=== PATIENT | female | born 1960 | race Caucasian/White ===

== ENCOUNTER 2017-04-03 17:33 | Inpatient (IN) | payer OTHER ==
[~2017-04-03] VITALS: Ht 162.6 cm; Wt 89.6 kg
[~2017-04-03 17:33] MED LIST: ALBU90OI INH; ATOR80 PO; Aspirin EC81 MG PO; CLOP75 PO; LISI5 PO; LORA10 PO; METO50 PO; NITR.4SL SL
[2017-04-03 19:05] LABS: Influenza A Positive (NEGATIVE); Influenza B Negative (NEGATIVE)
[2017-04-03] MEDS ORDERED: Atrovent Inha12.9 GM INH (19:16)
[2017-04-03] MEDS ORDERED: ALBU90OI INH (19:16)
[2017-04-03] MEDS ORDERED: LEVO750 PO (19:16)
[2017-04-03] MEDS ORDERED: Prednisone50 MG PO (19:16)
[2017-04-03 19:50] LABS: BASOPHILS ABSOLUTE AUTO 0.03 K/mm3 (0.00-0.23); BASOPHILS PERCENT AUTO 1 % (0-2); EOSINOPHILS ABSOLUTE AUTO 0.01 K/mm3 (0.00-0.68); EOSINOPHILS PERCENT AUTO 0 % (0-6); Hemoglobin 14.4 g/dL (11.5-16.0); IMMATURE GRAN ABSOLUTE AUTO 0.02 K/mm3 (0.00-0.10); IMMATURE GRAN PERCENT AUTO 0 % (0-1); LYMPHOCYTES ABSOLUTE AUTO 1.31 K/mm3 (0.84-5.20); LYMPHOCYTES PERCENT AUTO 22 % (21-46); MONOCYTES ABSOLUTE AUTO 0.73 K/mm3 (0.16-1.47); MONOCYTES PERCENT AUTO 12 % (4-13); Mean Corpuscular HGB 32.1 pg (26.0-34.0); Mean Corpuscular HGB Conc 32.7 g/dL (31.5-36.5); Mean Corpuscular Volume 98 fL (80-100); Mean Platelet Volume 12.4 fL (9.1-12.4); NEUTROPHILS ABSOLUTE AUTO 3.84 K/mm3 (1.96-9.15); NEUTROPHILS PERCENT AUTO 65 % (41-73); Platelet Count 123 K/mm3 (150-400); RDW Coefficient Variation 13.1 % (11.7-14.2); RDW Standard Deviation 46.7 fL (35.1-46.3); Red Blood Cell Count 4.49 M/mm3 (3.80-5.20); White Blood Cell Count 5.94 K/mm3 (4.00-11.30)
[2017-04-03 20:00] LABS: Alanine Aminotransfer (ALT/SGP 19 U/L (12-78); Albumin, Blood 3.1 g/dL (3.4-5.0); Albumin/Globulin Ratio 0.9 (0.8-1.8); Alk Phos 73 U/L (50-136); Anion Gap 9 mmol/L (6-16); Aspartate Aminotrans (AST/SGOT 20 U/L (12-37); Bilirubin, Total 0.9 mg/dL (0.1-1.0); Blood Urea Nitrogen 11 mg/dL (8-24); Bun/Creatinine Ratio 21.8 (12.0-20.0); CO2, Blood 32 mmol/L (21-32); Calcium, Blood 8.6 mg/dL (8.5-10.1); Chloride, Blood 101 mmol/L (98-108); Creatinine, Blood 0.51 mg/dL (0.40-1.00); Globulin, Blood 3.6 g/dL (2.2-4.0); Glomerular Filtration Rate >60 (60-); Glucose, Blood 120 mg/dL (70-99); Potassium, Blood 2.5 mmol/L (3.5-5.5); Sodium, Blood 142 mmol/L (136-145); Total Protein, Blood 6.7 g/dL (6.4-8.2)
[2017-04-03 21:32] LABS: Troponin I 0.016 ng/mL (0.000-0.040)
[2017-04-04 04:24] LABS: BASOPHILS ABSOLUTE AUTO 0.01 K/mm3 (0.00-0.23); BASOPHILS PERCENT AUTO 0 % (0-2); EOSINOPHILS PERCENT AUTO 0 % (0-6); Hematocrit 42.6 % (33.0-51.0); Hemoglobin 13.6 g/dL (11.5-16.0); IMMATURE GRAN ABSOLUTE AUTO 0.04 K/mm3 (0.00-0.10); IMMATURE GRAN PERCENT AUTO 1 % (0-1); LYMPHOCYTES ABSOLUTE AUTO 0.77 K/mm3 (0.84-5.20); LYMPHOCYTES PERCENT AUTO 9 % (21-46); MONOCYTES ABSOLUTE AUTO 0.38 K/mm3 (0.16-1.47); MONOCYTES PERCENT AUTO 5 % (4-13); Mean Corpuscular HGB 32.1 pg (26.0-34.0); Mean Corpuscular HGB Conc 31.9 g/dL (31.5-36.5); Mean Platelet Volume 12.5 fL (9.1-12.4); NEUTROPHILS PERCENT AUTO 85 % (41-73); Platelet Count 130 K/mm3 (150-400); RDW Coefficient Variation 13.1 % (11.7-14.2); RDW Standard Deviation 48.7 fL (35.1-46.3); Red Blood Cell Count 4.24 M/mm3 (3.80-5.20)
[2017-04-04 04:25] LABS: Mean Corpuscular Volume 101 fL (80-100)
[2017-04-04 04:53] LABS: Alanine Aminotransfer (ALT/SGP 18 U/L (12-78); Albumin, Blood 2.7 g/dL (3.4-5.0); Albumin/Globulin Ratio 0.7 (0.8-1.8); Alk Phos 66 U/L (50-136); Anion Gap 5 mmol/L (6-16); Aspartate Aminotrans (AST/SGOT 13 U/L (12-37); Bilirubin, Total 0.8 mg/dL (0.1-1.0); Blood Urea Nitrogen 11 mg/dL (8-24); Bun/Creatinine Ratio 25.1 (12.0-20.0); CO2, Blood 31 mmol/L (21-32); Calcium, Blood 7.6 mg/dL (8.5-10.1); Chloride, Blood 108 mmol/L (98-108); Creatinine, Blood 0.44 mg/dL (0.40-1.00); Globulin, Blood 3.7 g/dL (2.2-4.0); Glomerular Filtration Rate >60 (60-); Glucose, Blood 131 mg/dL (70-99); Potassium, Blood 3.4 mmol/L (3.5-5.5); Sodium, Blood 144 mmol/L (136-145); Total Protein, Blood 6.4 g/dL (6.4-8.2)
[2017-04-05 06:07] LABS: BASOPHILS ABSOLUTE AUTO 0.01 K/mm3 (0.00-0.23); BASOPHILS PERCENT AUTO 0 % (0-2); EOSINOPHILS PERCENT AUTO 0 % (0-6); Hematocrit 38.7 % (33.0-51.0); Hemoglobin 12.4 g/dL (11.5-16.0); Mean Corpuscular Volume 100 fL (80-100); Mean Platelet Volume 12.3 fL (9.1-12.4); Platelet Count 122 K/mm3 (150-400); RDW Coefficient Variation 13.2 % (11.7-14.2); RDW Standard Deviation 48.4 fL (35.1-46.3); Red Blood Cell Count 3.87 M/mm3 (3.80-5.20); White Blood Cell Count 7.31 K/mm3 (4.00-11.30)
[2017-04-05 06:09] LABS: IMMATURE GRAN ABSOLUTE AUTO 0.07 K/mm3 (0.00-0.10); IMMATURE GRAN PERCENT AUTO 1 % (0-1); LYMPHOCYTES PERCENT AUTO 19 % (21-46); MONOCYTES ABSOLUTE AUTO 0.25 K/mm3 (0.16-1.47); MONOCYTES PERCENT AUTO 3 % (4-13); NEUTROPHILS ABSOLUTE AUTO 5.58 K/mm3 (1.96-9.15); NEUTROPHILS PERCENT AUTO 76 % (41-73)
[2017-04-05 06:35] LABS: Anion Gap 7 mmol/L (6-16); Blood Urea Nitrogen 11 mg/dL (8-24); Bun/Creatinine Ratio 24.6 (12.0-20.0); CO2, Blood 27 mmol/L (21-32); Calcium, Blood 8.3 mg/dL (8.5-10.1); Chloride, Blood 109 mmol/L (98-108); Creatinine, Blood 0.45 mg/dL (0.40-1.00); Glomerular Filtration Rate >60 (60-); Glucose, Blood 156 mg/dL (70-99); Magnesium, Blood 1.9 mg/dL (1.6-2.4); Potassium, Blood 3.4 mmol/L (3.5-5.5); Sodium, Blood 143 mmol/L (136-145)
[2017-04-06 06:10] LABS: Anion Gap 7 mmol/L (6-16); Blood Urea Nitrogen 12 mg/dL (8-24); Bun/Creatinine Ratio 25.4 (12.0-20.0); CO2, Blood 28 mmol/L (21-32); Calcium, Blood 8.3 mg/dL (8.5-10.1); Chloride, Blood 107 mmol/L (98-108); Creatinine, Blood 0.47 mg/dL (0.40-1.00); Glomerular Filtration Rate >60 (60-); Glucose, Blood 149 mg/dL (70-99); Potassium, Blood 3.5 mmol/L (3.5-5.5); Sodium, Blood 142 mmol/L (136-145)
[2017-04-06] MEDS ORDERED: AZIT250 PO (14:17)
[2017-04-06] MEDS ORDERED: OSEL75CA PO (14:17)
[2017-04-06] MEDS ORDERED: PRED10 PO (14:20)
== END 2017-04-06 14:38 | disposition home or self-care (01) | DRG 871 ==
LOC: ER 17:33 → PCU 21:03 → MEDS 04-04 10:59 → ENPENDDIS 04-06 11:00 → MEDS 04-06 14:38
PROVIDERS: Emergency Medicine; Family Medicine; Internal Medicine
DX: A41.9 Sepsis, unspecified organism (principal); J09.X1 Influenza due to identified novel influenza A virus with pneumonia; J96.21 Acute and chronic respiratory failure with hypoxia; J44.0 Chronic obstructive pulmonary disease with (acute) lower respiratory infection; J44.1 Chronic obstructive pulmonary disease with (acute) exacerbation; F17.210 Nicotine dependence, cigarettes, uncomplicated; I25.2 Old myocardial infarction; I10 Essential (primary) hypertension; E87.6 Hypokalemia; E78.5 Hyperlipidemia, unspecified
CPT/HCPCS: 36415; 71046; 80048; 80053; 83735; 84484; 85025; 87070; 87205; 87804; 93005; 93010; 94640; 94760; 94762; 96365; 96366; 96367; 96368; 96372; 96375; 99285; J0456; J0696; J1100; J1650; J2920; J3480; J7030; J7040; J7050

== ENCOUNTER → 2018-10-30 | Outpatient (CLI) | payer OTHER ==
[~2018-10-30] MED LIST changes: +AZIT250 PO; +Atrovent Inha12.9 GM INH; +LEVO750 PO; +OSEL75CA PO; +PRED10 PO; +Prednisone50 MG PO
[2018-10-30 18:23] LABS: CHOL/HDL RATIO 5.1; Cholesterol 249 mg/dL (50-200); HDL Cholesterol 49 mg/dL (>39); LDL/HDL RATIO Unable to Calculate; Low Density Lipoprotein Chol Unable to Calculate mg/dL (0-110); Triglycerides 444 mg/dL (30-160); Very Low Density Lipoprot Chol Unable to Calculate mg/dL (6-32)
== END | disposition home or self-care (01) ==
LOC: LAB 17:22 → LAB SHORT 17:22
PROVIDERS: Nurse Practitioner Family
DX: E78.00 Pure hypercholesterolemia, unspecified (principal)
CPT/HCPCS: 80061

== ENCOUNTER 2021-12-07 09:25 | Inpatient (IN) | payer OTHER ==
[~2021-12-07] VITALS: Ht 162.6 cm; Wt 107.2 kg
[2021-12-07 10:41] LABS: BASOPHILS ABSOLUTE AUTO 0.07 K/mm3 (0.00-0.23); BASOPHILS PERCENT AUTO 1 % (0-2); EOSINOPHILS ABSOLUTE AUTO 0.04 K/mm3 (0.00-0.68); EOSINOPHILS PERCENT AUTO 0 % (0-6); Hematocrit 44.2 % (33.0-51.0); Hemoglobin 14.1 g/dL (11.5-16.0); IMMATURE GRAN ABSOLUTE AUTO 0.05 K/mm3 (0.00-0.10); IMMATURE GRAN PERCENT AUTO 1 % (0-1); LYMPHOCYTES ABSOLUTE AUTO 1.52 K/mm3 (0.84-5.20); LYMPHOCYTES PERCENT AUTO 15 % (21-46); MONOCYTES ABSOLUTE AUTO 0.53 K/mm3 (0.16-1.47); MONOCYTES PERCENT AUTO 5 % (4-13); Mean Corpuscular HGB Conc 31.9 g/dL (31.5-36.5); Mean Corpuscular Volume 101 fL (80-100); Mean Platelet Volume 11.7 fL (9.1-12.4); NEUTROPHILS ABSOLUTE AUTO 8.17 K/mm3 (1.96-9.15); NEUTROPHILS PERCENT AUTO 79 % (41-73); Platelet Count 193 K/mm3 (150-400); RDW Coefficient Variation 14.1 % (11.7-14.2); RDW Standard Deviation 51.5 fL (35.1-46.3); White Blood Cell Count 10.38 K/mm3 (4.00-11.30)
[2021-12-07 10:57] LABS: Albumin, Blood 3.4 g/dL (3.4-5.0); Albumin/Globulin Ratio 0.9 (0.8-1.8); Bilirubin, Total 2.1 mg/dL (0.1-1.0); Bun/Creatinine Ratio 26.3 (12.0-20.0); Calcium, Blood 9.4 mg/dL (8.5-10.1); Creatinine, Blood 0.49 mg/dL (0.40-1.00); Globulin, Blood 3.6 g/dL (2.2-4.0); Potassium, Blood 3.5 mmol/L (3.5-5.5)
[2021-12-07 12:15] LABS: Influenza A, PCR NEGATIVE (NEGATIVE); Influenza B, PCR NEGATIVE (NEGATIVE); Resp Syncytial Virus, PCR NEGATIVE (NEGATIVE); SARS-Cov-2 (COVID-19) PCR, MMC NEGATIVE (NEGATIVE)
--- NOTE | 2021-12-07 18:31 | NUR ---
SHIFT SUMMARY ASSUMED CARE OF PT AT 1520. PT ARRIVED FROM ER VIA HOSPITAL BED. PT ON 2 L O2 VIA NC, O2 SATS 93%. PT REPORTS SOB AND APPEARS TO BE ANXIOUS. PT UP ON SIDE OF BED AND STATES " I CANNOT LAY DOWN". VS;HR 115, SBP 130 - 140'S, RR 22. PT SETTLED AND ORIENTED TO ROOM. PT CALMED SHE GOT SETTLED AND STARTED "FEELING BETTER". POWERGLIDE PLACED IN R UA. PT ATE DINNER, CARDIZIEM GTT RUNNING AT 15MLS/HR. PT CURRENTLY SITTING UP IN BED W/HOB ELEVATED. PT USING BSC INDEPENDENTLY. PT USING FREQUENTLY AND EXPERIENCING URGENCY DUE TO LASIX. PT CURRENTLT WATCHING TV AND APPEARS RELAXED AND STATES SOB IS BETTER. CALL LIGHT IN REACH
--- NOTE | 2021-12-07 23:10 | NUR ---
PT HAS BEEN A&OX4. O2 SATS > 92% ON 2LPM. STATES HAS IMPROVED BUT IS STILL PRESENT. INCREASES WHEN UP TO BSC. PT UP TO BSC WITH INDEPENDENTLY TO VOID CLEAR, YELLOW URINE, HAD SMALL, BROWN, FORMED BM. PT COMPLAINING OF INTERMITTENT MIDSTERNAL CHEST PAIN 5/10 THAT "FEELS LIKE INDIGESTION". PT REPORTS PAIN IS IN FRONT AND BACK BUT DOES NOT RADIATE ANYWHERE ELSE. NO CHANGES TO VITAL SIGNS OF TELEMETRY WITH PAIN. REPORTS PT HAVING THIS SENSATION AT HOME REQUENTLY AND TREATS IT WITH TUMS. DR. CASTELLON INFORMED. RECEIVED ORDER FOR TUMS. CHEST PAIN SUBSIDES BEFORE TUMS GIVEN. WILL MONITOR.
--- NOTE | 2021-12-07 23:43 | NUR ---
MARVIN CANTOR STOPPED AT 1930 WITH HR IN 70'S. PT NOW IN 90'S TO LOW 100'S. WILL CONTINUES TO MONITOR.
[2021-12-08 03:49] LABS: Hematocrit 41.1 % (33.0-51.0); Hemoglobin 12.9 g/dL (11.5-16.0); Mean Corpuscular HGB Conc 31.4 g/dL (31.5-36.5); Mean Corpuscular Volume 102 fL (80-100); Mean Platelet Volume 11.9 fL (9.1-12.4); Platelet Count 158 K/mm3 (150-400); RDW Standard Deviation 52.3 fL (35.1-46.3); Red Blood Cell Count 4.03 M/mm3 (3.80-5.20); White Blood Cell Count 9.08 K/mm3 (4.00-11.30)
[2021-12-08 04:04] LABS: Bun/Creatinine Ratio 21.9 (12.0-20.0); Calcium, Blood 8.7 mg/dL (8.5-10.1); Creatinine, Blood 0.55 mg/dL (0.40-1.00); Magnesium, Blood 2.1 mg/dL (1.6-2.4); Potassium, Blood 3.2 mmol/L (3.5-5.5)
--- NOTE | 2021-12-08 05:51 | NUR ---
PT HAS HAD NO ACUTE CHANGES DURING THIS SHIFT. HR HAS REMAINED IN 90-LOW 100'S. OCCASIONAL SPIKES INTO 130'S BUT QUICKLY RETURNS TO 90'S AGAIN. NO FURTHER COMPLAINTS OF CHEST PAIN. O2 SATS REMAINED <90% ON 2LPM.
--- NOTE | 2021-12-08 16:49 | NUR ---
SHIFT SUMMARY: NEW ATRIAL FIB WITH RVR WELL CHF PATIENT IS A&OX4. PATIENTS HR AT REST STAYS BETWEEN 90-LOW 100'S BPM. HER HR WILL AT TIMES INCREASE TO 130 BPM WHEN BEARING DOWN/MOVEMENT BUT WILL QUICKLY COME DOWN TO HER RESTING HR RANGE. SHE IS ON 2L NC WITH >90% OXYGEN SATS. SHE DENIES SOB OR CHEST PAIN. SHE IS VOIDING AND IS TOLERATING PO INTAKE. SHE IS INDEP. TO THE BSC AND BED. PATIENT REPORTED HAVING A HEADACHE EARLIER IN THE SHIFT BUT WAS MANAGED WITH PO TYLENOL. CALLS APPROPRIATELY. CALL LIGHT WITHIN REACH. THE PLAN IS TO SWITCH HER IV LASIX TO PO TOMORROW. SHE WILL POSSIBLY DISCHARGE HOME TOMORROW OR FRIDAY IF APPROPRIATE.
--- NOTE | 2021-12-08 19:31 | NUR ---
PT IS A&OX4. COMPLAINTING OF MIDSTERNAL CHEST PAIN THAT PENITRATES TO HER BACK. INCREASES WITH EXPIRATION. DOES NOT TRAVEL TO HER SHOULDERS OR ARMS. FEELS LIKE INDIGESTION. PT MEDICATED FOR INDIGESTION JUST PREVIOUS TO SHIFT CHANGE WITHOUT ANY RESULTS. PT REPORTS THAT SHE TAKE PO NITRO AT HOME FOR CHEST PAIN. DR. CASTELLON CALLED, STAT SHE WILL PLACE ORDERS FOR HOME DOES OF NITRO. VITAL SIGNS RECOREDED IN ELECTRONIC CHARTE. PT REPORTS FEELING ANXIOUS DUE TO CONCERN CHEST PAIN BEING CAUSED BY HER HEART NOT INDIGESTION. PT CONSOLED. PT SATS > 90% ON 2 LPM.
--- NOTE | 2021-12-08 20:18 | NUR ---
TWO DOSES OF NITRO GIVEN. PT REPORTS CHEST PAIN HAS SUBSIDED. VSS. WILL MONITOR.
--- NOTE | 2021-12-09 04:26 | NUR ---
PT HAS HAD NO FURTHER EPISODES OF CHEST PAIN. HR HAS REMAINED A-FIB 90-110'S WITH OCCASIONAL INCREASES INTO THE 120'S THAT QUICKLY SUBSIDE. NO PRN METOPROLOL GIVEN. O2 SATS HAVE REMAINED > 90% ON 2 LPM. PT CONTINUES TO VOID CLEAR, TEA COLORED URINE IN BSC. INDEPENDENT WHEN UP. BLE EDEMA DECREASTED PER PT REPORT, NOW 1-2+. ATTEMPTING TO ELEVATE ON PILLOWS.
[2021-12-09 04:30] LABS: Albumin/Globulin Ratio 0.9 (0.8-1.8); Bilirubin, Total 2.1 mg/dL (0.1-1.0); Bun/Creatinine Ratio 26.1 (12.0-20.0); Calcium, Blood 9.1 mg/dL (8.5-10.1); Creatinine, Blood 0.54 mg/dL (0.40-1.00); Globulin, Blood 3.3 g/dL (2.2-4.0); Potassium, Blood 3.8 mmol/L (3.5-5.5); Thyroid Stimulating Hormone 2.72 uIU/mL (0.360-4.800); Total Protein, Blood 6.3 g/dL (6.4-8.2)
--- NOTE | 2021-12-09 07:18 | NUR ---
ASSUMED CARE: PT SITTING UPRIGHT IN BED, 2L NC IN PLACE. HR AFIB AT 114. RT AT BEDSIDE GIVING BREATHING TX AT THIS TIME. NO FURTHER NEEDS OR CONCERNS AT PRESENT.
--- NOTE | 2021-12-09 07:27 | NUR ---
ASSUMED CARE: PT SITTING IN CHAIR AT THIS TIME. WAS ON 3L SATTING 98%. TITRATED DOWN TO 2L. AFIB IN THE 60S ON TELE. DENIES NEEDS OR CONCERNS AT THIS TIME.
--- NOTE | 2021-12-09 11:28 | NUR ---
DR LOMBARDO REQUESTED THAT NURSING AMBULATE PT TO SEE IF OXYGEN IS REQUIRED. PT AMBULATED 30 FEET WITHOUT OXYGEN AND BEGAN TO DESATURATE TO 87%. HR WAS IN 120S WITH THIS. PLACED 2L O2 ON AND PT CONTINUED WALKING BETWEEN ICU AND PCU UNITS. NO FURTHER DESATURATIONS BUT HR OCCASIONALLY ELEVATED INTO 120S. CALL TO DR LOMBARDO TO RELAY THIS. STATED SHE WILL ORDER HOME O2 EVAL WITH RT.
[2021-12-09] MEDS ORDERED: IPRAT-ALBUT 0.5-3 ML INH (14:26)
[2021-12-09] MEDS ORDERED: METO50ER PO (14:28)
[2021-12-09] MEDS ORDERED: POTCHL20ER PO (15:41)
[2021-12-09] MEDS ORDERED: TORSE20 PO (15:41)
[2021-12-09] MEDS ORDERED: ELIQUIS5 M2 PO (15:41)
--- NOTE | 2021-12-09 17:00 | NUR ---
INSTRUCTIONS GIVEN TO PT REGARDING NEW MEDS AND FOLLOW UP APPOINTMENTS. DISCUSSED WITH PT OXYGEN USE AND THE IMPORTANCE OF KEEPING PRESCRIPTION UPDATED AND USING OXYGEN 24/ UNTIL DR TELLS HER OTHER [place]. HALEY ASHLEY'Maren WNL. PT ESCORTED OUT VIA WHEEL CHAIR BY HOSPITAL STAFF.
== END 2021-12-09 16:29 | disposition home or self-care (01) | DRG 291 ==
LOC: ER 09:25 → PCU 14:02
PROVIDERS: Emergency Medicine; Family Medicine Adult Medicine; Nurse Practitioner Acute Care; ADMIT Internal Medicine
DX: I11.0 Hypertensive heart disease with heart failure (principal); I50.31 Acute diastolic (congestive) heart failure; J96.01 Acute respiratory failure with hypoxia; Z20.822 Contact with and (suspected) exposure to COVID-19; I48.91 Unspecified atrial fibrillation; I25.10 Atherosclerotic heart disease of native coronary artery without angina pectoris; E78.5 Hyperlipidemia, unspecified; J44.9 Chronic obstructive pulmonary disease, unspecified; E87.6 Hypokalemia; Z87.891 Personal history of nicotine dependence
CPT/HCPCS: 0241U; 36415; 71045; 80048; 80053; 83735; 83880; 84443; 84484; 85025; 85027; 93005; 93010; 93306; 94640; 94664; 94760; 94761; 94762; 96365; 96366; 96375; 96376; 99285-25; A9270; C1751; J1650; J1940

== ENCOUNTER → 2021-12-14 | Outpatient (CLI) | payer OTHER ==
[~2021-12-14] MED LIST changes: +ELIQUIS5 M2 PO; +IPRAT-ALBUT 0.5-3 ML INH; +METO50ER PO; +POTCHL20ER PO; +TORSE20 PO
[2021-12-14 17:36] LABS: Bun/Creatinine Ratio 31.8 (12.0-20.0); Creatinine, Blood 0.5 mg/dL (0.40-1.00); Magnesium, Blood 2.3 mg/dL (1.6-2.4); Potassium, Blood 4.1 mmol/L (3.5-5.5)
== END | disposition home or self-care (01) ==
LOC: LAB 16:09 → LAB SHORT 16:09
PROVIDERS: Family Medicine
DX: I50.33 Acute on chronic diastolic (congestive) heart failure (principal)
CPT/HCPCS: 80048; 83735; 83880

== ENCOUNTER → 2023-08-26 | Outpatient (CLI) | payer OTHER ==
[2023-08-26 14:59] LABS: CHOL/HDL RATIO 1.9; Cholesterol 140 mg/dL (50-200); HDL Cholesterol 75 mg/dL (>39); LDL/HDL RATIO 0.5; Low Density Lipoprotein Chol 38 mg/dL (0-110); Triglycerides 133 mg/dL (30-160); Very Low Density Lipoprot Chol 26 mg/dL (6-32)
== END ==
LOC: LAB 12:24 → LAB SHORT 12:24
PROVIDERS: Family Medicine
DX: E78.2 Mixed hyperlipidemia (principal); I48.91 Unspecified atrial fibrillation
CPT/HCPCS: 80061; 83036; 84443

== ENCOUNTER → 2023-09-23 | Outpatient (CLI) | payer OTHER ==
[2023-09-26 20:25] LABS: HPV HIGH RISK BY TMA Not Detected; HPV SOURCE Cervical
== END ==
LOC: LAB SHORT 11:36 → LAB 11:36
PROVIDERS: Family Medicine
DX: Z12.4 Encounter for screening for malignant neoplasm of cervix (principal); Z01.419 Encounter for gynecological examination (general) (routine) without abnormal findings
CPT/HCPCS: 87624; G0123

== ENCOUNTER → 2023-12-31 | Outpatient (CLI) | payer OTHER | LOC: LAB SHORT 08:49 → LAB 08:49 | DX: R93.89 Abnormal findings on diagnostic imaging of other specified body structures (principal) | CPT/HCPCS: 88305 ==

== ENCOUNTER → 2024-05-12 | Outpatient (CLI) | payer OTHER ==
[~2024-05-12] MED LIST changes: +COMBIVENT RESPIM4 G1 INH; +Crestor40 MG PO; +DHA FROM ALGAE200 MG PO; +GARLIC200 MG; +LORA10ER PO
[2024-05-12 12:35] LABS: Appearance, Urine Clear (Clear); Bilirubin, Urine Neg (Neg); Blood, Urine Neg (Neg); Color, Urine Yellow (P-Yellow); Glucose Qualitative, Urine Neg (Neg); Ketones, Urine 1+ (Neg); Leukocyte Esterase, Urine 2+ (Neg); Nitrite, Urine Neg (Neg); Protein, Urine Neg (Neg); Specific Gravity, Urine 1.015 (1.003-1.022); Urobilinogen, Urine NORM (Normal)
[2024-05-12 13:04] LABS: Bacteria Mod /hpf; Red Blood Cells, Urine 0-2 /hpf (0-2); Squamous Epithelial Cells Many /hpf (Few)
== END ==
LOC: LAB 11:28 → LAB SHORT 11:28
PROVIDERS: Nurse Practitioner
DX: E80.6 Other disorders of bilirubin metabolism (principal); D64.9 Anemia, unspecified
CPT/HCPCS: 81001

== ENCOUNTER 2024-06-09 06:06 | Day surgery (SDC) | payer OTHER ==
[2024-06-09] VITALS (7 sets, daily range): BP systolic 106–140; BP diastolic 73–99
[~2024-06-09] VITALS: Ht 157.5 cm; Wt 84.0 kg
[~2024-06-09 06:06] MED LIST changes: +GARLIC PO; -GARLIC200 MG; +[UNRECOGNIZED DRUG - OTHER] PO
[2024-06-09] MEDS ORDERED: Lactated Ringer's 1,000 ML IV SCH ×2 (06:40→07:35)
[2024-06-09] MEDS ORDERED: propofoL 20 ML IV ONE (07:03)
[2024-06-09] MEDS ORDERED: FentaNYL Citrate 50 MCG/ML 2 ML Injection ONE (07:03)
--- NOTE | 2024-06-09 07:06 | NUR ---
History, Chart, Medications and Allergies reviewed before start of procedure. Pre-Op teaching done. Pt verbalizes understanding. Patient confirms NPO status and agrees with scheduled surgery. Patient States Post-Procedure ride home has been arranged.
[2024-06-09] MEDS ORDERED: Lidocaine HCl 1% 5 ML SYR INJ ONE (07:35)
[2024-06-09] MEDS ORDERED: Ondansetron HCl 2 MG / ML 2ML Vial ONE (07:38)
[2024-06-09] MEDS ORDERED: Dexamethasone Sod Phos 10 MG/ML 1ML VIAL ONE (07:38)
[2024-06-09] MEDS ORDERED: Albuterol 2.5 MG/3 ML VIAL INH PRN (07:55)
[2024-06-09] MEDS ORDERED: FentaNYL Citrate 50 MCG/ML 2 ML Injection IV PRN ×2 (07:55→08:00)
[2024-06-09] MEDS ORDERED: Ondansetron HCl 2 MG / ML 2ML Vial IV PRN (07:55)
[2024-06-09] MEDS ORDERED: Prochlorperazine Edisylate 10 mg Vial IV PRN (07:55)
[2024-06-09] MEDS ORDERED: HYDROmorphone HCl/Pf 1MG SYR IV PRN (07:55)
--- NOTE | 2024-06-09 08:30 | NUR ---
PT AUDIBLY WZ ON ADMIT TO PACU. DUO NEB GIVEN. RESP 22-28. SATS 88-91% ON 4 LITERS NASAL CANNULA. STEFANIE PAD IN PLACE C/D/I-PT DENIES PAIN OR NAUSEA.
[2024-06-09] MEDS ORDERED: Ipratropium/Albuterol SulF 2.5-0.5MG/3 ML Amp ONE (08:33)
--- NOTE | 2024-06-09 08:33 | NUR ---
06/09/24 0833 Idalia uAstin FLUID DEFICT 50ML
[2024-06-09] MEDS ORDERED: OxyCODONE 5 mg/Acetamin 325 mg TABLET PO PRN (08:40)
[2024-06-09] MEDS ORDERED: Ipratropium/Albuterol SulF 2.5-0.5MG/3 ML Amp INH ONE (09:00)
--- NOTE | 2024-06-09 09:17 | NUR ---
PT WIDE AWAKE ON ARRIVAL TO DAY SURGERY, PT REPORTS NEEDING TO GO TO THE BATHROOM. PT ABLE TO QUICKLY GET OUT OF BED AFTER PORTABLE O2 OBTAINED AND QUICKLY WALKS TO THE BATHROOM WITH STEADY GAIT. PT NOTED TO HAVE SCANT VAGINAL DRAINAGE. PT REPORTS MILD CRAMPING BUT NOT PAINFUL. PT IN NO ACUTE DISTRESS. REVIEWED DISCHARGE INSTRUCTIONS WITH PATIENT AND PT DISHCARGED ON 4L O2 WITH BIOX AT 94%, PT REPORTS BREATHING WELL FOR HER. HOME WITH .
== END 2024-06-09 09:10 | disposition home or self-care (01) ==
LOC: ORSCMMR 06:06 → ORD 07:30 → ORSCMMR 09:10 → ORD 09:30
PROVIDERS: Obstetrics & Gynecology
PROC: 0UDB8ZX Extraction of Endometrium, Via Natural or Artificial Opening Endoscopic, Diagnostic (ICD-10-PCS; principal; 2024-06-09 07:30)
DX: N95.0 Postmenopausal bleeding (principal); I10 Essential (primary) hypertension; C34.90 Malignant neoplasm of unspecified part of unspecified bronchus or lung; I48.91 Unspecified atrial fibrillation; E66.9 Obesity, unspecified; Z68.34 Body mass index [BMI] 34.0-34.9, adult; F17.210 Nicotine dependence, cigarettes, uncomplicated; I25.2 Old myocardial infarction; Z79.82 Long term (current) use of aspirin; Z79.899 Other long term (current) drug therapy; Z79.01 Long term (current) use of anticoagulants
CPT/HCPCS: 88305; J1100; J1171; J2405; J2704; J3010; J7120

== ENCOUNTER 2024-06-30 13:32 | Emergency (ER) | payer OTHER ==
[~2024-06-30] VITALS: Ht 157.5 cm; Wt 88.5 kg
[2024-06-30] MEDS ORDERED: Ipratropium/Albuterol SulF 2.5-0.5MG/3 ML Amp INH ONE (14:05)
[2024-06-30] MEDS ORDERED: MethylPREDNISolone Sod Succ 125 MG Vial IV ONE (14:15)
[2024-06-30 14:19] LABS: BASOPHILS ABSOLUTE AUTO 0.08 K/mm3 (0.00-0.23); BASOPHILS PERCENT AUTO 1 % (0-2); EOSINOPHILS ABSOLUTE AUTO 0.16 K/mm3 (0.00-0.68); EOSINOPHILS PERCENT AUTO 2 % (0-6); Hematocrit 30.1 % (33.0-51.0); Hemoglobin 9.2 g/dL (11.5-16.0); IMMATURE GRAN ABSOLUTE AUTO 0.04 K/mm3 (0.00-0.10); IMMATURE GRAN PERCENT AUTO 1 % (0-1); LYMPHOCYTES PERCENT AUTO 9 % (21-46); MONOCYTES ABSOLUTE AUTO 0.72 K/mm3 (0.16-1.47); MONOCYTES PERCENT AUTO 9 % (4-13); Mean Corpuscular HGB 32.5 pg (26.0-34.0); Mean Corpuscular HGB Conc 30.6 g/dL (31.5-36.5); Mean Corpuscular Volume 106 fL (80-100); Mean Platelet Volume 11.1 fL (9.1-12.4); NEUTROPHILS ABSOLUTE AUTO 6.13 K/mm3 (1.96-9.15); NEUTROPHILS PERCENT AUTO 78 % (41-73); Platelet Count 197 K/mm3 (150-400); RDW Coefficient Variation 14.4 % (11.7-14.2); Red Blood Cell Count 2.83 M/mm3 (3.80-5.20); White Blood Cell Count 7.83 K/mm3 (4.00-11.30)
[2024-06-30 14:42] LABS: Albumin, Blood 3.4 g/dL (3.4-5.0); Bilirubin, Total 0.9 mg/dL (0.1-1.0); Bun/Creatinine Ratio 23.3 (12.0-20.0); Calcium, Blood 9.2 mg/dL (8.5-10.1); Creatinine, Blood 0.95 mg/dL (0.40-1.00); Globulin, Blood 3.5 g/dL (2.2-4.0); Potassium, Blood 4.5 mmol/L (3.5-5.5); Total Protein, Blood 6.9 g/dL (6.4-8.2)
[2024-06-30 16:23] LABS: Source, Urine Clean Catch
[2024-06-30] MEDS ORDERED: Doxycycline Hyclate 100 MG TAB PO ONE (16:25)
[2024-06-30 16:34] LABS: Influenza A, PCR NEGATIVE (NEGATIVE); Influenza B, PCR NEGATIVE (NEGATIVE); Resp Syncytial Virus, PCR NEGATIVE (NEGATIVE); SARS-Cov-2 (COVID-19) PCR, MMC NEGATIVE (NEGATIVE)
[2024-06-30] MEDS ORDERED: DOXY100 PO (17:12)
[2024-06-30] MEDS ORDERED: PRED20 PO (17:12)
[2024-06-30 17:13] VITALS: BP 116/88
[2024-06-30 18:33] LABS: Appearance, Urine Hazy (Clear); Bilirubin, Urine Neg (Neg); Blood, Urine 2+ (Neg); Color, Urine Yellow (P-Yellow); Glucose Qualitative, Urine Neg (Neg); Ketones, Urine Neg (Neg); Leukocyte Esterase, Urine 2+ (Neg); Nitrite, Urine Neg (Neg); Protein, Urine 2+ (Neg); Urobilinogen, Urine NORM (Normal)
[2024-06-30 19:19] LABS: Amorphous Light (0-Heavy); Bacteria Mod /hpf; Red Blood Cells, Urine 0-2 /hpf (0-2); Squamous Epithelial Cells Few /hpf (Few); Transitional Epithelial Cells Rare /hpf (0-Rare)
[2024-06-30 19:20] LABS: Mucus Mod (0-Heavy)
== END 2024-06-30 17:29 | disposition home or self-care (01) ==
LOC: ER 13:32
PROVIDERS: Student in an Organized Health Care Education/Training Program
DX: J43.9 Emphysema, unspecified (principal); J90 Pleural effusion, not elsewhere classified; I25.2 Old myocardial infarction; E78.5 Hyperlipidemia, unspecified; I11.9 Hypertensive heart disease without heart failure; I25.10 Atherosclerotic heart disease of native coronary artery without angina pectoris; Z88.0 Allergy status to penicillin; Z79.899 Other long term (current) drug therapy; Z99.81 Dependence on supplemental oxygen; Z79.01 Long term (current) use of anticoagulants
CPT/HCPCS: 0241U; 71045; 71260; 80053; 81001; 83880; 84484; 85025; 87086; 93005; 93010; 94640; 94664; 96374-59; 99285-25; A9270; J2919; Q9967

== ENCOUNTER 2024-10-08 10:50 | Day surgery (SDC) | payer OTHER ==
[~2024-10-08] VITALS: Ht 157.5 cm; Wt 90.9 kg
[~2024-10-08 10:50] MED LIST changes: +DOXY100 PO; +IPRAT-ALBUT 0.5-3 ML NEB; +PRED20 PO
[2024-10-08 11:40] VITALS: BP 120/94
--- NOTE | 2024-10-08 11:52 | NUR ---
PT AMBULATORY INTO SDS. INCREASED WOB/SOB NOTED. PT ON 6 LITERS NASAL CANULA. LUNGS TIGHT AND DIMINISHED R>L-SATS >90% PT REPORTS OCCASIONAL LOOSE COUGH PRODUCTIVE OF SMALL AMOUNT OF BLOOD-TINGED SPUTUM.PT UNALBE TO STAND ON SCALE FOR WEIGHT AT THIS TIME. PT TAKEN TO SPOT 1 VIA WHEELCHAIR. NPO STATUS CONFIRMED. PT SPOUSE IS RIDE HOME TODAY.
--- NOTE | 2024-10-08 12:13 | NUR ---
10/08/24 1213 Radha Isbell History, Chart, Medications and Allergies reviewed before start of procedure. MONITOR INTACT WITH CONTINUOUS PULSE OXIMETRY, INTERMITTENT BLOOD PRESSURE. SEE MD NOTES.
--- NOTE | 2024-10-08 12:15 | NUR ---
AT BEDSIDE. INFORMED CONSENT FOR THORACENTESIS COMPLETE-NO IV NEEDED PROCEDURE DONE UNDER LOCAL ANESTHESIA-SEE INFORMED CONSENT.
[2024-10-08 13:16] VITALS: BP 122/108
[2024-10-08 13:24] LABS: Automated BF RBC Count 0.002 M/mm3 (0-0); Automated BF WBC Count 0.975 K/mm3 (0-999)
--- NOTE | 2024-10-08 13:26 | NUR ---
TO STEP POST THORACENTESIS. SHANITA PROCEDURE WELL. DRESSING TO RIGHT/FLANK CDI. VERBALIZED UNDERSTANDING OF DC INSTRUCTIONS, WOUND CARE, FOLLOW UP. DC'D VIA WC TO PRIVATE CAR WITH STAGE BUILDER.
[2024-10-08 13:27] VITALS: BP 122/82
[2024-10-08 13:31] LABS: RBC Count, Body Fluid 2000 /mm3 (0-0)
[2024-10-08 13:32] LABS: Color, Body Fluid Yellow (None-Yellow)
[2024-10-08 13:41] LABS: Albumin, Body Fluid 1.7 g/dL; Glucose, Body Fluid 116 mg/dL; Lactate Dehydrogenase, Body Fl 93 U/L
[2024-10-08 14:13] LABS: Lymphocytes, Fluid 69.0 % (0.0-18.0); Monocytes/Mononuclear, Fluid 26.0 % (0.0-50.0); Neutrophils, Fluid 5.0 % (0.0-25.0); Total Cell Count, Body Fluid 100
== END 2024-10-08 13:30 | disposition home or self-care (01) ==
LOC: ORSCMMR 10:50 → ORD 12:00 → ORSCMMR 13:30
PROVIDERS: Student in an Organized Health Care Education/Training Program
PROC: 0W993ZX Drainage of Right Pleural Cavity, Percutaneous Approach, Diagnostic (ICD-10-PCS; principal; 2024-10-08 12:00)
DX: C34.31 Malignant neoplasm of lower lobe, right bronchus or lung (principal); J90 Pleural effusion, not elsewhere classified; Z87.891 Personal history of nicotine dependence; J44.9 Chronic obstructive pulmonary disease, unspecified; Z79.899 Other long term (current) drug therapy; Z99.81 Dependence on supplemental oxygen; I48.91 Unspecified atrial fibrillation; Z79.01 Long term (current) use of anticoagulants; I25.10 Atherosclerotic heart disease of native coronary artery without angina pectoris; I10 Essential (primary) hypertension; E78.5 Hyperlipidemia, unspecified; I25.2 Old myocardial infarction
CPT/HCPCS: 71045; 82042; 82945; 83615; 84157; 87070; 87075; 87205; 88108; 88305; 88341; 88342; 89051; C1751

== ENCOUNTER 2024-11-05 18:17 | Inpatient (IN) | payer OTHER ==
[~2024-11-05] VITALS: Ht 157.5 cm; Wt 91.2 kg
[~2024-11-05 18:17] MED LIST changes: +Etomidate 2MG / ML 10ML Vial XX ONE; +Midazolam HCl 1MG / ML 2ML Vial IV ONE; +Rocuronium Bromide 10 MG/ML 5ML Injection IV ONE
[2024-11-05 19:00] LABS: BASOPHILS ABSOLUTE AUTO 0.06 K/mm3 (0.00-0.23); BASOPHILS PERCENT AUTO 1 % (0-2); EOSINOPHILS ABSOLUTE AUTO 0.13 K/mm3 (0.00-0.68); EOSINOPHILS PERCENT AUTO 2 % (0-6); Hematocrit 30.0 % (33.0-51.0); Hemoglobin 9.2 g/dL (11.5-16.0); IMMATURE GRAN ABSOLUTE AUTO 0.09 K/mm3 (0.00-0.10); IMMATURE GRAN PERCENT AUTO 1 % (0-1); LYMPHOCYTES ABSOLUTE AUTO 0.42 K/mm3 (0.84-5.20); LYMPHOCYTES PERCENT AUTO 5 % (21-46); MONOCYTES ABSOLUTE AUTO 0.70 K/mm3 (0.16-1.47); MONOCYTES PERCENT AUTO 9 % (4-13); Mean Corpuscular HGB Conc 30.7 g/dL (31.5-36.5); Mean Corpuscular Volume 104 fL (80-100); NEUTROPHILS ABSOLUTE AUTO 6.72 K/mm3 (1.96-9.15); NEUTROPHILS PERCENT AUTO 83 % (41-73); NRBC ABSOLUTE 0.00 K/mm3 (0.00-0.02); NRBC Auto 0.0 /100 WBC (0.0-0.2); Platelet Count 185 K/mm3 (150-400); RDW Coefficient Variation 13.8 % (11.7-14.2); RDW Standard Deviation 52.9 fL (35.1-46.3)
[2024-11-05 19:26] LABS: Alanine Aminotransfer (ALT/SGP 13.0 U/L (12-78); Albumin, Blood 3.5 g/dL (3.4-5.0); Albumin/Globulin Ratio 0.9 (0.8-1.8); Anion Gap 5.0 mmol/L (3-11); Aspartate Aminotrans (AST/SGOT 19.0 U/L (12-37); Bilirubin, Total 1.3 mg/dL (0.1-1.0); Blood Urea Nitrogen 26.0 mg/dL (8-24); CO2, Blood 40.0 mmol/L (21-32); Calcium, Blood 9.8 mg/dL (8.5-10.1); Chloride, Blood 98.0 mmol/L (98-108); Creatinine, Blood 0.95 mg/dL (0.40-1.00); Globulin, Blood 3.7 g/dL (2.2-4.0); Glucose, Blood 117.0 mg/dL (70-99); Potassium, Blood 4.6 mmol/L (3.5-5.5); Sodium, Blood 138.0 mmol/L (136-145); Total Protein, Blood 7.2 g/dL (6.4-8.2)
[2024-11-05] MEDS ORDERED: Ipratropium/Albuterol SulF 2.5-0.5MG/3 ML Amp INH ONE (20:30)
[2024-11-05] MEDS ORDERED: Albuterol 2.5 MG/3 ML VIAL INH PRN (20:45)
[2024-11-05] MEDS ORDERED: Ipratropium/Albuterol SulF 2.5-0.5MG/3 ML Amp INH SCH (20:50)
[2024-11-05] MEDS ORDERED: Ondansetron HCl 2 MG / ML 2ML Vial IV PRN (21:00)
[2024-11-05 22:01] LABS: pH Blood Venous 7.28 (7.34-7.37)
[2024-11-05 23:59] VITALS: BP 118/87
[2024-11-06] VITALS (8 sets, daily range): BP systolic 111–145; BP diastolic 66–127
[2024-11-06] MEDS ORDERED: FISH OIL 1,0001 EA10 PO (00:12)
[2024-11-06] MEDS ORDERED: Ginseng100 MG PO (00:13)
--- NOTE | 2024-11-06 06:35 | NUR ---
SHIFT SUMMARY PATIENT ARRIVED TO PCU 19 VIA STRETCHER. SLIDE TRANSFER COMPLETED FOR WORK OF BREATHING. PATIENT IS ALERT AND ORIENTED X4, UNSTEADY ON HER FEET WITH JERKY SPASTIC MOVEMENTS OF HER EXTREMITES, PATIENT REPORTS THIS HAS BEEN GOING ON FOR A COUPLE WEEKS NOW. PATIENT IS CURRENTLY ON THE AIRVO SETTINGS 50L AT 58% FIO2. BLOOD PRESSURE STABLE, WAS WEANED OFF THE CARDIZEM DRIP. WILL CONTINUE TO MONITOR. CALL LIGHT WITHIN REACH.
--- NOTE | 2024-11-06 13:52 | NUR ---
MD TO BEDSIDE AFTER PT SPOUSE ARRIVED. THIS RN AND MD TO ROOM TO ANSWER QUESTIONS AND DISCUSS CODE STATUS PER PT REQUEST. PT AND SPUSE UPDATED ON PT STAUS AND PLAN OF CARE. PT AND SPOUSE ASKED WUESTIONS RELATED TO CODE STATUS, QUESTIONS ANSWERED BY MD. PT DECIDED TO REMAIN DNR.
--- NOTE | 2024-11-06 18:32 | NUR ---
SHIFT SUMMARY PT A/OX4 AND COOPERATIVE OF CARE. PT ABLE TO EXPRESS NEEDS AND CALLED APPROPIATE. PT INDEPENDENT IN BED AND 1 PER ASSIST WHEN UP IN ROOM, TOLERATED WELL. PT WAS ON AIRVO 50L 60% THIS MORNING, TITRATED TO BASELINE 3L NC. OTHER VSS THROUGHOUT SHIFT. PT ANXIOUS AT TIMES, EXPRESSED FRUSTRATION OF AIRVO SYSTEM. PT AND PT UPDATED BY THIS RN AND MD ON PT STATUS AND PLAN OF CARE. PULM CONSULT IN PLACE, AWAITING MANAGER FAST FOOD AFTER CHEST CT. DISCUSSION WITH PT AND ABOUT CODE STATUS DONE WITH MD, PT TO EMAIN DNR.
[2024-11-07 00:22] VITALS: BP 147/96
[2024-11-07 01:03] LABS: pH Blood Venous 7.36 (7.34-7.37)
--- NOTE | 2024-11-07 01:03 | NUR ---
PT HAD DECREASE IN MENTATION - MORE SOMNOLENT AND CONFUSED. PT WAS ON 3L O2, RT PLACED PT BACK ON AIRVO. CALL PLACED TO DR. WYMAN AND ORDERS OBTAINED FOR VBG.
[2024-11-07 01:17] LABS: BASOPHILS ABSOLUTE AUTO 0.01 K/mm3 (0.00-0.23); BASOPHILS PERCENT AUTO 0 % (0-2); EOSINOPHILS ABSOLUTE AUTO 0.00 K/mm3 (0.00-0.68); EOSINOPHILS PERCENT AUTO 0 % (0-6); Hematocrit 26.5 % (33.0-51.0); Hemoglobin 8.0 g/dL (11.5-16.0); IMMATURE GRAN ABSOLUTE AUTO 0.06 K/mm3 (0.00-0.10); IMMATURE GRAN PERCENT AUTO 1 % (0-1); LYMPHOCYTES ABSOLUTE AUTO 0.38 K/mm3 (0.84-5.20); LYMPHOCYTES PERCENT AUTO 5 % (21-46); MONOCYTES ABSOLUTE AUTO 0.23 K/mm3 (0.16-1.47); MONOCYTES PERCENT AUTO 3 % (4-13); Mean Corpuscular HGB Conc 30.2 g/dL (31.5-36.5); Mean Corpuscular Volume 105 fL (80-100); NEUTROPHILS ABSOLUTE AUTO 7.15 K/mm3 (1.96-9.15); NEUTROPHILS PERCENT AUTO 91 % (41-73); NRBC ABSOLUTE 0.00 K/mm3 (0.00-0.02); NRBC Auto 0.0 /100 WBC (0.0-0.2); Platelet Count 157 K/mm3 (150-400); RDW Coefficient Variation 13.8 % (11.7-14.2); RDW Standard Deviation 52.5 fL (35.1-46.3)
[2024-11-07 01:32] LABS: Anion Gap 5.0 mmol/L (3-11); Blood Urea Nitrogen 48.0 mg/dL (8-24); CO2, Blood 40.0 mmol/L (21-32); Calcium, Blood 9.0 mg/dL (8.5-10.1); Chloride, Blood 97.0 mmol/L (98-108); Creatinine, Blood 1.37 mg/dL (0.40-1.00); Glucose, Blood 183.0 mg/dL (70-99); Potassium, Blood 5.0 mmol/L (3.5-5.5); Sodium, Blood 137.0 mmol/L (136-145)
--- NOTE | 2024-11-07 01:42 | NUR ---
PT REMOVED AIRVO AND IS CURRENTLY REFUSING TO WEAR IT. OXIMASK PLACED AND PT IS TOLERATING AT THIS TIME, 13L FOR 97%. WILL CONTINUE TO TITRATE. PT WAS 76% ON ROOM AIR.
[2024-11-07 06:03] VITALS: BP 127/102
[2024-11-07 07:59] VITALS: BP 111/74
[2024-11-07] MEDS ORDERED: Torsemide 20 MG TAB PO SCH (09:00)
[2024-11-07 11:50] VITALS: BP 120/78
[2024-11-07 16:23] VITALS: BP 115/83
--- NOTE | 2024-11-07 18:00 | NUR ---
SHIFT SUMMARY; ASSUMED CARE AT 0700. A/A/OX4, SLEEPY IN AM BUT WAKES AND ALERT BY MID MORNING. AMBULATES TO BATHROOM WITH SBA. 3L 02 VIA NC, REPOSITIONS SELF IN BED, USES CALL LIGHT. AFIB 120-140'S MEDICATED PER EMAR WITH ADDITIONAL DOSE OF METOPROLOL IN EVENING. WILL CONTINUE TO MONITOR RATE. DENIES SO OR CP. VSS. [facility].
[2024-11-07 20:49] VITALS: BP 124/97
[2024-11-07] MEDS ORDERED: NS 250 ML IV PRN (21:05)
[2024-11-07] MEDS ORDERED: Polyethylene Glycol 3350 17 gm PO PRN (23:25)
[2024-11-08] VITALS (8 sets, daily range): BP systolic 99–135; BP diastolic 74–98
[2024-11-08 04:32] LABS: BASOPHILS ABSOLUTE AUTO 0.01 K/mm3 (0.00-0.23); BASOPHILS PERCENT AUTO 0 % (0-2); EOSINOPHILS ABSOLUTE AUTO 0.00 K/mm3 (0.00-0.68); EOSINOPHILS PERCENT AUTO 0 % (0-6); Hematocrit 27.3 % (33.0-51.0); Hemoglobin 8.1 g/dL (11.5-16.0); IMMATURE GRAN ABSOLUTE AUTO 0.09 K/mm3 (0.00-0.10); IMMATURE GRAN PERCENT AUTO 1 % (0-1); LYMPHOCYTES ABSOLUTE AUTO 0.58 K/mm3 (0.84-5.20); LYMPHOCYTES PERCENT AUTO 4 % (21-46); MONOCYTES ABSOLUTE AUTO 1.12 K/mm3 (0.16-1.47); MONOCYTES PERCENT AUTO 8 % (4-13); Mean Corpuscular HGB Conc 29.7 g/dL (31.5-36.5); Mean Corpuscular Volume 107 fL (80-100); NEUTROPHILS ABSOLUTE AUTO 12.32 K/mm3 (1.96-9.15); NEUTROPHILS PERCENT AUTO 87 % (41-73); NRBC ABSOLUTE 0.00 K/mm3 (0.00-0.02); NRBC Auto 0.0 /100 WBC (0.0-0.2); Platelet Count 165 K/mm3 (150-400); RDW Coefficient Variation 14.1 % (11.7-14.2); RDW Standard Deviation 54.7 fL (35.1-46.3)
[2024-11-08 04:57] LABS: Anion Gap 4.0 mmol/L (3-11); Blood Urea Nitrogen 54.0 mg/dL (8-24); CO2, Blood 39.0 mmol/L (21-32); Calcium, Blood 9.1 mg/dL (8.5-10.1); Chloride, Blood 98.0 mmol/L (98-108); Creatinine, Blood 1.1 mg/dL (0.40-1.00); Glucose, Blood 130.0 mg/dL (70-99); Potassium, Blood 4.6 mmol/L (3.5-5.5); Sodium, Blood 136.0 mmol/L (136-145)
--- NOTE | 2024-11-08 06:45 | NUR ---
SHIFT SUMMARY: PT IS A&OX4, ANXIOUS AND COOPERATIVE WITH CARE. VSS ON 3L HFNC. AFIB 115-140'S. DILTIAZEM GTT TITRATED PER ORDER. THIS RN CHANGED CODE STATUS TO FULL CODE PER PT'S REQUEST. RESIDENT ZAMZAM MADE AWARE. DENIES PAIN. ON A REGULAR DIET. SBA TO BSC. VOIDING SMALL AMOUNTS OF CLEAR YELLOW, MALODOROUS URINE. PT DOES HAVE SOME STRESS INCONTINENCE WITH COUGHING, PAD IN PLACE. NO BM THIS SHIFT. LAST BM, TOUCH UP PAINTER HAND, CALLED RESIDENT TO GET BOWEL CARE ORDERED. BED IN LOWEST POSITION, CALL LIGHT WITHIN REACH.
[2024-11-08] MEDS ORDERED: Magnesium Hydroxide Conc 10 ML UDC PO PRN (11:15)
[2024-11-08] MEDS ORDERED: Docusate Sodium/Senna 1 Tab PO SCH (11:20)
--- NOTE | 2024-11-08 18:07 | NUR ---
SHIFT SUMMARY; ASSUMED CARE AT 0700. A/A/OX4 DURING SHIFT. SBA TO RESTROOM AND BEDSIDE COMMODE. 3L 02 VIA NC. SOB AFTER AMBULATION BUT RETURNS TO BASELINE AFTER A FEW MINUTES. CARDIZEM DC'D AT 1500. AFIB 100-115 UNTIL 1800, HR INCREASED TO 140-150'S. TELEPHONE CALL TO DR. ABRAHAM, RESTARTED CARDIZEM GTT AT 5MG/HR PER VERBAL ORDER FROM DR. ABRAHAM. BLOOD PRESSURE STABLE, SATS 92-96%. ASKS FOR O2 TO BE INCREASED TO 5L WHEN AMBULATING. WILL CONTINUE TO MONITOR AND TREAT UNTIL CHANGE OF SHIFT AND REPORT TO NOC SHIFT RN.
[2024-11-08] MEDS ORDERED: LORazepam 2 MG/ML 1ML Injection IV ONE (19:40)
[2024-11-08] MEDS ORDERED: IPRATROPIUM INH SCH (21:25)
[2024-11-08] MEDS ORDERED: ALBUTEROL INH SCH (21:25)
[2024-11-09] VITALS (65 sets, daily range): BP systolic 82–179; BP diastolic 56–163
[2024-11-09 02:52] LABS: pH Blood Venous 7.22 (7.34-7.37)
[2024-11-09 02:55] LABS: BASOPHILS ABSOLUTE AUTO 0.03 K/mm3 (0.00-0.23); BASOPHILS PERCENT AUTO 0 % (0-2); EOSINOPHILS ABSOLUTE AUTO 0.07 K/mm3 (0.00-0.68); EOSINOPHILS PERCENT AUTO 0 % (0-6); Hematocrit 30.9 % (33.0-51.0); Hemoglobin 9.1 g/dL (11.5-16.0); IMMATURE GRAN ABSOLUTE AUTO 0.33 K/mm3 (0.00-0.10); IMMATURE GRAN PERCENT AUTO 2 % (0-1); LYMPHOCYTES ABSOLUTE AUTO 0.65 K/mm3 (0.84-5.20); LYMPHOCYTES PERCENT AUTO 4 % (21-46); MONOCYTES ABSOLUTE AUTO 1.96 K/mm3 (0.16-1.47); MONOCYTES PERCENT AUTO 11 % (4-13); Mean Corpuscular HGB Conc 29.4 g/dL (31.5-36.5); Mean Corpuscular Volume 108 fL (80-100); NEUTROPHILS ABSOLUTE AUTO 15.05 K/mm3 (1.96-9.15); NEUTROPHILS PERCENT AUTO 83 % (41-73); NRBC ABSOLUTE 0.04 K/mm3 (0.00-0.02); NRBC Auto 0.2 /100 WBC (0.0-0.2); Platelet Count 201 K/mm3 (150-400); RDW Coefficient Variation 14.5 % (11.7-14.2); RDW Standard Deviation 57.5 fL (35.1-46.3)
[2024-11-09] MEDS ORDERED: Midazolam HCl 1MG / ML 2ML Vial ONE (03:04)
[2024-11-09] MEDS ORDERED: Midazolam HCl 1MG / ML 2ML Vial IV ONE (03:05)
[2024-11-09] MEDS ORDERED: FentaNYL Citrate 50 MCG/ML 2 ML Injection IV ONE (03:05)
[2024-11-09] MEDS ORDERED: FentaNYL Citrate 50 MCG/ML 2 ML Injection ONE ×2 (03:06→04:02)
[2024-11-09 03:13] LABS: Anion Gap 6.0 mmol/L (3-11); Blood Urea Nitrogen 50.0 mg/dL (8-24); CO2, Blood 39.0 mmol/L (21-32); Calcium, Blood 9.1 mg/dL (8.5-10.1); Chloride, Blood 97.0 mmol/L (98-108); Creatinine, Blood 1.14 mg/dL (0.40-1.00); Glucose, Blood 147.0 mg/dL (70-99); Potassium, Blood 5.2 mmol/L (3.5-5.5); Sodium, Blood 137.0 mmol/L (136-145)
[2024-11-09] MEDS ORDERED: NS 1,000 ML IV SCH (03:15)
[2024-11-09] MEDS ORDERED: NS 1,000 ML IV ONE (03:18)
[2024-11-09] MEDS ORDERED: Flumazenil 0.1 MG / ML 5ML Vial ONE (03:50)
[2024-11-09] MEDS ORDERED: Flumazenil 0.1 MG / ML 5ML Vial IV ONE (03:50)
[2024-11-09] MEDS ORDERED: FentaNYL Citrate 50 MCG/ML 2 ML Injection IV PRN ×3 (04:05→11:45)
[2024-11-09 04:08] LABS: Automated BF RBC Count 0.004 M/mm3 (0-0); Automated BF WBC Count 0.792 K/mm3 (0-999)
[2024-11-09 04:09] LABS: RBC Count, Body Fluid 4000 /mm3 (0-0)
[2024-11-09 04:39] LABS: Color, Body Fluid Yellow (None-Yellow); Eosinophils, Fluid 6.0 % (0.0-10.0); Lymphocytes, Fluid 59.0 % (0.0-18.0); Monocytes/Mononuclear, Fluid 24.0 % (0.0-50.0); Neutrophils, Fluid 6.0 % (0.0-25.0); Total Cell Count, Body Fluid 100
[2024-11-09 05:39] LABS: pH Blood Venous 7.17 (7.34-7.37)
[2024-11-09 05:41] LABS: Lactate Dehydrogenase, Body Fl 88 U/L
[2024-11-09 07:22] LABS: pH Blood Venous 7.27 (7.34-7.37)
--- NOTE | 2024-11-09 07:33 | NUR ---
SHIFT SUMMARY: PT IS A&OX2, ANXIOUS AND NOT COOPERATIVE WITH CARE. VSS ON 7L HFNC. AFIB 115-140'S. DILTIAZEM GTT TITRATED PER ORDER. ATTEMPTED TO PLACE PT ON AIRVO FOR INCREASED OXYGEN NEEDS, PT REMOVED IT AND REFUSED TO WEAR IT. DENIES PAIN. ON A REGULAR DIET. SBA TO BSC. VOIDING SMALL AMOUNTS OF CLEAR YELLOW, MALODOROUS URINE. PT DOES HAVE SOME STRESS INCONTINENCE WITH COUGHING, PAD IN PLACE. NO BM THIS SHIFT, BOWEL CARE ADMINISTERED. PT PLACED ON BIPAP. D/T PT'S INCREASED OXYGEN NEEDS, DR DUMONT INSERTED A RIGHT SIDE CHEST TUBE AT BEDSIDE. PT'S VBG CONTINUES TO WORSEN WITH CRITICAL VALUES, ICU TRANSFER NOW IN PROGRESS. BED IN LOWEST POSITION, CALL LIGHT WITHIN REACH. BED ALARM SET FOR PT'S SAFETY. BEDSIDE REPORT GIVEN TO ISAEL CLAUDIO AT 0650. PT TRANSFERRED TO ICU AT 0705. TRANSFERRED PT TO ICU WITH ALL BELONGINGS. CALL PLACED AND LEFT MESSAGE TO TO INFORM HIM OF THE TRANSFER.
[2024-11-09] MEDS ORDERED: Naloxone HCl 0.4MG / ML 1ML Vial ONE (08:00)
[2024-11-09] MEDS ORDERED: Naloxone HCl 0.4MG / ML 1ML Vial IV ONE (08:05)
[2024-11-09] MEDS ORDERED: Ondansetron HCl 2 MG / ML 2ML Vial IV ONE (08:10)
[2024-11-09] MEDS ORDERED: Metoclopramide HCl 5MG / ML 2ML Vial ONE (08:20)
[2024-11-09] MEDS ORDERED: Metoclopramide HCl 5MG / ML 2ML Vial IV ONE (08:25)
--- NOTE | 2024-11-09 09:00 | NUR ---
INTUBATION PERFORMED BY FERMIN FISHER AND CLEOPATRA. 0851 20MG ETOMIDATE IVP 0852 INTUBATION WITH7.5 ETT, 25 AT THE TEETH. SPO2 >96% THROUGHOUT. 0854 PT BUCKING VENT, 80MG REYNOLD ADMINISTERED IVP 0855 BP 89/51(61) 500ML LR BOLUS INITIATED 0857 VENT SETTINGS CURRENTLY AC 20/360/5/65% CXR PENDING
[2024-11-09] MEDS ORDERED: Cetylpyridinium Chloride 1 EA MISC MT SCH (09:10)
[2024-11-09] MEDS ORDERED: Albuterol 2.5 MG/3 ML VIAL INH PRN (09:35)
[2024-11-09] MEDS ORDERED: Ipratropium/Albuterol SulF 2.5-0.5MG/3 ML Amp INH SCH (09:40)
[2024-11-09] MEDS ORDERED: Albuterol 2.5 MG/3 ML VIAL INH ONE (10:00)
[2024-11-09 10:49] LABS: BASOPHILS ABSOLUTE AUTO 0.01 K/mm3 (0.00-0.23); BASOPHILS PERCENT AUTO 0 % (0-2); EOSINOPHILS ABSOLUTE AUTO 0.01 K/mm3 (0.00-0.68); EOSINOPHILS PERCENT AUTO 0 % (0-6); Hematocrit 29.7 % (33.0-51.0); Hemoglobin 8.7 g/dL (11.5-16.0); IMMATURE GRAN ABSOLUTE AUTO 0.11 K/mm3 (0.00-0.10); IMMATURE GRAN PERCENT AUTO 1 % (0-1); LYMPHOCYTES ABSOLUTE AUTO 0.34 K/mm3 (0.84-5.20); LYMPHOCYTES PERCENT AUTO 3 % (21-46); MONOCYTES ABSOLUTE AUTO 0.59 K/mm3 (0.16-1.47); MONOCYTES PERCENT AUTO 5 % (4-13); Mean Corpuscular HGB Conc 29.3 g/dL (31.5-36.5); Mean Corpuscular Volume 108 fL (80-100); NEUTROPHILS ABSOLUTE AUTO 11.58 K/mm3 (1.96-9.15); NEUTROPHILS PERCENT AUTO 92 % (41-73); NRBC ABSOLUTE 0.05 K/mm3 (0.00-0.02); NRBC Auto 0.4 /100 WBC (0.0-0.2); Platelet Count 156 K/mm3 (150-400); RDW Coefficient Variation 14.5 % (11.7-14.2); RDW Standard Deviation 57.3 fL (35.1-46.3)
[2024-11-09 11:14] LABS: Alanine Aminotransfer (ALT/SGP 16.0 U/L (12-78); Albumin, Blood 3.3 g/dL (3.4-5.0); Albumin/Globulin Ratio 1.1 (0.8-1.8); Anion Gap 5.0 mmol/L (3-11); Aspartate Aminotrans (AST/SGOT 16.0 U/L (12-37); Bilirubin, Total 1.6 mg/dL (0.1-1.0); Blood Urea Nitrogen 50.0 mg/dL (8-24); CO2, Blood 39.0 mmol/L (21-32); Calcium, Blood 9.2 mg/dL (8.5-10.1); Chloride, Blood 99.0 mmol/L (98-108); Creatinine, Blood 1.05 mg/dL (0.40-1.00); Globulin, Blood 3.0 g/dL (2.2-4.0); Glucose, Blood 115.0 mg/dL (70-99); Magnesium, Blood 2.3 mg/dL (1.6-2.4); Phosphorus, Blood 2.8 mg/dL (2.5-4.9); Potassium, Blood 5.1 mmol/L (3.5-5.5); Sodium, Blood 138.0 mmol/L (136-145); Total Protein, Blood 6.3 g/dL (6.4-8.2)
[2024-11-09 11:15] LABS: pH Blood Venous 7.40 (7.34-7.37)
[2024-11-09] MEDS ORDERED: Midazolam HCl 1MG / ML 2ML Vial IV PRN (11:50)
[2024-11-09] MEDS ORDERED: Acetaminophen 160MG / 5ML 10.15 UDC PT PRN (11:55)
[2024-11-09] MEDS ORDERED: Hydrogen Peroxide 1.5 % Solution MT SCH (12:00)
--- NOTE | 2024-11-09 12:56 | NUR ---
ASSUMPTION OF CARE PATIENT ARRIVED FROM PCU AT 0700 WITH BIPAP ON. PT WAS IN BUE SOFT RESTRAINTS D/T AGITATION AND ATTEMPTING TO PULL LINES/CHEST TUBE OUT. PT COMPLAINED OF IRRITATION WITH BIPAP, TRANSITIONED TO NC TO DETERMINE TOLERANCE PER PROVIDER. PT WENT FROM AGITATED AND REACHING FOR LINES TO SOMNOLENT AND DIFFICULT TO AROUSE. DILLON CATH WAS PLACED. IN THE SPAN OF AN HOUR, THE PT WAS INCREASINGLY MORE CONFUSED, SOMNOLENT, AND MORE DIFFICULT TO AROUSE. PT COULD NOT WAKE ENOUGH TO ANSWER QUESTIONS. DECIDED TO INTUBATE. PT WAS INTUBATED AT 0853, ETT TUBE WAS 25 AT TEETH, LATER REPOSITIONED TO 23 AT TEETH. OG TUBE AND ETT TUBE WERE CONFIRMED BY XRAY. PT RASS +2 WITH JUST PROPOFOL FOR SEDATION AND MAP <65, DR ADDED FENTANYL AND VERSED PRNS. PROPOFOL WAS TITRATED DOWN WHILE MAINTAINING A RASS OF -1 AND MAP >65.
[2024-11-09] MEDS ORDERED: CefTRIAXone Sodium 1,000 MG in NS 100 ML IV SCH (17:12)
--- NOTE | 2024-11-09 18:21 | NUR ---
END OF SHIFT SUMMARY: PT WAS TRANSFERRED FROM PCU AT 0700 D/T INCREASED SOB. PT WAS ON BIPAP, AGITATED, AND TRYING TO PULL AT LINES. PT TRANSITIONED TO NC PER DR'S ORDERS. PT QUICKLY WENT FROM AGITATAED TO SOMNOLENT, INCREASINGLY CONFUSED, AND DIFFICULT TO AROUSE. PT WAS INTUBATED AT 0853. DILLON CATH DRAINING TO GRAVITY AND OG TUBE PLACED. PT ARRIVED WITH LWR PIV AND RFA PIV WAS PLACED. RIGHT CHEST TUBE IN PLACE AND FLOWING WITH SUCTION TO GRAVITY. AUSCULATED A RUB, WHEEZING, AND TIGHTNESS THROUGHOUT ALL LOBES, IMPROVED AFTER INTUBATION. PT DIFFICULT TO MAINTAIN SEDATION. PROP RUNNING AT 40-55MCG/KG/HR WITH VERSED AND FENTANYL PUSHES Q1 PRN. HR 100-140S T/O THE SHIFT. MAP WAS <65 WHEN PROP WAS AT 60, TITRATED DOWN AND DID FENT AND VERSED IN ADJ. LAST HR OF SHIFT PT BEGAN TO EXPERIENCE HYPERTENSION.
[2024-11-10] VITALS (98 sets, daily range): BP systolic 72–136; BP diastolic 40–119
[2024-11-10 03:34] LABS: BASOPHILS ABSOLUTE AUTO 0.01 K/mm3 (0.00-0.23); BASOPHILS PERCENT AUTO 0 % (0-2); EOSINOPHILS ABSOLUTE AUTO 0.00 K/mm3 (0.00-0.68); EOSINOPHILS PERCENT AUTO 0 % (0-6); Hematocrit 24.0 % (33.0-51.0); Hemoglobin 7.6 g/dL (11.5-16.0); IMMATURE GRAN ABSOLUTE AUTO 0.09 K/mm3 (0.00-0.10); IMMATURE GRAN PERCENT AUTO 1 % (0-1); LYMPHOCYTES ABSOLUTE AUTO 0.36 K/mm3 (0.84-5.20); LYMPHOCYTES PERCENT AUTO 4 % (21-46); MONOCYTES ABSOLUTE AUTO 0.69 K/mm3 (0.16-1.47); MONOCYTES PERCENT AUTO 8 % (4-13); Mean Corpuscular HGB Conc 31.7 g/dL (31.5-36.5); NEUTROPHILS ABSOLUTE AUTO 7.85 K/mm3 (1.96-9.15); NEUTROPHILS PERCENT AUTO 87 % (41-73); NRBC ABSOLUTE 0.04 K/mm3 (0.00-0.02); NRBC Auto 0.4 /100 WBC (0.0-0.2); Platelet Count 130 K/mm3 (150-400); RDW Coefficient Variation 13.8 % (11.7-14.2); RDW Standard Deviation 51.1 fL (35.1-46.3)
[2024-11-10 03:37] LABS: Mean Corpuscular Volume 102 fL (80-100)
[2024-11-10 03:58] LABS: Alanine Aminotransfer (ALT/SGP 13.0 U/L (12-78); Albumin, Blood 2.9 g/dL (3.4-5.0); Albumin/Globulin Ratio 1.1 (0.8-1.8); Anion Gap 8.0 mmol/L (3-11); Aspartate Aminotrans (AST/SGOT 15.0 U/L (12-37); Bilirubin, Total 1.4 mg/dL (0.1-1.0); Blood Urea Nitrogen 49.0 mg/dL (8-24); CO2, Blood 36.0 mmol/L (21-32); Calcium, Blood 8.8 mg/dL (8.5-10.1); Chloride, Blood 97.0 mmol/L (98-108); Creatinine, Blood 1.14 mg/dL (0.40-1.00); Globulin, Blood 2.6 g/dL (2.2-4.0); Glucose, Blood 142.0 mg/dL (70-99); Potassium, Blood 4.2 mmol/L (3.5-5.5); Sodium, Blood 137.0 mmol/L (136-145); Total Protein, Blood 5.5 g/dL (6.4-8.2)
--- NOTE | 2024-11-10 06:23 | NUR ---
SHIFT SUMMARY: PT REMAINS SEDATED/INTUBATED. PROPOFOL GTT TITRATED FOR VENT COMPLIANCE-SEE FLOWSHEET FOR TITRATIONS.FENTANYL PRN ADMINISTERED. PT RASS BETWEEN +1 TO -3. PT WILL AT TIMES PULL ON RESTRAINTS, MOVING TOWARDS ETT TUBE. LUNGS DIMINISHED T/O. VENT SETTINGS AC/VC +18/360/7/40%. R CHEST TUBE REMAINS IN PLACE, PATENT, DRAINING TO GRAVITY. SBP STABLE. MAP>65. HR 110-140 T/O THE NIGHT, AFIB. OG TUBE IN PLACE, CLAMPED. BT HYPOACTIVE X4. DILLON CATH REMAINS PATENT, DRAINING TO GRAVITY. PIV TO RWRIST AND LWRIST.
[2024-11-10] MEDS ORDERED: Pantoprazole Sodium 40 MG Injection IV SCH (16:30)
--- NOTE | 2024-11-10 20:14 | NUR ---
SHIFT SUMMARY: PT CONTINUES TO BE INTUBATED AND SEDATED WITH PROPOFOL AT 30MCG/KG/MIN, PT ABLE TO OPEN EYES SPONTANEOUSLY, ABLE TO FOLLOW COMMANDS, ANSWERING YES/NO QUESTIONS USING HEAD GESTURES, CURRENT RASS -1. PT HAD A VENT WEANING TRIAL AND SEDATION VACATION , PT FAILED SPONTANOUS VENT MODE AFTER APPROX. 1 HOUR, PT PLACED BACK ON ACVC MODE 14/400/5/30% SEDATION RESTARTED AT THIS TIME. R CHEST TUBE TO SUCTION, NO CREPITUS, AIR LEAK NOTED, 200ML SEROSANGUANIOUS FLUID OBTAINED. R ANTERIOR THOR-QUINN TO SUCTION, 13ML OF SEROUS FLUID NOTED, NO AIR LEAK/CREPITUS NOTED. PT IN AFIB WITH HR 120-140'S, CARDZIEM DRIP RESTARTED, SEE CRITICAL CARE FLOWSHEET. PT HYPOTENSIVE EARLIER IN THE SHIFT, 500ML LR BOLUS GIVEN, SEDATION DECRESED, SEE CRITICAL CARE FLOW SHEET. BP STABLE NOW, MAP'S ABOVE 65. OGT CLAMPED, ACTIVE BT IN ALL QUADRANTS, NO BM THIS SHIFT. DILLON PATENT, DRAINING TO GRAVITY. BILATERAL SOFT WRIST RESTRAINTS IN PLACE PT PREVENT SELF-EXTUBATION. PT REPOSITIONED Q2HRS. PLAN OF CARE ONGOING.
[2024-11-11] VITALS (87 sets, daily range): BP systolic 77–155; BP diastolic 46–132
[2024-11-11 06:27] LABS: BASOPHILS ABSOLUTE AUTO 0.00 K/mm3 (0.00-0.23); BASOPHILS PERCENT AUTO 0 % (0-2); EOSINOPHILS ABSOLUTE AUTO 0.01 K/mm3 (0.00-0.68); EOSINOPHILS PERCENT AUTO 0 % (0-6); Hematocrit 23.2 % (33.0-51.0); Hemoglobin 7.5 g/dL (11.5-16.0); IMMATURE GRAN ABSOLUTE AUTO 0.10 K/mm3 (0.00-0.10); IMMATURE GRAN PERCENT AUTO 1 % (0-1); LYMPHOCYTES ABSOLUTE AUTO 0.59 K/mm3 (0.84-5.20); LYMPHOCYTES PERCENT AUTO 7 % (21-46); MONOCYTES ABSOLUTE AUTO 0.85 K/mm3 (0.16-1.47); MONOCYTES PERCENT AUTO 10 % (4-13); Mean Corpuscular HGB Conc 32.3 g/dL (31.5-36.5); Mean Corpuscular Volume 100 fL (80-100); NEUTROPHILS ABSOLUTE AUTO 6.84 K/mm3 (1.96-9.15); NEUTROPHILS PERCENT AUTO 82 % (41-73); NRBC ABSOLUTE 0.04 K/mm3 (0.00-0.02); NRBC Auto 0.5 /100 WBC (0.0-0.2); Platelet Count 138 K/mm3 (150-400); RDW Coefficient Variation 14.4 % (11.7-14.2); RDW Standard Deviation 52.0 fL (35.1-46.3)
--- NOTE | 2024-11-11 06:36 | NUR ---
EXTRUDER OPERATOR HORIZONTAL SUMMARY: PATIENT ALERT AND FOLLOWING VERBAL COMMANDS TO X4 EXTREM. NODS APPROPRIATELY TO NURSE VERBAL CUES. REPORTING NO PAIN AT THIS TIME. CONTINUES TURN Q2 SCHEDULE. CONTINUES ON BILATERAL SOFT WRIST RESTRAINTS. AFIBB TO MONITOR. CURRENTLY ON PRECIDEX 0.6 MCG/KG/HR, PROPOFOL 15 MCG/KG/MIN, DILTIAZEM 10 MG/HR, AND LEVO AT 1 MCG/MIN TO RIGHT IJ QUAD LUMEN. CURRENT HR GOAL <110. INTUBATED 23 @ BOTTOM TEETH: AC/VC 16/400/30%/5. CHEST TUBES WITH TOTAL 566 OUTPUT THIS SHIFT. CENTRAL LINE DRESSING CHANGED THIS SHIFT AND BATH PROVIDED. OGT REMAINS CLAMPED. DILLON TO GRAVITY WITH CLEAR URINE OUTPUT. NO BM THIS SHIFT. SAFETY MAINTAINED THROUGHOUT SHIFT.
[2024-11-11 07:02] LABS: Anion Gap 7.0 mmol/L (3-11); Blood Urea Nitrogen 38.0 mg/dL (8-24); CO2, Blood 36.0 mmol/L (21-32); Calcium, Blood 8.9 mg/dL (8.5-10.1); Chloride, Blood 99.0 mmol/L (98-108); Creatinine, Blood 1.05 mg/dL (0.40-1.00); Glucose, Blood 134.0 mg/dL (70-99); Magnesium, Blood 2.2 mg/dL (1.6-2.4); Phosphorus, Blood 4.0 mg/dL (2.5-4.9); Potassium, Blood 3.6 mmol/L (3.5-5.5); Sodium, Blood 138.0 mmol/L (136-145)
--- NOTE | 2024-11-11 08:31 | NUR ---
ASSUMED CARE NOTE: ASSUMED CARE OF PT AT 0700. PT IS ALERT AND ORIENTED TO SELF/PLACE. PT ABLE TO WRITE AND USE COMMUNICATION BOARD TO MAKE NEEDS KNOWN. PROPOFOL PAUSED AT 0757, PRECEDEX AT 0.4MCG/KH/HR. PT SWITCHED TO SPONTANEOUS MODE, PRESSURE SUPPORT OF 8, PEEP 5, 35% FIO2. ETT 7.5, 23 AT TEETH. PT IN AFIB WITH HR 80-90'S, CARDIZEM TITRATED DOWN TO 5MG/HR, BP STABLE, LEVOPHED PAUSED. R ANTERIOR THORA-VENT TO SUCTION, NO AIR LEAK/CREPITUS. R LATERAL CHEST TUBE TO SUCTION, NO AIR/LEAK/CREPITUS NOTED. OGT CLAMPED, DILLON PATENT, DRAINING TO GRAVITY. BILATERAL WRIST RESTRAINTS IN PLACE. CENTRAL LINE DRESSING OOZING, CHANGED.
--- NOTE | 2024-11-11 19:49 | NUR ---
SHIFT SUMMARY: PT ALERT AND ORIENTED X 4 ABLE TO FOLLOW COMMANDS AND COMMUNICATE NEEDS. PT EXTUBATED AT 0925, CURRENTLY AT 3L OF OXYGEN VIA NC (BASELINE) RIGHT LATERAL CHEST TUBE IN PLACE, NO AIR/LEAK OR CREPITUS NOTED, R ANTERIOR CHEST TUBE IN PLACE, NO AIRLEAK/CREPITUS NOTED. PT IN AFIB, HR CLIMBING, CURRENTLY 120'S. CALLED, ORDERS FOR LANOXIN GIVEN FOR RATE CONTROL. PT PASSED BEDSIDE SWALLOW EVAL, TOLERATING CLEAR LIQUID W/O COMPLICATIONS. PT C/O CONSTIPATION. DILLON PATENT, DRAINING TO GRAVITY. PT WORKED WITH OT TODAY, ABLE TO SIT IN THE CHAIR FOR 1HR, TOLERATED WELL. BEDSIDE REPORT GIVEN TO EMMANUEL CLAUDIO. BED AT LOWEST LEVEL CALL LIGHT WITHIN REACH.
[2024-11-12] VITALS (20 sets, daily range): BP systolic 95–137; BP diastolic 51–103
[2024-11-12 03:58] LABS: BASOPHILS ABSOLUTE AUTO 0.01 K/mm3 (0.00-0.23); BASOPHILS PERCENT AUTO 0 % (0-2); EOSINOPHILS ABSOLUTE AUTO 0.03 K/mm3 (0.00-0.68); EOSINOPHILS PERCENT AUTO 0 % (0-6); Hematocrit 25.0 % (33.0-51.0); Hemoglobin 7.8 g/dL (11.5-16.0); IMMATURE GRAN ABSOLUTE AUTO 0.11 K/mm3 (0.00-0.10); IMMATURE GRAN PERCENT AUTO 1 % (0-1); LYMPHOCYTES ABSOLUTE AUTO 0.45 K/mm3 (0.84-5.20); LYMPHOCYTES PERCENT AUTO 5 % (21-46); MONOCYTES ABSOLUTE AUTO 0.96 K/mm3 (0.16-1.47); MONOCYTES PERCENT AUTO 10 % (4-13); Mean Corpuscular HGB Conc 31.2 g/dL (31.5-36.5); Mean Corpuscular Volume 101 fL (80-100); NEUTROPHILS ABSOLUTE AUTO 7.90 K/mm3 (1.96-9.15); NEUTROPHILS PERCENT AUTO 84 % (41-73); NRBC ABSOLUTE 0.03 K/mm3 (0.00-0.02); NRBC Auto 0.3 /100 WBC (0.0-0.2); Platelet Count 148 K/mm3 (150-400); RDW Coefficient Variation 14.6 % (11.7-14.2); RDW Standard Deviation 54.9 fL (35.1-46.3)
[2024-11-12 04:14] LABS: Anion Gap 5.0 mmol/L (3-11); Blood Urea Nitrogen 28.0 mg/dL (8-24); CO2, Blood 37.0 mmol/L (21-32); Calcium, Blood 8.5 mg/dL (8.5-10.1); Chloride, Blood 101.0 mmol/L (98-108); Creatinine, Blood 0.92 mg/dL (0.40-1.00); Glucose, Blood 97.0 mg/dL (70-99); Magnesium, Blood 2.1 mg/dL (1.6-2.4); Phosphorus, Blood 4.2 mg/dL (2.5-4.9); Potassium, Blood 3.8 mmol/L (3.5-5.5); Sodium, Blood 139.0 mmol/L (136-145)
--- NOTE | 2024-11-12 08:27 | NUR ---
[place] of Care: Care assumed at 0700hr. Patient alert and oriented x4. VSS, spO2- 98-100% on 3L/NC (baseline). Denies dyspnea/SOB. Chest tube to rt lateral chest wall, site secure, no crepitus noted. Chest tube also to rt anterior chest wall, site secure, no crepitus noted. Both chest tubes to wall suction, no fluctuation or air leak/bubbling noted. Serosanguineous drainage noted to both collection chambers. Will discuss placing both chest tubes to water-seal with Dr. Ferreira. Rt IJ central line in place, patent and intact. Plan to remove IJ after placing power-glide IV. Shafer cath patent and intact, draining clear yellow urine. Plan to remove Shafer cath after consultation with Dr. Ferreira. Call light in reach, makes needs known.
--- NOTE | 2024-11-12 18:08 | NUR ---
Shift Summary: No significant changes throughout shift. Patient remains alert and oriented x4. C/o pain to rt lateral chest tube site, effectively managed with x1 prn tylenol. Tolerated several transfers with FFW and [id number] to recliner and BSC throughout shift. VS remains stable, continues on baseline 3L/NC, denies dyspnea/SOB. X-ray obtained this morning at approx 1000hr. X-ray showed some return of rt sided pneumothorax, therefore both chest tubes remained to suction throughout shift. Both chest tube sites remain secure/intact. Shafer cath removed this shift, x2 voids in BSC after removal. Power-glide placed to JUAN CARLOS, patent and intact. Rt IJ central line removed without difficulty or complication. Call light in reach, makes needs known. Will continue to monitor until report to NOC shift RN.
[2024-11-13] VITALS (14 sets, daily range): BP systolic 100–120; BP diastolic 56–90
[2024-11-13 03:59] LABS: BASOPHILS ABSOLUTE AUTO 0.01 K/mm3 (0.00-0.23); BASOPHILS PERCENT AUTO 0 % (0-2); EOSINOPHILS ABSOLUTE AUTO 0.09 K/mm3 (0.00-0.68); EOSINOPHILS PERCENT AUTO 1 % (0-6); Hematocrit 26.7 % (33.0-51.0); Hemoglobin 8.3 g/dL (11.5-16.0); IMMATURE GRAN ABSOLUTE AUTO 0.16 K/mm3 (0.00-0.10); IMMATURE GRAN PERCENT AUTO 2 % (0-1); LYMPHOCYTES ABSOLUTE AUTO 0.58 K/mm3 (0.84-5.20); LYMPHOCYTES PERCENT AUTO 8 % (21-46); MONOCYTES ABSOLUTE AUTO 0.93 K/mm3 (0.16-1.47); MONOCYTES PERCENT AUTO 12 % (4-13); Mean Corpuscular HGB Conc 31.1 g/dL (31.5-36.5); Mean Corpuscular Volume 102 fL (80-100); NEUTROPHILS ABSOLUTE AUTO 5.95 K/mm3 (1.96-9.15); NEUTROPHILS PERCENT AUTO 77 % (41-73); NRBC ABSOLUTE 0.00 K/mm3 (0.00-0.02); NRBC Auto 0.0 /100 WBC (0.0-0.2); Platelet Count 147 K/mm3 (150-400); RDW Coefficient Variation 14.6 % (11.7-14.2); RDW Standard Deviation 54.9 fL (35.1-46.3)
[2024-11-13 04:29] LABS: Albumin, Blood 2.7 g/dL (3.4-5.0); Anion Gap 5 mmol/L (3-11); Blood Urea Nitrogen 28 mg/dL (8-24); CO2, Blood 35 mmol/L (21-32); Calcium, Blood 9.1 mg/dL (8.5-10.1); Chloride, Blood 102 mmol/L (98-108); Creatinine, Blood 1.04 mg/dL (0.40-1.00); Glucose, Blood 99 mg/dL (70-99); Phosphorus, Blood 3.7 mg/dL (2.5-4.9); Potassium, Blood 3.8 mmol/L (3.5-5.5); Sodium, Blood 138 mmol/L (136-145)
--- NOTE | 2024-11-13 06:30 | NUR ---
SHIFT SUMMARY PT HAS TOLERATED NIGHT WELL WITH NO SIGNIFICANT EVENTS OR CHANGES IN STATUS. PT CHEST TUBES DRAINING SMALL AMOUNTS AT THIS TIME. PT HAS COMPLAINED OF PAIN AT SITE OF CHEST TUBES THAT WAS ABLE TO BE CONTROLLED WITH TYLENOL. PT HAD EVENT OVERNIGHT OF APPARENT SLEEP APNEA AND MAY REQUIRE CPAP. PT OTHERWISE RESTING COMFORTABLY IN ROOM, CALL LIGHT WITHIN REACH. WILL CONTINUE TO MONITOR UNTIL REPORT PASSED TO DAY SHIFT TEAM.
--- NOTE | 2024-11-13 09:32 | NUR ---
ASSUMPTION OF CARE: PATIENT IS ALERT AND ORIENTED X 4 ABLE TO MAKE NEEDS KNOWN, STILL HAS ANTERIOR THORAVENT AND LATERAL CHEST TUBE BOTH TO SUCTION CONTINIOUS -20'. DENIES CARDIAC CHEST PAIN, DOES HAVE PAIN ASOCIATED WITH THORAVENT, DENIES SOB. HR WAS TRENDING INTO THE LOW 100'S AFIB, NO ACUTE CONCERNS NOTED FROM PATIENT, USING THE CALL LIGHT APPROPRIATELY, UP 1P ASSIST FOR SBA, CXR THIS AM RESULTS PENDING, PLAN OF CARE CONTINUES
[2024-11-13] MEDS ORDERED: Torsemide 20 MG TAB PO SCH (10:00)
[2024-11-13] MEDS ORDERED: HYDROcodone 5-APAP 325 TAB PO PRN (13:35)
--- NOTE | 2024-11-13 16:40 | NUR ---
EOS: PATIENT CHANGES FROM ASSUMPTION. ~260 OF DRAINAGE FROM LATERAL RIGHT CHEST TUBE, NONE FROM THORAVENT, CXR RESULTED. PATIENT REMAINS ON 3L NO SIGNIFICANT CHANGES, VSS, AFEBRILE. RR <20. STARTED HER HOME DIURETIC TODAY, AND INCREASED ORAL PAIN MEDICATION, NO ACUTE CONCERN FROM THIS RN. PLAN OF CARE CONTNIUES.
[2024-11-14] VITALS (7 sets, daily range): BP systolic 97–118; BP diastolic 57–77
[2024-11-14 03:36] LABS: BASOPHILS ABSOLUTE AUTO 0.02 K/mm3 (0.00-0.23); BASOPHILS PERCENT AUTO 0 % (0-2); EOSINOPHILS ABSOLUTE AUTO 0.15 K/mm3 (0.00-0.68); EOSINOPHILS PERCENT AUTO 2 % (0-6); Hematocrit 26.4 % (33.0-51.0); Hemoglobin 8.3 g/dL (11.5-16.0); IMMATURE GRAN ABSOLUTE AUTO 0.22 K/mm3 (0.00-0.10); IMMATURE GRAN PERCENT AUTO 3 % (0-1); LYMPHOCYTES ABSOLUTE AUTO 0.60 K/mm3 (0.84-5.20); LYMPHOCYTES PERCENT AUTO 7 % (21-46); MONOCYTES ABSOLUTE AUTO 0.97 K/mm3 (0.16-1.47); MONOCYTES PERCENT AUTO 12 % (4-13); Mean Corpuscular HGB Conc 31.4 g/dL (31.5-36.5); Mean Corpuscular Volume 102 fL (80-100); NEUTROPHILS ABSOLUTE AUTO 6.51 K/mm3 (1.96-9.15); NEUTROPHILS PERCENT AUTO 77 % (41-73); NRBC ABSOLUTE 0.00 K/mm3 (0.00-0.02); NRBC Auto 0.0 /100 WBC (0.0-0.2); Platelet Count 141 K/mm3 (150-400); RDW Coefficient Variation 14.6 % (11.7-14.2); RDW Standard Deviation 53.2 fL (35.1-46.3)
[2024-11-14 04:01] LABS: Albumin, Blood 2.7 g/dL (3.4-5.0); Anion Gap 7 mmol/L (3-11); Blood Urea Nitrogen 35 mg/dL (8-24); CO2, Blood 35 mmol/L (21-32); Calcium, Blood 8.4 mg/dL (8.5-10.1); Chloride, Blood 100 mmol/L (98-108); Creatinine, Blood 1.20 mg/dL (0.40-1.00); Glucose, Blood 96 mg/dL (70-99); Phosphorus, Blood 4.7 mg/dL (2.5-4.9); Potassium, Blood 3.6 mmol/L (3.5-5.5); Sodium, Blood 138 mmol/L (136-145)
--- NOTE | 2024-11-14 06:44 | NUR ---
SHIFT SUMMARY PT HAS TOLERATED SHIFT WITH NO SIGNIFICANT EVENTS OR CHANGES IN STATUS OVERNIGHT. PT REMAINS ON 3L NC IS BASELINE AT HOME. PT HAS TWO CHEST TUBES CONNECTED TO SUCTION THAT HAVE HAD LITTLE OUTPUT OVERNIGHT. PT HAS BEEN ABLE TO GET UP WITH ONE PERSON STANDBY ASSIST TO BEDSIDE COMMODE AND HAS BEEN CALL LIGHT APPROPRIATE TO ALERT THIS NURSE WHEN SHE IS IN NEED OF USING BATHROOM. PT HAS NOT HAD BOWEL MOVEMENT OVERNIGHT. PT HAS BEEN ABLE TO REST COMFORTABLY IN ROOM FOR MOST OF NIGHT. CALL LIGHT WITHIN REACH. WILL CONTINUE TO MONITOR UNTIL REPORT PASSED TO DAY SHIFT TEAM.
--- NOTE | 2024-11-14 11:47 | NUR ---
REASSESSMENT PT REMAINS ALERT AND ORIENTED. SHE IS ON 3L/NC. DR. ALVES REMOVED THE THORAVENT AT 0930 AND PT'S BREATHING HAS REMAINED UNCHANGED. SHE DENIES ANY SHORTNESS OF BREATH. LUNGS ARE STILL CLEAR, BUT DIM ON THE R SIDE. LOWER R LATERAL CHEST TUBE REMAINS IN PPLACE WITH SS DRAINAGE. REMAINS IN AFIB, RATE IN THE 90S, MAP ABOVE 65. GETTING UP TO THE COMMODE AND SITTING IN THE CHAIR NOW FOR LUNCH. SPOKE WITH PT'S VIA PHONE AND PROVIDED UPDATED.
--- NOTE | 2024-11-14 17:10 | NUR ---
SHIFT SUMMARY PT HAS CONTINUED TO MAINTAIN SPO2 ABOVE 90% ON HER HOME 3L/NC. R LATERAL CHEST TUBE CONTINUES TO HAVE SS DRAINAGE. SOME TENDERNESS AROUND THE SITE THAT WAS CONTROLLED WITH PO PAIN MEDICATION. NO CREPITUS OR AIR LEAK. LUNGS ARE CLEAR, BUT DIM. REMAINS IN AFIB, RATE IN THE 90S, MAP ABOVE 65. EATING MORE THAN 50% OF MEALS. SPENT THE AFTERNOON UP IN THE CHAIR. SPOKE WITH PT'S BROTHER IN [place] AND PROVIDED UPDATE. ALSO UPDATED PT'S WHEN HE VISITED THIS AFTERNOON.
[2024-11-15 03:26] VITALS: BP 111/65
[2024-11-15 03:37] LABS: BASOPHILS ABSOLUTE AUTO 0.01 K/mm3 (0.00-0.23); BASOPHILS PERCENT AUTO 0 % (0-2); EOSINOPHILS ABSOLUTE AUTO 0.11 K/mm3 (0.00-0.68); EOSINOPHILS PERCENT AUTO 1 % (0-6); Hematocrit 27.4 % (33.0-51.0); Hemoglobin 8.5 g/dL (11.5-16.0); IMMATURE GRAN ABSOLUTE AUTO 0.39 K/mm3 (0.00-0.10); IMMATURE GRAN PERCENT AUTO 4 % (0-1); LYMPHOCYTES ABSOLUTE AUTO 0.66 K/mm3 (0.84-5.20); LYMPHOCYTES PERCENT AUTO 7 % (21-46); MONOCYTES ABSOLUTE AUTO 1.11 K/mm3 (0.16-1.47); MONOCYTES PERCENT AUTO 11 % (4-13); Mean Corpuscular HGB Conc 31.0 g/dL (31.5-36.5); Mean Corpuscular Volume 103 fL (80-100); NEUTROPHILS ABSOLUTE AUTO 7.72 K/mm3 (1.96-9.15); NEUTROPHILS PERCENT AUTO 77 % (41-73); NRBC ABSOLUTE 0.00 K/mm3 (0.00-0.02); NRBC Auto 0.0 /100 WBC (0.0-0.2); Platelet Count 160 K/mm3 (150-400); RDW Coefficient Variation 14.0 % (11.7-14.2); RDW Standard Deviation 52.7 fL (35.1-46.3)
[2024-11-15 04:01] LABS: Albumin, Blood 2.9 g/dL (3.4-5.0); Anion Gap 7 mmol/L (3-11); Blood Urea Nitrogen 32 mg/dL (8-24); CO2, Blood 35 mmol/L (21-32); Calcium, Blood 8.5 mg/dL (8.5-10.1); Chloride, Blood 101 mmol/L (98-108); Creatinine, Blood 0.95 mg/dL (0.40-1.00); Glucose, Blood 104 mg/dL (70-99); Phosphorus, Blood 3.9 mg/dL (2.5-4.9); Potassium, Blood 3.6 mmol/L (3.5-5.5); Sodium, Blood 139 mmol/L (136-145)
--- NOTE | 2024-11-15 05:21 | NUR ---
SHIFT SUMMARY: PT A/OX4 AND PLEASANT W/CARE. VSS, SPO2>95% ON 3L NC. MONITOR SHOWS AFIB RATE 80-90s W/REST, 120-130s W/EXERTION. PRIOR THORAVENT CT SITE DRESSING C/D/I. LATERAL CT IN PLACE DRAINING SEROSANGENOUS FLUID, 110 ML OUT THIS SHIFT, DRESSING C/D/I, NO SIGNS OF CREPITUS. PT DOES COMPLAIN OF PAIN AROUND CT SITE, MEDICATED PER EMAR . PT ABLE TO USE BS SBA. WILL REPORT TO ONCOMING RN.
[2024-11-15 08:13] VITALS: BP 127/64
[2024-11-15] MEDS ORDERED: Torsemide 20 MG TAB PO SCH (09:00)
[2024-11-15 11:44] VITALS: BP 111/87
--- NOTE | 2024-11-15 11:45 | NUR ---
REASSESSMENT PT HAS BEEN SITTING UP IN THE CHAIR THIS MORNING. DR. RUSHING CLAMPED HER CHEST TUBE WHEN HE ROUNDED ON HER THIS MORNING. PT DENIES ANY INCREASE IN SHORTNESS OF BREATH, CONTINUES WITH SPO2 IN THE HIGH 90S ON 3L/NC. LUNGS CLEAR, BUT DIM. REMAINS IN AFIV WITH RATE IN THE 80-90S, MAP ABOVE 65. VOIDING USING THE COMMODE. DR. RUSHING CALLED GAVE UPDATE TO PT'S BROTHER IN LAW, POP, PER HER REQUEST.
[2024-11-15 16:09] VITALS: BP 106/74
--- NOTE | 2024-11-15 17:18 | NUR ---
SHIFT SUMMARY PT HAS BEEN AMBULATING INDEPENDENTLY IN THE ROOM SINCE HER CHEST TUBE WAS CLAMPED THIS MORNING. SHE DENIES ANY SHORTNESS OF BREATH. SPO2 REMAINS ABOVE 90 ON HER HOME O2 OF 3L/NC. LUNGS ARE CLEAR, BUT DIM ON THE R SIDE. DR. RUSHING CALLED AND ORDERED A CHEST CT THIS EVENING, WHICH WAS JUST COMPLETED. REMAINS IN AFIB, RATE IN THE 80S AND 90S AT REST, UP TO 120S WITH ACTIVITY, MAP ABOVE 65. EATING MORE THAN 50% OF MEALS, VOIDING IN THE BSC INDEPENDENTLY.
[2024-11-15 20:12] VITALS: BP 111/71
[2024-11-16 04:10] VITALS: BP 111/69
--- NOTE | 2024-11-16 05:01 | NUR ---
SHIFT SUMMARY: NO ACUTE CHANGES T/O THE NIGHT. PT REMAINS A&O X4, ABLE TO MAKE NEEDS KNOWN, AND ABLE TO AMBULATE INDEPENDENTLY AROUND THE ROOM W/SBA FOR CORD MANAGEMENT. PT HAS R CHEST TUBE THAT REMAINS CLAMPED. PT CONTINUES TO REPORT TENDERNESS/PAIN AROUND AREA. REPORTS THAT PRN MEDS ARE EFFECTIVE IN MANAGING PAIN. PT REMAINS ON 3L O2 VIA NC. LUNGS CLEAR/DIM. SATS >95%. SBP STABLE. MAPS>65. HR 70-90S, AFIB. DENIES SOB/CHEST PAIN. ABD SOFT, BT ACTIVE X4. PT USING BEDSIDE COMMODE INDEPENDENTLY. POWERGLIDE REMAINS IN JUAN CARLOS, SALINE LOCKED.CARE CONTINUES. THIS RN TO REPORT TO ONCOMING RN.
[2024-11-16 07:49] VITALS: BP 95/70
[2024-11-16] MEDS ORDERED: METO50 PO (10:20)
[2024-11-16 11:05] VITALS: BP 100/68
--- NOTE | 2024-11-16 12:36 | NUR ---
DISCHARGE/SHIFT SUMMARY PATIENT ALERT AND ORIENTED, ABLE FOLLOW COMMANDS AND MAKE NEEDS KNOWN. VSS, AFIB IN 80'S, HR IN 140'S ON EXERTION, PATIENT ASYMPTOMATIC WITH HR, SPO2 >90% ON 3L VIA NC. CHEST TUBE REMOVED, SITE WITHIN NORMAL LIMITS. EDUCATION PROVIDED PATIENT DENIES N/V/D. PATIENT ABLE TO AMBULATE INDEPEDENTLY IN ROOM. PATIENT AND PROVIDED WITH DISCHARGE EDUCATION, ALL QUESTIONS ANSWERED. HEART MONITOR REMOVED, PATIENT PLACED ON HOME 02 EQUIPMENT. PATIENT EXHIBITING NO SIGNS OF DISTRESS, VSS. PATIENT DISCHARGED UNIT AT 1135 VIA WHEELCHAIR TO VEHICLE.
== END 2024-11-16 11:45 | disposition home or self-care (01) | DRG 208 ==
LOC: ER 18:17 → PCU 21:08 → ICUE 21:08 → PCU 23:40 → ICUE 11-09 06:31
PROVIDERS: Emergency Medicine; Internal Medicine Critical Care Medicine; Student in an Organized Health Care Education/Training Program; ADMIT Internal Medicine
PROC: 3E03329 Introduction of Other Anti-infective into Peripheral Vein, Percutaneous Approach (ICD-10-PCS; 2024-11-05)
PROC: 5A0935A Assistance with Respiratory Ventilation, Less than 24 Consecutive Hours, High Flow/Velocity Cannula (ICD-10-PCS; principal; 2024-11-06)
PROC: 5A09357 Assistance with Respiratory Ventilation, Less than 24 Consecutive Hours, Continuous Positive Airway Pressure (ICD-10-PCS; 2024-11-09)
PROC: 0W9930Z Drainage of Right Pleural Cavity with Drainage Device, Percutaneous Approach (ICD-10-PCS; 2024-11-09)
PROC: 0DH67UZ Insertion of Feeding Device into Stomach, Via Natural or Artificial Opening (ICD-10-PCS; 2024-11-09)
PROC: 0BH17EZ Insertion of Endotracheal Airway into Trachea, Via Natural or Artificial Opening (ICD-10-PCS; 2024-11-09)
PROC: 5A1935Z Respiratory Ventilation, Less than 24 Consecutive Hours (ICD-10-PCS; 2024-11-10)
PROC: 3E033XZ Introduction of Vasopressor into Peripheral Vein, Percutaneous Approach (ICD-10-PCS; 2024-11-10)
PROC: 02HV33Z Insertion of Infusion Device into Superior Vena Cava, Percutaneous Approach (ICD-10-PCS; 2024-11-10)
DX: J96.21 Acute and chronic respiratory failure with hypoxia (principal); G93.41 Metabolic encephalopathy; J93.9 Pneumothorax, unspecified; J44.1 Chronic obstructive pulmonary disease with (acute) exacerbation; I48.20 Chronic atrial fibrillation, unspecified; J90 Pleural effusion, not elsewhere classified; N17.9 Acute kidney failure, unspecified; C34.31 Malignant neoplasm of lower lobe, right bronchus or lung; I13.0 Hypertensive heart and chronic kidney disease with heart failure and stage 1 through stage 4 chronic kidney disease, or unspecified chronic kidney disease; Z66 Do not resuscitate; Z99.81 Dependence on supplemental oxygen; J96.22 Acute and chronic respiratory failure with hypercapnia; J43.9 Emphysema, unspecified; I25.2 Old myocardial infarction; I25.10 Atherosclerotic heart disease of native coronary artery without angina pectoris; E78.5 Hyperlipidemia, unspecified; F12.90 Cannabis use, unspecified, uncomplicated; D72.829 Elevated white blood cell count, unspecified; T38.0X5A Adverse effect of glucocorticoids and synthetic analogues, initial encounter; I95.9 Hypotension, unspecified; K21.9 Gastro-esophageal reflux disease without esophagitis; I50.9 Heart failure, unspecified; N18.31 Chronic kidney disease, stage 3a; Z85.118 Personal history of other malignant neoplasm of bronchus and lung; Z87.01 Personal history of pneumonia (recurrent); Z87.891 Personal history of nicotine dependence; Z88.1 Allergy status to other antibiotic agents; Z79.01 Long term (current) use of anticoagulants; Z79.899 Other long term (current) drug therapy
CPT/HCPCS: 31500; 31720; 32551; 36415; 36556; 51702; 71045; 71046; 71250; 80048; 80053; 80069; 82803; 83615; 83735; 83880; 84100; 84145; 84157; 84484; 85025; 87070; 87075; 87205; 88108; 88305; 89051; 93005; 93010; 94002; 94003; 94640; 94660; 94664; 94762; 96374; 97110; 97162; 97165; 97530; 97535; 99285-25; A9270; C1751; J0456; J0696; J1160; J2060; J2250; J2312; J2405; J2470; J2704; J2765; J2919; J3010; J7030; J7050; J7120

== ENCOUNTER 2025-01-08 11:08 | Inpatient (IN) | payer MEDICARE, OTHER ==
[2025-01-08] VITALS (23 sets, daily range): BP systolic 80–169; BP diastolic 59–118
[~2025-01-08] VITALS: Ht 165.1 cm; Wt 89.2 kg
[~2025-01-08 11:08] MED LIST changes: -Etomidate 2MG / ML 10ML Vial XX ONE; +FISH OIL 1,0001 EA10 PO; +Ginseng100 MG PO; -Midazolam HCl 1MG / ML 2ML Vial IV ONE; -Rocuronium Bromide 10 MG/ML 5ML Injection IV ONE
[2025-01-08 11:12] LABS: pH Blood Venous 7.30 (7.34-7.37)
[2025-01-08 11:23] LABS: BASOPHILS ABSOLUTE AUTO 0.07 K/mm3 (0.00-0.23); BASOPHILS PERCENT AUTO 1 % (0-2); EOSINOPHILS ABSOLUTE AUTO 0.01 K/mm3 (0.00-0.68); EOSINOPHILS PERCENT AUTO 0 % (0-6); Hematocrit 30.4 % (33.0-51.0); Hemoglobin 8.6 g/dL (11.5-16.0); IMMATURE GRAN ABSOLUTE AUTO 0.38 K/mm3 (0.00-0.10); IMMATURE GRAN PERCENT AUTO 4 % (0-1); LYMPHOCYTES ABSOLUTE AUTO 0.61 K/mm3 (0.84-5.20); LYMPHOCYTES PERCENT AUTO 6 % (21-46); MONOCYTES ABSOLUTE AUTO 0.76 K/mm3 (0.16-1.47); MONOCYTES PERCENT AUTO 8 % (4-13); Mean Corpuscular HGB Conc 28.3 g/dL (31.5-36.5); Mean Corpuscular Volume 109 fL (80-100); NEUTROPHILS ABSOLUTE AUTO 7.73 K/mm3 (1.96-9.15); NEUTROPHILS PERCENT AUTO 81 % (41-73); NRBC ABSOLUTE 0.05 K/mm3 (0.00-0.02); NRBC Auto 0.5 /100 WBC (0.0-0.2); Platelet Count 154 K/mm3 (150-400); RDW Coefficient Variation 13.9 % (11.7-14.2); RDW Standard Deviation 55.4 fL (35.1-46.3)
--- NOTE | 2025-01-08 11:27 | NUR ---
REQUET TO LOOK FOR POLST, NONE ON FILE THAT THIS PCRN COULD LOCATE
[2025-01-08] MEDS ORDERED: Naloxone HCl 0.4MG / ML 1ML Vial IV ONE ×2 (11:40→13:20)
[2025-01-08 11:45] LABS: Alanine Aminotransfer (ALT/SGP 19.0 U/L (12-78); Albumin, Blood 3.9 g/dL (3.4-5.0); Albumin/Globulin Ratio 1.3 (0.8-1.8); Anion Gap 6.0 mmol/L (3-11); Aspartate Aminotrans (AST/SGOT 21.0 U/L (12-37); Bilirubin, Total 2.8 mg/dL (0.1-1.0); Blood Urea Nitrogen 40.0 mg/dL (8-24); CO2, Blood 42.0 mmol/L (21-32); Calcium, Blood 9.7 mg/dL (8.5-10.1); Chloride, Blood 96.0 mmol/L (98-108); Creatinine, Blood 1.17 mg/dL (0.40-1.00); Globulin, Blood 3.1 g/dL (2.2-4.0); Glucose, Blood 112.0 mg/dL (70-99); Potassium, Blood 5.2 mmol/L (3.5-5.5); Sodium, Blood 139.0 mmol/L (136-145); Total Protein, Blood 7.0 g/dL (6.4-8.2)
[2025-01-08 12:15] LABS: pH Blood Arterial 7.15 (7.35-7.45)
[2025-01-08 13:25] LABS: pH Blood Arterial 7.14 (7.35-7.45)
[2025-01-08] MEDS ORDERED: FLU VACC TS2025(65UP)/MF59C/PF 45 MCG/0.5 ML SYRINGE IM SCH (13:40)
[2025-01-08] MEDS ORDERED: Ondansetron HCl 2 MG / ML 2ML Vial IV PRN (13:40)
[2025-01-08] MEDS ORDERED: Vancomycin (Pharmacy Consult) IV SCH (13:50)
[2025-01-08] MEDS ORDERED: Vancomycin HCL 2,500 MG in NS 500 ML IV ONE (14:00)
[2025-01-08] MEDS ORDERED: Metoprolol Tartrate 1 MG/ML 5 ML VIAL IV ONE (14:00)
[2025-01-08 14:08] LABS: pH Blood Venous 7.37 (7.34-7.37)
[2025-01-08] MEDS ORDERED: CefTRIAXone Sodium 1,000 MG in NS 100 ML IV SCH (14:21)
[2025-01-08] MEDS ORDERED: Diltiazem HCl 5 MG / ML 5ML Vial IV ONE (14:30)
--- NOTE | 2025-01-08 14:47 | NUR ---
ROUNDED ON PT IN ED. SHE WAS HAVING DIFFICULTY REGULATING HER RESPIRATIONS. PATIENT HAS HER EYES OPEN BUT IN UNABLE TO ENGAGE IN MEANINGFUL CONVERSATION DUE TO HER RESP DISTRESS. DISCUSSION OF INTUBATION. PER PROVIDER GAVE VERBAL CONSENT OVER THE PHONE TO INTUBATE IF NECESSARY, PROVIDER IS CONCERNED THAT IS NOT FULLY GRASPING THE SEVARITY OF THE PATIENTS CONDITION. CALL PLACED TO PATRICIA AT [phone]. EXPRESSED MY CONCERN FOR THE PATIENTS CURRENT STATUS. EXPRESSED UNDERSTANDING OF HOW FRAGILE SHE CURRENTLY IS AND RELAYED THAT HE WOULD COME IN IF HE WERE ABLE TO. ROUNDED ON PATIENT ONCE SHE WAS IN THE ICU. SHE HAD SOMEWHAT STABALIZED AT THIS POINT AND IS NOT REQUIRING INTUBATION. DISCUSSED CASE WITH PULMONOLOGY AND PROVIDER
[2025-01-08 14:51] LABS: Source, Urine Clean Catch
[2025-01-08 15:05] LABS: Bilirubin, Urine Neg (Neg); Color, Urine Yellow (P-Yellow); Glucose Qualitative, Urine Neg (Neg); Ketones, Urine Neg (Neg); Leukocyte Esterase, Urine 1+ (Neg); Protein, Urine 3+ (Neg); Specific Gravity, Urine 1.025 (1.003-1.022); Urobilinogen, Urine NORM (Normal)
[2025-01-08 15:22] LABS: U Amphetamine Screen Not Detected; U Barbiturate Screen Not Detected; U Benzodiazapine Screen Not Detected; U Buprenorphine Screen Not Detected; U Cannabinoids Screen DETECTED; U Cocaine Screen Not Detected; U Methadone Screen Not Detected; U Methamphetamine Screen Not Detected; U Opiates Screen Not Detected; U Oxycodone Screen Not Detected; U Phencyclidine Screen Not Detected
[2025-01-08 15:41] LABS: Red Blood Cells, Urine 0-2 /hpf (0-2)
--- NOTE | 2025-01-08 18:11 | NUR ---
SHIFT SUMMARY PT TRANSFERRED FROM ED TO ICU 4 AT 1415. PT AWAKE, TRACKING, FOLLOWS SOME COMMANDS, BUT CONFUSED AND NOT ANSWERING QUESTIONS APPROPRIATELY. PT HAS FLIGHTS OF IDEAS AND PULLS AT LINES. PT IS ON BIPAP, 20/8/50% WITH SPO2 >88%. PT TACHYPNEIC WITH SHALLOW BREATHS. LUNG SOUNDS DIMINISHED T/O. PT IS IN AFIB, HR IN 120-150S, MAP >65. PT IS SHAKING SEVERELY AND DIFFICULT TO GET AN ACCURATE MEASUREMENT ON HR AND BP. PT HAS DILLON CATH IN PLACE, PATENT AND DRAINING TO GRAVITY WITH >700MLS IN OUTPUT SINCE 1415. PT HAS +1 EDEMA IN BLE. PT HAS SCATTERED BRUISING IN ALL EXTREMITIES AND LEFT HIP/THIGH. PT HAS PIV RHA AND LFA. LFA DRAWS BACK. PT HAS PRECEDEX RUNNING AT 0.6. CALL LIGHT WITHIN REACH WITH NO NEEDS EXPRESSED AT THIS TIME. .
[2025-01-08 20:15] LABS: pH Blood Venous 7.41 (7.34-7.37)
[2025-01-08 20:48] LABS: Magnesium, Blood 2.1 mg/dL (1.6-2.4); Phosphorus, Blood 5.0 mg/dL (2.5-4.9)
[2025-01-08 21:15] LABS: Influenza A/2009-H1 Not Detected (NOT DETECT); SARS-Cov-2 (COVID-19), BioFire Not Detected (NOT DETECT)
[2025-01-09] VITALS (56 sets, daily range): BP systolic 92–128; BP diastolic 50–110
[2025-01-09] MEDS ORDERED: LORazepam 2 MG/ML 1ML Injection IV ONE (01:10)
[2025-01-09 03:39] LABS: BASOPHILS ABSOLUTE AUTO 0.01 K/mm3 (0.00-0.23); BASOPHILS PERCENT AUTO 0 % (0-2); EOSINOPHILS ABSOLUTE AUTO 0.00 K/mm3 (0.00-0.68); EOSINOPHILS PERCENT AUTO 0 % (0-6); Hematocrit 26.0 % (33.0-51.0); Hemoglobin 7.8 g/dL (11.5-16.0); IMMATURE GRAN ABSOLUTE AUTO 0.03 K/mm3 (0.00-0.10); IMMATURE GRAN PERCENT AUTO 1 % (0-1); LYMPHOCYTES ABSOLUTE AUTO 0.17 K/mm3 (0.84-5.20); LYMPHOCYTES PERCENT AUTO 4 % (21-46); MONOCYTES ABSOLUTE AUTO 0.05 K/mm3 (0.16-1.47); MONOCYTES PERCENT AUTO 1 % (4-13); Mean Corpuscular HGB Conc 30.0 g/dL (31.5-36.5); Mean Corpuscular Volume 106 fL (80-100); NEUTROPHILS ABSOLUTE AUTO 3.94 K/mm3 (1.96-9.15); NEUTROPHILS PERCENT AUTO 94 % (41-73); NRBC ABSOLUTE 0.02 K/mm3 (0.00-0.02); NRBC Auto 0.5 /100 WBC (0.0-0.2); Platelet Count 103 K/mm3 (150-400); RDW Coefficient Variation 13.6 % (11.7-14.2); RDW Standard Deviation 51.8 fL (35.1-46.3)
[2025-01-09 03:48] LABS: Alanine Aminotransfer (ALT/SGP 16.0 U/L (12-78); Albumin, Blood 3.5 g/dL (3.4-5.0); Albumin/Globulin Ratio 1.3 (0.8-1.8); Anion Gap 7.0 mmol/L (3-11); Aspartate Aminotrans (AST/SGOT 11.0 U/L (12-37); Bilirubin, Total 2.0 mg/dL (0.1-1.0); Blood Urea Nitrogen 51.0 mg/dL (8-24); CO2, Blood 40.0 mmol/L (21-32); Calcium, Blood 9.5 mg/dL (8.5-10.1); Chloride, Blood 96.0 mmol/L (98-108); Creatinine, Blood 1.31 mg/dL (0.40-1.00); Globulin, Blood 2.6 g/dL (2.2-4.0); Glucose, Blood 141.0 mg/dL (70-99); Potassium, Blood 4.9 mmol/L (3.5-5.5); Sodium, Blood 138.0 mmol/L (136-145); Total Protein, Blood 6.1 g/dL (6.4-8.2)
[2025-01-09] MEDS ORDERED: Albuterol 2.5 MG/3 ML VIAL INH PRN (03:50)
--- NOTE | 2025-01-09 06:14 | NUR ---
SHIFT SUMMARY PT VERY RESTLESS/AGITATED EARLIER IN NIGHT ON BIPAP, TRYING TO TAKE MASK OFF, INTERMITT CONFUSED, NOT REDIRECTABLE, REQUIRING PRECEDEX TITRATION TO 1.4 MCG AND A 1 TIME DOSE OF ATIVAN. CALM AND COMPLIANT WITH BIPAP AFTER INTERVENTIONS, RESTING WITHOUT AGITATION AT THIS TIME. VS REMAINED STABLE, O2 SAT >92% ON 40% FIO2. AFEBRILE. WILL UPDATE DAY RN WITH ALL OUTSTANDING ISSUES AND PROBLEMS TO DATE.
--- NOTE | 2025-01-09 07:38 | NUR ---
ASSUMPTION OF CARE ASSUMED CARE OF PATIENT AT APPROX 0700. PATIENT ON BIPAP 20/8 40% FIO2 WITH SPO2 >95%. PATIENT ON PRECEDEX GTT PER EMAR. SEE FLOWSHEET FOR TITRATIONS. PATIENT RASS -2. HR AFIB IN THE 100S-110S. BP STABLE WITH MAPS >65. TEMP DILLON PATENT AND DRAINING YELLOW URINE TO GRAVITY. IV TO LEFT FA PATENT. IV TO RIGHT HAND PATENT AND SALINE LOCKED. BED IN LOWEST POSITION. CALL LIGHT IN REACH.
[2025-01-09] MEDS ORDERED: Enoxaparin 40 MG/0.4 ML SYR SC SCH (09:00)
[2025-01-09] MEDS ORDERED: Enoxaparin 60 MG/0.6 ML SYR SC ONE (09:45)
--- NOTE | 2025-01-09 10:30 | NUR ---
SPOKE WITH PATIENT ON THE PHONE THIS MORNING. ROUNDED ON PT SHE WAS ALERT AND CONFUSED SHE WANTED THE MASK OFF AND SHE WANTED TO TALK TO HER . CALL PLACED TO HER . SHE WAS UNCLEAR WHERE SHE WAS AT AND WANTED HIM TO COME.
[2025-01-09] MEDS ORDERED: Ipratropium/Albuterol SulF 2.5-0.5MG/3 ML Amp INH SCH (11:20)
--- NOTE | 2025-01-09 17:11 | NUR ---
SHIFT SUMMARY PATIENT ALERT AND ORIENTED TO SELF AND . ORIENTATION TO STAFF, TIME AND PLACE HAS VARRIED THROUGHOUT THE SHIFT. PATIENT IS MUCH MORE ORIENTED THIS EVENING, HAS BEEN COOPERATIVE WITH CARE, AND IS ABLE TO MAKE NEEDS KNOWN. PATIENT HAS BEEN ON AND OFF THE BIPAP THROUGHOUT THE DAY AND TOLERATES SHORT PERIODS ON 2-3L O2 VIA NC. BIPAP SETTINGS APAP WITH TARGET VOLUME OF 400MLS. PATIENT HAD ONE EPISODE OF UNRESPONSIVENESS AT APPROX 1200 AND WAS PUT BACK ONTO THE BIPAP AT THAT TIME. PATIENT IS CURRENTLY ON 2L02 VIA NC WITH SPO2 >92% WITH NO COMPLAINTS OF SOB. HR IS AFIB IN THE 100S-130S. BP STABLE WITH MAPS >65. IVS PATENT AND SALINE LOCKED. TEMP DILLON PATENT AND DRAINING YELLOW URINE TO GRAVITY. NO BM THIS SHIFT. PATIENT IS TOLERATING SOFT BITE DIET DURING BREAKS FROM THE BIPAP. PATIENT , PATRICIA, WAS AT BEDSIDE AND UPDATED ON PLAN OF CARE. BED IN LOWEST POSITION. CALL LIGHT IN REACH.
--- NOTE | 2025-01-09 17:43 | NUR ---
PROVIDER CONTACT DR DENIS CONTACTED ABOUT PATIENTS HR TRENDING BACK UP IN THE 120S-160S. PROVIDER ASKED THIS RN TO GIVE 2100 DOSE OF METOPROLOL NOW.
--- NOTE | 2025-01-09 19:45 | NUR ---
RN DISCUSSION W/PATIENT: WHILE ASSESSING PT, PT FOUND TO BE A&O X4 W/INTERMITTENT MOMENTS OF FORGETFULNESS. SEE ASSESSMENT.PT ANSWERING QUESTIONS APPROPRIATELY AND PARTICIPATING IN CARE. PT DENIES PAIN OR SOB. THIS RN DISCUSSED PLAN OF CARE W/PT TO WEAR BIPAP TONIGHT. PT ADAMANTLY REFUSING BIPAP, STATING "I DO NOT WANT THAT THING ON." THIS RN EDUCATED ON BIPAP USE, PROS OF WEARING BIPAP AND POTENTIAL ADVERSE EFFECTS OF NOT WEARING IT. PT STATED,"I UNDERSTAND ALL OF THAT BUT I DO NOT WANT TO WEAR IT." THIS RN DISCUSSED PT RIGHTS W/PT AND ASKED/DISCUSSED W/PT THAT IF SHE STARTED HAVING DIFFICULTY BREATHING/ OR HAD A CHANGE IN MENTATION, THAT BIPAP WOULD BE COURSE OF TX W/POSS INTUBATION IF THE SITUATION CALLED FOR IT. PT VERBALIZED THAT IF SHE STARTS TO HAVE DIFFICULTY BREATHING/EXPERIENCING ANY OF THOSE MENTIONED SXS, SHE WOULD WEAR BIPAP AT THAT TIME.
[2025-01-09] MEDS ORDERED: Enoxaparin 100 MG/ML 1ML SYR SC SCH (21:00)
[2025-01-10] VITALS (53 sets, daily range): BP systolic 88–150; BP diastolic 57–114
[2025-01-10 03:22] LABS: BASOPHILS ABSOLUTE AUTO 0.00 K/mm3 (0.00-0.23); BASOPHILS PERCENT AUTO 0 % (0-2); EOSINOPHILS ABSOLUTE AUTO 0.00 K/mm3 (0.00-0.68); EOSINOPHILS PERCENT AUTO 0 % (0-6); Hematocrit 24.6 % (33.0-51.0); Hemoglobin 7.3 g/dL (11.5-16.0); IMMATURE GRAN ABSOLUTE AUTO 0.02 K/mm3 (0.00-0.10); IMMATURE GRAN PERCENT AUTO 0 % (0-1); LYMPHOCYTES ABSOLUTE AUTO 0.17 K/mm3 (0.84-5.20); LYMPHOCYTES PERCENT AUTO 3 % (21-46); MONOCYTES ABSOLUTE AUTO 0.16 K/mm3 (0.16-1.47); MONOCYTES PERCENT AUTO 2 % (4-13); Mean Corpuscular HGB Conc 29.7 g/dL (31.5-36.5); Mean Corpuscular Volume 104 fL (80-100); NEUTROPHILS ABSOLUTE AUTO 6.31 K/mm3 (1.96-9.15); NEUTROPHILS PERCENT AUTO 95 % (41-73); NRBC ABSOLUTE 0.03 K/mm3 (0.00-0.02); NRBC Auto 0.5 /100 WBC (0.0-0.2); Platelet Count 121 K/mm3 (150-400); RDW Coefficient Variation 14.3 % (11.7-14.2); RDW Standard Deviation 54.0 fL (35.1-46.3)
[2025-01-10 03:37] LABS: Anion Gap 6.0 mmol/L (3-11); Blood Urea Nitrogen 66.0 mg/dL (8-24); CO2, Blood 42.0 mmol/L (21-32); Calcium, Blood 8.8 mg/dL (8.5-10.1); Chloride, Blood 95.0 mmol/L (98-108); Creatinine, Blood 1.33 mg/dL (0.40-1.00); Glucose, Blood 181.0 mg/dL (70-99); Potassium, Blood 4.0 mmol/L (3.5-5.5); Sodium, Blood 139.0 mmol/L (136-145)
[2025-01-10] MEDS ORDERED: Metoprolol Tartrate 1 MG/ML 5 ML VIAL IV ONE (04:30)
[2025-01-10 04:47] LABS: Magnesium, Blood 2.2 mg/dL (1.6-2.4)
[2025-01-10] MEDS ORDERED: Amiodarone HCl 150 MG in NS 100 ML IV ONE (05:40)
[2025-01-10] MEDS ORDERED: Amiodarone HCl 450 MG in NS 250 ML IV SCH (06:30)
--- NOTE | 2025-01-10 06:38 | NUR ---
SHIFT SUMMARY: PT IS A&O X4 W/INTERMITTENT FORGETFULNESS/CONFUSION. PT SLEPT ON AND OFF THROUGHOUT THE NIGHT, DID NOT HAVE ANY NIGHTMARES, PREVIOUS NIGHT. PT REFUSED TO WEAR BIPAP T/O THE NIGHT DESPITE ENCOURAGEMENT FROM THIS RN AND RT. PT REMAINS ON 2L O2 VIA NC. SATS >93%. PT DENIES PAIN OR SOB. SBP STABLE, MAP >65. HR AFIB 110S-140S. PT HAD INCREASE IN HR 120S-160S, THIS MORNING. HOSPITALIST CALLED. ORDER FOR METOPROLOL OBTAINED AND ADMINISTERED, SEE EMAR. PTS HR UNCHANGED DESPITE INTERVENTION. HOSPITALIST CALLED AND ORDERS FOR AMIODORONE AND EKG OBTAINED. INTERVENTIONS IMPLEMENTED. AMIODORONE GTT TO BE STARTED. PT HAD BM THIS SHIFT-USED BEDSIDE COMMODE W/ 2-RN ASSIST. TEMP DILLON REMAINS PATENT, DRAINING TO GRAVITY. PIV TO LFA. CARE CONTINUES. THIS RN TO REPORT TO ONCOMING RN.
--- NOTE | 2025-01-10 08:51 | NUR ---
ASSUMPTION OF CARE ASSUMED CARE OF PATIENT AT APPROX 0700. PATIENT A&OX4 AND ABLE TO MAKE NEEDS KNOWN. NO FOCAL DEFICITS. HR AFIB IN THE 130S-160S. NEW IV TO R WRIST PATENT WITH AMIO GTT RUNNING PER EMAR. BP STABLE WITH MAPS >65. PATIENT ON 3L O2 VIA NC WITH SPO2 >92%. TEMP DILLON PATENT AND DRAINING YELLOW URINE TO GRAVITY. PATIENT IS BEING COOPERATIVE WITH CARE AT THIS TIME. BED IN LOWEST POSITION. CALL LIGHT IN REACH.
[2025-01-10] MEDS ORDERED: Albuterol HFA200 ACT/6.7 GM INH INH PRN (10:05)
[2025-01-10 11:59] LABS: Hematocrit 25.8 % (33.0-51.0); Hemoglobin 7.7 g/dL (11.5-16.0); Mean Corpuscular HGB Conc 29.8 g/dL (31.5-36.5); Mean Corpuscular Volume 105 fL (80-100); NRBC ABSOLUTE 0.07 K/mm3 (0.00-0.02); NRBC Auto 0.6 /100 WBC (0.0-0.2); Platelet Count 142 K/mm3 (150-400); RDW Coefficient Variation 14.5 % (11.7-14.2); RDW Standard Deviation 55.7 fL (35.1-46.3)
[2025-01-10 16:01] LABS: pH Blood Venous 7.36 (7.34-7.37)
--- NOTE | 2025-01-10 16:35 | NUR ---
SHIFT SUMMARY PATIENT ALERT AND ORIENTED TO SELF, PLACE, AND DATE, BUT HAS SOME INTERMITTENT CONFUSION ABOUT WHAT IS GOING ON. PATIENT ON 3L O2 VIA NC WITH SPO2 >92%. PATIENT REFUSES TO WEAR THE BIPAP EVEN AFTER EDUCATION ABOUT HER CO2 LEVEL FROM THE PROVIDER AND THIS RN. HR AFIB IN THE 110S-120S. IV TO RIGHT WRIST PATENT AND INFUSING AMIODARONE GTT PER EMAR. SEE FLOWSHEET FOR TITRATIONS. IV TO LEFT AC PATENT AND SALINE LOCKED. BP STABLE WITH MAPS >65. PATIENT HAD BM X1 THIS SHIFT [place] [facility] [place] AND [place]WW. TEMP DILLON REMOVED AT 1000. PATIENT HAS NOT VOIDED. BLADDER SCAN OF 374, PATIENT DOES NOT FEEL LIKE SHE HAS TO VOID. , PATRICIA, CALLED AND UPDATED ON PLAN OF CARE. BED IN LOWEST POSITION, ALARM ON. CALL LIGHT IN REACH.
[2025-01-11] VITALS (60 sets, daily range): BP systolic 101–147; BP diastolic 58–116
--- NOTE | 2025-01-11 05:38 | NUR ---
SHIFT SUMMARY PT HAS TOLERATED NIGHT WELL WITH NO SIGNIFICANT EVENTS OR CHANGES IN STATUS. PT HAS BEEN ABLE TO REMAIN ON BIPAP FOR MOST OF SHIFT, PT ASKED TO TAKE BIPAP OFF AT 0530 AND REMAINS OFF AT THIS TIME. PT HAS BEEN CALL LIGHT APPROPRIATE AND STANDS AND PIVOTS TO BEDSIDE COMMODE WITHOUT ISSUE. PT STATES NO COMPLAINTS OF PAIN AT THIS TIME. CALL LIGHT WITHIN REACH. WILL CONTINUE TO MONITOR UNTIL REPORT PASSED TO DAY SHIFT TEAM.
[2025-01-11 06:27] LABS: BASOPHILS ABSOLUTE AUTO 0.00 K/mm3 (0.00-0.23); BASOPHILS PERCENT AUTO 0 % (0-2); EOSINOPHILS ABSOLUTE AUTO 0.00 K/mm3 (0.00-0.68); EOSINOPHILS PERCENT AUTO 0 % (0-6); Hematocrit 25.6 % (33.0-51.0); Hemoglobin 7.6 g/dL (11.5-16.0); IMMATURE GRAN ABSOLUTE AUTO 0.05 K/mm3 (0.00-0.10); IMMATURE GRAN PERCENT AUTO 1 % (0-1); LYMPHOCYTES ABSOLUTE AUTO 0.13 K/mm3 (0.84-5.20); LYMPHOCYTES PERCENT AUTO 2 % (21-46); MONOCYTES ABSOLUTE AUTO 0.17 K/mm3 (0.16-1.47); MONOCYTES PERCENT AUTO 3 % (4-13); Mean Corpuscular HGB Conc 29.7 g/dL (31.5-36.5); Mean Corpuscular Volume 106 fL (80-100); NEUTROPHILS ABSOLUTE AUTO 6.35 K/mm3 (1.96-9.15); NEUTROPHILS PERCENT AUTO 95 % (41-73); NRBC ABSOLUTE 0.02 K/mm3 (0.00-0.02); NRBC Auto 0.3 /100 WBC (0.0-0.2); Platelet Count 106 K/mm3 (150-400); RDW Coefficient Variation 14.3 % (11.7-14.2); RDW Standard Deviation 55.4 fL (35.1-46.3)
[2025-01-11 06:46] LABS: Anion Gap 6.0 mmol/L (3-11); Blood Urea Nitrogen 58.0 mg/dL (8-24); CO2, Blood 43.0 mmol/L (21-32); Calcium, Blood 8.9 mg/dL (8.5-10.1); Chloride, Blood 95.0 mmol/L (98-108); Creatinine, Blood 1.3 mg/dL (0.40-1.00); Glucose, Blood 152.0 mg/dL (70-99); Potassium, Blood 3.8 mmol/L (3.5-5.5); Sodium, Blood 140.0 mmol/L (136-145)
--- NOTE | 2025-01-11 08:00 | NUR ---
ASSUMPTION OF CARE RECEIVED REPORT FROM [facility] NURSE. PT A&0X4, FOLLOWS COMMANDS AND USES CALL LIGHT APPROPRIATELY. PT IS ON 3L NC, TOLERATING WELL DENIES SOB. PT WILL NOTIFY IF SOB AND REQUESTS BIPAP. DIMINISHED LUNG SOUNDS IN RLL AND RUL. CLEAR LUNG SOUNDS IN LLL AND JESSICA. PT DENIES ABD PAIN. PT AMBULATES TO BSC TO VOID, TOLERATES WELL. PT IN AFIB, HR IN 110-120S. MAP >65. SBP <140. PT DENIES CHEST PAIN. PT IS ANXIOUS AND VERBALIZES HER DESIRE TO LEAVE. CALL LIGHT WITHIN REACH AND NO FURTHER NEEDS EXPRESSED AT THIS TIME.
--- NOTE | 2025-01-11 16:30 | NUR ---
DR WADDELL NOTIFIED PT HR SUSTAINED 120-130S AND INCREASED TO 140-150S WITH ACTIIVTY. NO NEW ORDERS RECEIVED. PT REMAINS IN AFIB. SHE IS ASYMPTOMATIC
--- NOTE | 2025-01-11 17:57 | NUR ---
NOTIFIED DR ALBARRAN ACCOUNTING MACHINE OPERATOR FOR ORTHO THAT CT RESULTS AVAILABLE. DR BARNEY RETURNED CALL AND I RELAYED THE CURRENT READ. PER DR BARNEY PLAN FOR CONSERVATIVE MANAGEMENT IF NO DISPLACEMENT VISIBLE.
--- NOTE | 2025-01-11 18:50 | NUR ---
SHIFT SUMMARY PT A&OX4 CALL LIGHT WITHIN REACH. PT ON 2L NC, SPO2>92%. CONSULTED CARE COORDINATION FOR BIPAP AT HOME. HR 110-150S IN AFIB/SINUS ARRYTHMIA. MAP>65. PT AMBULATES TO BSC WITH STANDBY ASSIST. PT DENIES ABD PAIN. BIPAP FOR HOME SET UP FOR PM USE. CALLED FOR TACHYCARDIA, NO FURTHER ORDERS IN PLACE. CALL LIGHT WITHIN REACH WITH NO FURTHER NEEDS EXPRESSED AT THIS TIME.
[2025-01-12] VITALS (16 sets, daily range): BP systolic 113–163; BP diastolic 76–109
--- NOTE | 2025-01-12 06:46 | NUR ---
SHIFT SUMMARY: NO ACUTE CHANGES T/O THE NIGHT. PT REMAINS A&O X4, ABLE TO MAKE NEEDS KNOWN AND FOLLOW COMMANDS. VSS. PT USING HOME UNIT BIPAP SUCCESSFULLY, ABLE TO MANAGE IT INDEPENDENTLY AFTER RT TEACHING. PT DENIED PAIN AND SOB. INTERMITTENTLY TAKING BREAKS FROM BIPAP AND USING 3L 02 VIA NC. SATS>95%. SBP STABLE. MAPS>65. HR REMAINS AFIB, 110S-120S. ABD SOFT, BT ACTIVE X4. PT USING BEDSIDE COMMODE W/MIN SBA. PIV IN BILAT FA, SALINE LOCKED AT THIS TIME. THIS RN TO REPORT TO ONCOMING RN.
[2025-01-12 07:17] LABS: BASOPHILS ABSOLUTE AUTO 0.01 K/mm3 (0.00-0.23); BASOPHILS PERCENT AUTO 0 % (0-2); EOSINOPHILS ABSOLUTE AUTO 0.00 K/mm3 (0.00-0.68); EOSINOPHILS PERCENT AUTO 0 % (0-6); Hematocrit 25.7 % (33.0-51.0); Hemoglobin 7.5 g/dL (11.5-16.0); IMMATURE GRAN ABSOLUTE AUTO 0.08 K/mm3 (0.00-0.10); IMMATURE GRAN PERCENT AUTO 1 % (0-1); LYMPHOCYTES ABSOLUTE AUTO 0.16 K/mm3 (0.84-5.20); LYMPHOCYTES PERCENT AUTO 3 % (21-46); MONOCYTES ABSOLUTE AUTO 0.31 K/mm3 (0.16-1.47); MONOCYTES PERCENT AUTO 5 % (4-13); Mean Corpuscular HGB Conc 29.2 g/dL (31.5-36.5); Mean Corpuscular Volume 105 fL (80-100); NEUTROPHILS ABSOLUTE AUTO 5.62 K/mm3 (1.96-9.15); NEUTROPHILS PERCENT AUTO 91 % (41-73); NRBC ABSOLUTE 0.03 K/mm3 (0.00-0.02); NRBC Auto 0.5 /100 WBC (0.0-0.2); Platelet Count 99 K/mm3 (150-400); RDW Coefficient Variation 14.3 % (11.7-14.2); RDW Standard Deviation 54.4 fL (35.1-46.3)
[2025-01-12 07:31] LABS: Anion Gap 9.0 mmol/L (3-11); Blood Urea Nitrogen 54.0 mg/dL (8-24); CO2, Blood 41.0 mmol/L (21-32); Calcium, Blood 9.0 mg/dL (8.5-10.1); Chloride, Blood 95.0 mmol/L (98-108); Creatinine, Blood 1.23 mg/dL (0.40-1.00); Glucose, Blood 234.0 mg/dL (70-99); Potassium, Blood 3.7 mmol/L (3.5-5.5); Sodium, Blood 141.0 mmol/L (136-145)
[2025-01-12] MEDS ORDERED: CefTRIAXone 1000 MG Vial ONE ×2 (08:24→08:27)
--- NOTE | 2025-01-12 17:29 | NUR ---
SHIFT SUMMARY PT ALERT AND ORIENTED, ABLE TO USE CALL LIGHT APPROPRIATELY AND MAKE NEEDS KNOWN. INDEPENDENT IN ROOM TODAY, PT HAD BM TODAY AND GOOD PO INTAKE T/O SHIFT. PT REMAINS IN AFIB WITH RATES FROM LOW 90S-130S, SATS REMAIN >90% ON 3L NC WHICH IS HER BASELINE. PT EXPRESSES DESIRE TO D/C HOME. DENIES UNMET NEEDS AT THIS TIME, CALL LIGHT WITHIN REACH.
--- NOTE | 2025-01-12 20:31 | NUR ---
TRANSFER NOTE REPORT CALLED TO DEWATERING FILTERING SUPERVISOR FOR TRANSFER. REVIEWED ALL OUTSTANDING ISSUES AND PROBLEMS TO DATE. TRANSFERRED VIA W/C W/TELE AND ALL BELONGINGS TO ROOM U 16.
[2025-01-13] VITALS (7 sets, daily range): BP systolic 106–125; BP diastolic 67–91
--- NOTE | 2025-01-13 04:16 | NUR ---
SHIFT SUMMARY Mayte hammond from ICU. Arrived on 3L NC with sat's >93%. Placed on home CPAP and did have periods of apnea with desaturation to low 80s but recovered with elevated HOB. Afib, HRs labile 80-140s. Elevated with activity, slightly SOB. Able to walk to restroom independently. Good UOP overnight. +1-2 edema in BLE. Plan for home O2 study prior to discharge.
[2025-01-13 05:06] LABS: BASOPHILS ABSOLUTE AUTO 0.01 K/mm3 (0.00-0.23); BASOPHILS PERCENT AUTO 0 % (0-2); EOSINOPHILS ABSOLUTE AUTO 0.00 K/mm3 (0.00-0.68); EOSINOPHILS PERCENT AUTO 0 % (0-6); Hematocrit 25.8 % (33.0-51.0); Hemoglobin 7.6 g/dL (11.5-16.0); IMMATURE GRAN ABSOLUTE AUTO 0.07 K/mm3 (0.00-0.10); IMMATURE GRAN PERCENT AUTO 1 % (0-1); LYMPHOCYTES ABSOLUTE AUTO 0.20 K/mm3 (0.84-5.20); LYMPHOCYTES PERCENT AUTO 3 % (21-46); MONOCYTES ABSOLUTE AUTO 0.90 K/mm3 (0.16-1.47); MONOCYTES PERCENT AUTO 12 % (4-13); Mean Corpuscular HGB Conc 29.5 g/dL (31.5-36.5); Mean Corpuscular Volume 105 fL (80-100); NEUTROPHILS ABSOLUTE AUTO 6.20 K/mm3 (1.96-9.15); NEUTROPHILS PERCENT AUTO 84 % (41-73); NRBC ABSOLUTE 0.04 K/mm3 (0.00-0.02); NRBC Auto 0.5 /100 WBC (0.0-0.2); Platelet Count 97 K/mm3 (150-400); RDW Coefficient Variation 14.4 % (11.7-14.2); RDW Standard Deviation 54.4 fL (35.1-46.3)
[2025-01-13 06:30] LABS: Anion Gap Unable to Calculate mmol/L (3-11); Blood Urea Nitrogen 51 mg/dL (8-24); Calcium, Blood 8.6 mg/dL (8.5-10.1); Chloride, Blood 91 mmol/L (98-108); Creatinine, Blood 1.16 mg/dL (0.40-1.00); Glucose, Blood 125 mg/dL (70-99); Potassium, Blood 3.8 mmol/L (3.5-5.5); Sodium, Blood 139 mmol/L (136-145)
[2025-01-13 06:31] LABS: CO2, Blood >45 mmol/L (21-32)
--- NOTE | 2025-01-13 12:00 | NUR ---
update television installer helper notified this rn that pt darlene 6 beast run of v-tach at 1134. pt sitting on eob, asymptomatic.
[2025-01-13 13:09] LABS: pH Blood Venous 7.48 (7.34-7.37)
--- NOTE | 2025-01-13 15:59 | NUR ---
ASSISTED PT WITH POLST. SHE REQUESTS BEING A FULL CODE, AND SIGNED THE DOCUMENT. SHE IS ALERT AND ORIENTED, DOES VERBALIZE UNDERSTANDING OF WHAT SHE IS SIGNING. REQUIRES PHYSICIAN SIGNATURE, AWARE.
--- NOTE | 2025-01-13 18:40 | NUR ---
SHIFT SUMMARY PT A/OX4 AND COOPERATIVE OF CARE. PT ABLE TO EXPRESS NEEDS AND CALLS APPROPIATE. [PT INDEPENDENT IN ANA AND BED, TOLERATES WELL. PT HR REMAINED AFIB WITH HR 110-130'S THIS MORNING. HR IN THE 80-100'S THSI EVENING. OTHER VSS THROUGHOUT SHIFT WITH O2 SATS IN GANESH 90'SON 3L NC WHICH IS BASELINE. PT PLANS FOR HOME O2 EVAL IN THE AM AND DISCHARGE TOMORROW IF HR REMAINS CONTROLED.
[2025-01-14] VITALS (8 sets, daily range): BP systolic 99–119; BP diastolic 62–98
[2025-01-14 04:04] LABS: BASOPHILS ABSOLUTE AUTO 0.01 K/mm3 (0.00-0.23); BASOPHILS PERCENT AUTO 0 % (0-2); EOSINOPHILS ABSOLUTE AUTO 0.09 K/mm3 (0.00-0.68); EOSINOPHILS PERCENT AUTO 1 % (0-6); Hematocrit 27.0 % (33.0-51.0); Hemoglobin 8.0 g/dL (11.5-16.0); IMMATURE GRAN ABSOLUTE AUTO 0.04 K/mm3 (0.00-0.10); IMMATURE GRAN PERCENT AUTO 1 % (0-1); LYMPHOCYTES ABSOLUTE AUTO 0.39 K/mm3 (0.84-5.20); LYMPHOCYTES PERCENT AUTO 5 % (21-46); MONOCYTES ABSOLUTE AUTO 0.78 K/mm3 (0.16-1.47); MONOCYTES PERCENT AUTO 11 % (4-13); Mean Corpuscular HGB Conc 29.6 g/dL (31.5-36.5); Mean Corpuscular Volume 106 fL (80-100); NEUTROPHILS ABSOLUTE AUTO 6.12 K/mm3 (1.96-9.15); NEUTROPHILS PERCENT AUTO 83 % (41-73); NRBC ABSOLUTE 0.02 K/mm3 (0.00-0.02); NRBC Auto 0.3 /100 WBC (0.0-0.2); Platelet Count 100 K/mm3 (150-400); RDW Coefficient Variation 14.5 % (11.7-14.2); RDW Standard Deviation 55.8 fL (35.1-46.3)
[2025-01-14 04:44] LABS: Anion Gap Unable to Calculate mmol/L (3-11); Blood Urea Nitrogen 45 mg/dL (8-24); Calcium, Blood 8.8 mg/dL (8.5-10.1); Chloride, Blood 87 mmol/L (98-108); Creatinine, Blood 1.11 mg/dL (0.40-1.00); Glucose, Blood 98 mg/dL (70-99); Potassium, Blood 3.4 mmol/L (3.5-5.5); Sodium, Blood 139 mmol/L (136-145)
[2025-01-14 04:45] LABS: CO2, Blood >45 mmol/L (21-32)
--- NOTE | 2025-01-14 06:41 | NUR ---
SHIFT SUMMARY PATIENT ALERT AND ORIENTED X4. HAD NO COMPLAINTS OF PAIN OR SHORTNESS OF BREATH. ON HOME DOSE O2 WHILE AWAKE AND CPAP FOR SLEEP. VITAL SIGNS STABLE. NO ACUTE ISSUES NOTED OVERNIGHT. WILL CONTINUE TO MONITOR. CALL LIGHT WITHIN REACH.
--- NOTE | 2025-01-14 07:46 | NUR ---
PT UPDATE CALLED PMD ABOUT POTASSIUM BEING 3.4 AND ORDERS TO BE PLACED.
--- NOTE | 2025-01-14 12:55 | NUR ---
PT UPDATE CALLED TO NOTIFY MD ABOUT ELIQUIS TODAY AT 0928 AND CLARIFIED THAT IMAGING DOES NOT DO THORACENTESIS 24 HRS AFTER ELIQUIS WAS GIVEN. IMAGING CALLED NOTIFING THAT THORACENTESIS CAN NOT BE OCCUR UNTIL 48 HRS AFTER ELIQUIS WAS GIVEN.
--- NOTE | 2025-01-14 17:14 | NUR ---
END OF SHIFT SUMMARY PT IS A/0 X4, ABLE TO MAKE NEEDS KNOWN AND CAN MOVE EXTREMITIES EQUALLY AND BILATERALLY. CONTINUOUS CARDAIC MONITORING IS IN PLACE SHOWING AFIB WITH A HR IN THE 90'S-130'S. HEPRAIN IS TO BE STARTED AT 2100, 01/14. PT IS ON 4L NC WITH SP02 >92%, WORK OF BREATHING CAN INCREASE WITH MOVEMENT. PT HAS HAD A BM THIS SHIFT AND IS IND TO THE BATHROOM. R PIV TO THE WRIST AND LAC PIV IS IN PLACE. BED IN LOWEST POSITION, CALL LIGHT IN REACH, WILL REPORT TO ONCOMING SHIFT.
[2025-01-14] MEDS ORDERED: Heparin Sodium,Porcine/0.5 NS 500 ML IV SCH (21:00)
--- NOTE | 2025-01-14 21:10 | NUR ---
ASSUMPTION OF CARE ASSUMED CARE OF PT AT APPROXIMATELY 1900. PT RESTING COMFORTABLY IN BED. INITIATED HEPARIN GTT AT 15 UNITS/KG/HR. EDUCATED PT ON PURPOSE FOR HEPARIN GTT AND TO REPORT ANY NEW OR CHANGING SYMPTOMS. MEDICATION GIVEN PER EMAR. PT RESTING COMFORTABLY IN BED. CALL LIGHT WITHIN REACH. COMMODE AT BEDSIDE. NO C/O CHEST PAIN OR PRESSURE. NO C/O SOB. PT AOX4. ABLE TO MAKE ALL NEEDS KNOWN AND CALLS APPROPRIATELY FOR ASSISTANCE WHEN NEEDED.
[2025-01-15] VITALS (10 sets, daily range): BP systolic 90–116; BP diastolic 56–80
[2025-01-15 03:13] LABS: Hematocrit 27.1 % (33.0-51.0); Hemoglobin 8.1 g/dL (11.5-16.0); Platelet Count 101 K/mm3 (150-400)
[2025-01-15] MEDS ORDERED: Dose Adjust by Pharmacy XX STA ×5 (03:51→23:06)
--- NOTE | 2025-01-15 05:28 | NUR ---
SHIFT SUMMARY HEPARIN GTT RUNNING AT 16 UNITS/KG/HR. PT TOLERATING WELL. NO C/O SOB. NO C/O CHEST PAIN OR PRESSURE. PT AOX4, ABLE TO MAKE ALL NEEDS KNOWN. CONTINUE TO HOLD ELIQUIS FOR THORACENTESIS. LAST DOSE GIVEN 01/14. PT INDEPENDENT IN ROOM. COMMODE AT BEDSIDE FOR EASIER IV LINE MANAGEMENT. CALL LIGHT WITHIN REACH AND PT CALLS APPROPRIATELY FOR ASSISTANCE WHEN NEEDED.
[2025-01-15 06:36] LABS: Mean Corpuscular HGB Conc 29.7 g/dL (31.5-36.5); Mean Corpuscular Volume 103 fL (80-100); NRBC ABSOLUTE 0.00 K/mm3 (0.00-0.02); NRBC Auto 0.0 /100 WBC (0.0-0.2); RDW Coefficient Variation 14.5 % (11.7-14.2); RDW Standard Deviation 54.4 fL (35.1-46.3)
[2025-01-15 06:53] LABS: Alanine Aminotransfer (ALT/SGP 30 U/L (12-78); Albumin, Blood 3.4 g/dL (3.4-5.0); Albumin/Globulin Ratio 1.3 (0.8-1.8); Anion Gap Unable to Calculate mmol/L (3-11); Aspartate Aminotrans (AST/SGOT 20 U/L (12-37); Bilirubin, Total 2.4 mg/dL (0.1-1.0); Blood Urea Nitrogen 38 mg/dL (8-24); Calcium, Blood 9.0 mg/dL (8.5-10.1); Chloride, Blood 84 mmol/L (98-108); Creatinine, Blood 1.07 mg/dL (0.40-1.00); Globulin, Blood 2.6 g/dL (2.2-4.0); Glucose, Blood 110 mg/dL (70-99); Potassium, Blood 3.5 mmol/L (3.5-5.5); Sodium, Blood 137 mmol/L (136-145); Total Protein, Blood 6.0 g/dL (6.4-8.2)
[2025-01-15 06:54] LABS: CO2, Blood >45 mmol/L (21-32)
[2025-01-15] MEDS ORDERED: Polyethylene Glycol 3350 17 gm PO PRN (08:00)
[2025-01-15] MEDS ORDERED: Polyethylene Glycol 3350 17 gm PO ONE (08:00)
--- NOTE | 2025-01-15 17:02 | NUR ---
END OF SHIFT SUMMARY PT IS A/O X4, ABLE TO MAKE NEEDS KNOWN AND MOVE EXTREMITIES EQUALLY AND BIALTERALLY. CONTINUOUS CARDIAC MONITORING IN PLACE SHOWING AFIB, MAP >65, AND HR IN THE 80'S-90'S. PT IS ON 3L NC WITH SP02 >92%, 4L WITH MOVEMENT. PT TOLERATES PO INTAKE WELL. INDEPENDENT TO THE BSC. HEPRAIN IS INFUSING AT 21.8 U/KG/HR. BED IN LOWEST POSITION, CALL LIGHT IN REACH, WILL REPORT TO ONCOMING SHIFT.
--- NOTE | 2025-01-15 22:43 | NUR ---
ASSUMPTION OF CARE ASSUMED CARE OF PT AT APPROXIMATELY 1900. HEPARIN GTT RUNNING AT 21.8 UNITS/KG/HR. PT TOLERATING WELL. RIGHT WRIST IV LEAKING AND REMOVED. PT TOLERATED WELL. HEPARIN CONTINUED IN LEFT AC IV. PT INDEPENDENT TO COMMODE. AOX4. NO C/O CHEST PAIN OR PRESSURE AT THIS TIME. NO C/O SOB. CALL LIGHT WITHIN REACH AND PT ABLE TO CALL FOR ASSISTANCE WHEN NEEDED.
[2025-01-16 03:40] VITALS: BP 101/63
[2025-01-16 04:55] LABS: Hematocrit 28.5 % (33.0-51.0); Hemoglobin 8.7 g/dL (11.5-16.0); Mean Corpuscular HGB Conc 30.5 g/dL (31.5-36.5); Mean Corpuscular Volume 101 fL (80-100); NRBC ABSOLUTE 0.00 K/mm3 (0.00-0.02); NRBC Auto 0.0 /100 WBC (0.0-0.2); Platelet Count 107 K/mm3 (150-400); RDW Coefficient Variation 14.5 % (11.7-14.2); RDW Standard Deviation 54.2 fL (35.1-46.3)
--- NOTE | 2025-01-16 05:27 | NUR ---
SHIFT SUMMARY PT RESTING COMFORTABLY IN BED. INDEPENDENT TO BSC. HEPARIN GTT CONTINUES AT 21.8 UNITS/KG/HR. NO C/O SOB. NO C/O CHEST PAIN OR PRESSURE THIS SHIFT. PT EAGER TO DISCHARGE. AOX4. CALL LIGHT WITHIN REACH AND PT ABLE TO CALL FOR ASSISTANCE APPROPRIATELY WHEN NEEDED. BED IN LOWEST AND LOCKED POSITION
[2025-01-16] MEDS ORDERED: Dose Adjust by Pharmacy XX STA (06:18)
[2025-01-16 06:29] LABS: Alanine Aminotransfer (ALT/SGP 29 U/L (12-78); Albumin, Blood 3.4 g/dL (3.4-5.0); Albumin/Globulin Ratio 1.3 (0.8-1.8); Aspartate Aminotrans (AST/SGOT 16 U/L (12-37); Bilirubin, Total 3.0 mg/dL (0.1-1.0); Blood Urea Nitrogen 34 mg/dL (8-24); Calcium, Blood 9.2 mg/dL (8.5-10.1); Chloride, Blood 86 mmol/L (98-108); Creatinine, Blood 1.12 mg/dL (0.40-1.00); Globulin, Blood 2.7 g/dL (2.2-4.0); Glucose, Blood 120 mg/dL (70-99); Potassium, Blood 3.2 mmol/L (3.5-5.5); Sodium, Blood 135 mmol/L (136-145); Total Protein, Blood 6.1 g/dL (6.4-8.2)
[2025-01-16 06:30] LABS: Anion Gap Unable to Calculate mmol/L (3-11)
[2025-01-16 06:31] LABS: CO2, Blood >45 mmol/L (21-32)
[2025-01-16 07:48] VITALS: BP 118/92
[2025-01-16 08:25] LABS: Prothrombin Time Results 11.6 Sec (9.7-11.5)
[2025-01-16] MEDS ORDERED: Magnesium Sulf 2 GM/Water 50ML 50 ML IV ONE (11:35)
[2025-01-16 11:40] VITALS: BP 100/69
[2025-01-16] MEDS ORDERED: NS 250 ML IV PRN (12:25)
[2025-01-16 15:00] VITALS: BP 117/72
[2025-01-16 15:28] LABS: Automated BF WBC Count 0.221 K/mm3 (0-999)
[2025-01-16 16:40] LABS: RBC Count, Body Fluid 173 /mm3 (0-0)
[2025-01-16 17:39] LABS: Color, Body Fluid Yellow (None-Yellow); Lymphocytes, Fluid 20.0 % (0.0-18.0); Monocytes/Mononuclear, Fluid 62.0 % (0.0-50.0); Neutrophils, Fluid 18.0 % (0.0-25.0); Total Cell Count, Body Fluid 100
--- NOTE | 2025-01-16 17:49 | NUR ---
SHIFT SUMMARY; ASSUMED CARE AT 0700. A/A/OX4. 3L 02 VIA NH, WHICH IS BASELINE. L/S CLEAR T/O. THORACENTESIS TODAY WITH 950 OUT. HEPARIN DC'D AND ELIQUIS TO BE RESUMED STARTING TONIGHT. AMBLATES IN ROOM WITHOUT DIFFICULTY, REPOSITIONS SELF. VSS, NO ACUTE CHANGES, WILL CONTINUE TO MONITOR AND TREAT UNTIL REPORT GIVEN TO NOC SHIFT RN.
[2025-01-16 20:38] VITALS: BP 119/67
[2025-01-16 23:35] VITALS: BP 111/70
[2025-01-17 03:19] VITALS: BP 105/58
[2025-01-17 03:59] LABS: Hematocrit 29.4 % (33.0-51.0); Hemoglobin 9.3 g/dL (11.5-16.0); Mean Corpuscular HGB Conc 31.6 g/dL (31.5-36.5); Mean Corpuscular Volume 100 fL (80-100); NRBC ABSOLUTE 0.00 K/mm3 (0.00-0.02); NRBC Auto 0.0 /100 WBC (0.0-0.2); Platelet Count 137 K/mm3 (150-400); RDW Coefficient Variation 14.3 % (11.7-14.2); RDW Standard Deviation 51.0 fL (35.1-46.3)
[2025-01-17 04:26] LABS: Albumin, Blood 3.4 g/dL (3.4-5.0); Anion Gap 8 mmol/L (3-11); Blood Urea Nitrogen 35 mg/dL (8-24); CO2, Blood 42 mmol/L (21-32); Calcium, Blood 9.6 mg/dL (8.5-10.1); Chloride, Blood 87 mmol/L (98-108); Creatinine, Blood 1.16 mg/dL (0.40-1.00); Glucose, Blood 135 mg/dL (70-99); Phosphorus, Blood 4.4 mg/dL (2.5-4.9); Potassium, Blood 3.5 mmol/L (3.5-5.5); Sodium, Blood 133 mmol/L (136-145)
--- NOTE | 2025-01-17 06:17 | NUR ---
SHIFT SUMMARY ASSUMED CARE OF PT AT APPROXIMATELY 1900. PT RESTING COMFORTABLY IN BED. NO C/O CHEST PAIN OR PRESSURE. NO C/O SOB. SPO2 >92% ON 3L NC. PT INDEPENDENT IN ROOM. AOX4. PT ABLE TO MAKE ALL NEEDS KNOWN. CALL LIGHT WITHIN REACH AND PT CALLS APPROPRIATELY FOR ASSISTANCE WHEN NEEDED. PT EAGER TO GO HOME.
[2025-01-17 07:51] VITALS: BP 121/63
[2025-01-17] MEDS ORDERED: Torsemide 20 MG TAB PO SCH (09:00)
[2025-01-17 11:28] VITALS: BP 124/61
[2025-01-17] MEDS ORDERED: METO50ER PO (12:36)
[2025-01-17] MEDS ORDERED: DILTIAZEM 24HR240 M4 PO (12:38)
== END 2025-01-17 14:52 | disposition home or self-care (01) | DRG 291 ==
LOC: ER 11:08 → ICUE 11:09 → PCU 01-09 09:42 → ICUE 01-09 09:42 → PCU 01-12 20:12
PROVIDERS: Emergency Medicine; Hospitalist; Registered Nurse; Student in an Organized Health Care Education/Training Program; ADMIT Internal Medicine
PROC: 5A09357 Assistance with Respiratory Ventilation, Less than 24 Consecutive Hours, Continuous Positive Airway Pressure (ICD-10-PCS; principal; 2025-01-08)
PROC: 0T9B70Z Drainage of Bladder with Drainage Device, Via Natural or Artificial Opening (ICD-10-PCS; 2025-01-08)
PROC: 3E03329 Introduction of Other Anti-infective into Peripheral Vein, Percutaneous Approach (ICD-10-PCS; 2025-01-08)
PROC: 4A133R1 Monitoring of Arterial Saturation, Peripheral, Percutaneous Approach (ICD-10-PCS; 2025-01-08)
DX: I13.0 Hypertensive heart and chronic kidney disease with heart failure and stage 1 through stage 4 chronic kidney disease, or unspecified chronic kidney disease (principal); G93.41 Metabolic encephalopathy; I50.33 Acute on chronic diastolic (congestive) heart failure; J96.21 Acute and chronic respiratory failure with hypoxia; J96.22 Acute and chronic respiratory failure with hypercapnia; J18.9 Pneumonia, unspecified organism; J44.1 Chronic obstructive pulmonary disease with (acute) exacerbation; J91.8 Pleural effusion in other conditions classified elsewhere; J44.0 Chronic obstructive pulmonary disease with (acute) lower respiratory infection; E87.29 Other acidosis; N18.30 Chronic kidney disease, stage 3 unspecified; I48.0 Paroxysmal atrial fibrillation; D63.1 Anemia in chronic kidney disease; J43.9 Emphysema, unspecified; E78.5 Hyperlipidemia, unspecified; I25.10 Atherosclerotic heart disease of native coronary artery without angina pectoris; D53.9 Nutritional anemia, unspecified; I25.2 Old myocardial infarction; Z99.81 Dependence on supplemental oxygen; Z85.118 Personal history of other malignant neoplasm of bronchus and lung; Z92.21 Personal history of antineoplastic chemotherapy; Z92.3 Personal history of irradiation; Z88.0 Allergy status to penicillin; Z79.01 Long term (current) use of anticoagulants; Z87.891 Personal history of nicotine dependence
CPT/HCPCS: 0202U; 32555; 36415; 36600; 51702; 70450; 71045; 80048; 80053; 80069; 81001; 82803; 82947; 83735; 83880; 84100; 84132; 84145; 84484; 85014; 85018; 85025; 85027; 85049; 85610; 85730; 86850; 86900; 86901; 87040; 88108; 88305; 89051; 93005; 93010; 93306; 94640; 94660; 94664; 94760; 94761; 94762; 96365; 96366; 96367; 96372; 96374-59; 96375; 96376; 96376-59; 99285-25; A9270; G0378; J0282; J0456; J0696; J1644; J1650; J1938; J2060; J2312; J2405; J2919; J3373; J3475; J7040; J7050

== ENCOUNTER 2025-02-03 07:18 | Inpatient (IN) | payer MEDICARE, OTHER ==
[2025-02-03] VITALS (51 sets, daily range): BP systolic 82–146; BP diastolic 44–121
[~2025-02-03] VITALS: Ht 157.5 cm; Wt 93.0 kg
[~2025-02-03 07:18] MED LIST changes: +DILTIAZEM 24HR240 M4 PO
[2025-02-03] MEDS ORDERED: Albuterol 2.5 MG/3 ML VIAL INH SCH (07:25)
[2025-02-03 07:33] LABS: BASOPHILS ABSOLUTE AUTO 0.07 K/mm3 (0.00-0.23); BASOPHILS PERCENT AUTO 1 % (0-2); EOSINOPHILS ABSOLUTE AUTO 0.02 K/mm3 (0.00-0.68); EOSINOPHILS PERCENT AUTO 0 % (0-6); Hematocrit 29.2 % (33.0-51.0); Hemoglobin 8.5 g/dL (11.5-16.0); IMMATURE GRAN ABSOLUTE AUTO 0.14 K/mm3 (0.00-0.10); IMMATURE GRAN PERCENT AUTO 2 % (0-1); LYMPHOCYTES ABSOLUTE AUTO 0.61 K/mm3 (0.84-5.20); LYMPHOCYTES PERCENT AUTO 8 % (21-46); MONOCYTES ABSOLUTE AUTO 0.67 K/mm3 (0.16-1.47); MONOCYTES PERCENT AUTO 9 % (4-13); Mean Corpuscular HGB Conc 29.1 g/dL (31.5-36.5); Mean Corpuscular Volume 107 fL (80-100); NEUTROPHILS ABSOLUTE AUTO 5.86 K/mm3 (1.96-9.15); NEUTROPHILS PERCENT AUTO 80 % (41-73); NRBC ABSOLUTE 0.03 K/mm3 (0.00-0.02); NRBC Auto 0.4 /100 WBC (0.0-0.2); Platelet Count 223 K/mm3 (150-400); RDW Coefficient Variation 14.3 % (11.7-14.2); RDW Standard Deviation 55.4 fL (35.1-46.3)
[2025-02-03 07:42] LABS: pH Blood Venous 7.14 (7.34-7.37)
[2025-02-03] MEDS ORDERED: Ipratropium/Albuterol SulF 2.5-0.5MG/3 ML Amp INH ONE (07:45)
[2025-02-03] MEDS ORDERED: Mag Sulfate 1 GM/D5% 100ML 100 ML IV ONE (07:50)
[2025-02-03 07:53] LABS: Alanine Aminotransfer (ALT/SGP 30 U/L (12-78); Albumin, Blood 3.3 g/dL (3.4-5.0); Albumin/Globulin Ratio 0.9 (0.8-1.8); Aspartate Aminotrans (AST/SGOT 33 U/L (12-37); Bilirubin, Total 2.1 mg/dL (0.1-1.0); Blood Urea Nitrogen 35 mg/dL (8-24); Calcium, Blood 9.0 mg/dL (8.5-10.1); Chloride, Blood 95 mmol/L (98-108); Creatinine, Blood 1.61 mg/dL (0.40-1.00); Globulin, Blood 3.7 g/dL (2.2-4.0); Glucose, Blood 172 mg/dL (70-99); Potassium, Blood 4.6 mmol/L (3.5-5.5); Sodium, Blood 138 mmol/L (136-145); Total Protein, Blood 7.0 g/dL (6.4-8.2)
[2025-02-03 07:54] LABS: Anion Gap Unable to Calculate mmol/L (3-11); CO2, Blood >45 mmol/L (21-32)
[2025-02-03] MEDS ORDERED: CefTRIAXone Sodium 1,000 MG in NS 50 ML IV ONE (08:00)
[2025-02-03 08:34] LABS: Influenza A, PCR NEGATIVE (NEGATIVE); Influenza B, PCR NEGATIVE (NEGATIVE); Resp Syncytial Virus, PCR NEGATIVE (NEGATIVE); SARS-Cov-2 (COVID-19) PCR, MMC NEGATIVE (NEGATIVE)
[2025-02-03] MEDS ORDERED: Ondansetron HCl 2 MG / ML 2ML Vial IV PRN (08:35)
[2025-02-03] MEDS ORDERED: FLU VACC TS2025(65UP)/MF59C/PF 45 MCG/0.5 ML SYRINGE IM SCH (08:35)
[2025-02-03] MEDS ORDERED: Albuterol 2.5 MG/3 ML VIAL INH PRN (09:00)
[2025-02-03] MEDS ORDERED: Lactobacil 2-S.Thermo-Bifido 1 1 Cap PO SCH (09:00)
[2025-02-03] MEDS ORDERED: Ipratropium/Albuterol SulF 2.5-0.5MG/3 ML Amp INH SCH (09:00)
[2025-02-03] MEDS ORDERED: Furosemide 10 MG / ML 2ML Vial IV SCH (09:11)
[2025-02-03] MEDS ORDERED: Miconazole Nitrate 2% 85 GM PWD TOP PRN (10:05)
[2025-02-03] MEDS ORDERED: NS 250 ML IV PRN (10:10)
[2025-02-03] MEDS ORDERED: NS 1,000 ML IV SCH (10:50)
[2025-02-03 10:54] LABS: pH Blood Venous 7.39 (7.34-7.37)
[2025-02-03 11:14] LABS: Prothrombin Time Results 11.4 Sec (9.7-11.5)
[2025-02-03 11:17] LABS: Anti-Xa UFH, PHA Monitoring >1.50 IU/mL
[2025-02-03] MEDS ORDERED: Heparin Sodium,Porcine/0.5 NS 500 ML IV SCH (11:25)
--- NOTE | 2025-02-03 11:31 | NUR ---
PT ARRIVES TO ICU 13 FROM ER AT 0930. ON VENT, DR. RUSHING CONSULTED AND HAS SEEN PT. VENT SETTINGS ADJUSTED BY DR. RUSHING. PT HYPOTENSIVE, DR. RUSHING ORDERED BOLUS AND IVF. ON PROPOFOL FOR LIGHT SEDATION. PT WILL OPEN EYE'S TO NAME, LOCALIZES PAIN. NOT FOLLOWING COMMANDS. TEMP WAS LOW ON ARRIVAL, BRUCE HUGGER APPLIED AND IS NOW NORMOTHERMIC. BRUCE HUGGER ON STANDBY AND PT IS NOT SHIVERING NOW. OG TO LIS WITH LIGHT BROWN CLEAR FLUID DRAINING. NO FAMILY ACCOMPANIES PT.
[2025-02-03 12:15] LABS: Thyroid Stimulating Hormone 1.3 uIU/mL (0.360-4.800)
[2025-02-03] MEDS ORDERED: SuccINYLCHOLINE Chloride 100 MG/5 ML 5MLSYR IV ONE (13:05)
[2025-02-03] MEDS ORDERED: Etomidate 2MG / ML 10ML Vial IV ONE (13:05)
[2025-02-03] MEDS ORDERED: Propofol 10mg/ml 20 ml Vial (Procedural) IV ONE (13:05)
--- NOTE | 2025-02-03 13:36 | NUR ---
NOTED RED/BROWN DRAINAGE FROM OG TUBE. NOTIFIED DR. RUSHING, HEPARIN GTT STOPPED.
[2025-02-03] MEDS ORDERED: Hydrogen Peroxide 1.5 % Solution MT SCH (16:00)
[2025-02-03] MEDS ORDERED: Heparin Sodium,Porcine 5,000 UNIT/0.5 ML SDV SC SCH (16:00)
--- NOTE | 2025-02-03 17:59 | NUR ---
SUMMARY PT INTUBATED AND SEDATED WITH PROPOFOL. WILL OPEN EYE'S TO NAME, DOES NOT FOLLOW COMMANDS, WILL MOVE EXTREMITIES. HYPOTENSIVE ON ARRIVAL TO ICU. ONE LITER BOLUS OF LR GIVEN AND NS AT 100ML/HR STARTED. MAP HAS BEEN 65 OR GREATER SINCE. HEPARIN GTT WAS STARTED THIS AFTERNOON FOR AFIB, ABOUT AN HOUR AFTER START THIS RN NOTICED BROWN/RED DRAINAGE FROM OG TUBE. HEPARIN WAS STOPPED PER DR. RUSHING. THIS EVENING OUTPUT LOOKS MORE RED. SPOKE WITH DR. RUSHING WHO ORDERED PROTONIX AND FOLLOW UP H&H NOW.
[2025-02-03 18:16] LABS: Hematocrit 24.2 % (33.0-51.0); Hemoglobin 7.4 g/dL (11.5-16.0)
--- NOTE | 2025-02-03 18:37 | NUR ---
CALLED DR. RUSHING WITH H&H RESULT, NEW ORDERS FOR H&H AT [address] RUSHING WITH RESULTS.
[2025-02-03] MEDS ORDERED: Cetylpyridinium Chloride 1 EA MISC MT SCH (20:00)
[2025-02-03] MEDS ORDERED: Pantoprazole Sodium 40 MG Injection IV SCH (21:00)
[2025-02-03 21:56] LABS: Hematocrit 23.2 % (33.0-51.0); Hemoglobin 7.1 g/dL (11.5-16.0)
--- NOTE | 2025-02-03 22:49 | NUR ---
DR RUSHING NOTIFIED OF PT LAB RESULTS. ORDERS GIVEN AND MD UPDATED ON PT CONDITION
[2025-02-03] MEDS ORDERED: LORazepam 2 MG/ML 1ML Injection IV PRN (22:50)
[2025-02-03] MEDS ORDERED: FentaNYL Citrate 50 MCG/ML 2 ML Injection IV PRN (22:50)
--- NOTE | 2025-02-03 23:43 | NUR ---
SPOKE TO DR AGUILA RE PT AFIB W/RVR AND INCREASING RATE SINCE MY SHIFT BEGAN. UPDATED HIM ON OTHER PT CONDITIONS APPROPRIATE. ORDERS GIVEN.
[2025-02-04] VITALS (58 sets, daily range): BP systolic 70–150; BP diastolic 35–123
[2025-02-04] MEDS ORDERED: NS 500 ML IV ONE
[2025-02-04] MEDS ORDERED: Metoprolol Tartrate 1 MG/ML 5 ML VIAL IV ONE
[2025-02-04 03:36] LABS: BASOPHILS ABSOLUTE AUTO 0.00 K/mm3 (0.00-0.23); BASOPHILS PERCENT AUTO 0 % (0-2); EOSINOPHILS ABSOLUTE AUTO 0.00 K/mm3 (0.00-0.68); EOSINOPHILS PERCENT AUTO 0 % (0-6); Hematocrit 24.4 % (33.0-51.0); Hemoglobin 7.4 g/dL (11.5-16.0); IMMATURE GRAN ABSOLUTE AUTO 0.05 K/mm3 (0.00-0.10); IMMATURE GRAN PERCENT AUTO 1 % (0-1); LYMPHOCYTES ABSOLUTE AUTO 0.25 K/mm3 (0.84-5.20); LYMPHOCYTES PERCENT AUTO 5 % (21-46); MONOCYTES ABSOLUTE AUTO 0.11 K/mm3 (0.16-1.47); MONOCYTES PERCENT AUTO 2 % (4-13); Mean Corpuscular HGB Conc 30.3 g/dL (31.5-36.5); NEUTROPHILS ABSOLUTE AUTO 4.30 K/mm3 (1.96-9.15); NEUTROPHILS PERCENT AUTO 91 % (41-73); NRBC ABSOLUTE 0.00 K/mm3 (0.00-0.02); NRBC Auto 0.0 /100 WBC (0.0-0.2); Platelet Count 137 K/mm3 (150-400); RDW Coefficient Variation 14.4 % (11.7-14.2); RDW Standard Deviation 52.7 fL (35.1-46.3); pH Blood Venous 7.58 (7.34-7.37)
[2025-02-04 03:42] LABS: Mean Corpuscular Volume 101 fL (80-100)
[2025-02-04 03:57] LABS: Alanine Aminotransfer (ALT/SGP 18.0 U/L (12-78); Albumin, Blood 3.0 g/dL (3.4-5.0); Albumin/Globulin Ratio 1.0 (0.8-1.8); Anion Gap 7.0 mmol/L (3-11); Aspartate Aminotrans (AST/SGOT 12.0 U/L (12-37); Bilirubin, Total 1.6 mg/dL (0.1-1.0); Blood Urea Nitrogen 39.0 mg/dL (8-24); CO2, Blood 39.0 mmol/L (21-32); Calcium, Blood 9.3 mg/dL (8.5-10.1); Chloride, Blood 94.0 mmol/L (98-108); Creatinine, Blood 1.56 mg/dL (0.40-1.00); Globulin, Blood 3.1 g/dL (2.2-4.0); Glucose, Blood 185.0 mg/dL (70-99); Magnesium, Blood 2.1 mg/dL (1.6-2.4); Phosphorus, Blood 2.9 mg/dL (2.5-4.9); Potassium, Blood 3.1 mmol/L (3.5-5.5); Sodium, Blood 137.0 mmol/L (136-145); Total Protein, Blood 6.1 g/dL (6.4-8.2)
[2025-02-04] MEDS ORDERED: Metoprolol Tartrate 1 MG/ML 5 ML VIAL IV SCH (04:05)
--- NOTE | 2025-02-04 05:39 | NUR ---
JOVAN PEDROZA PT IS INTUBATED W/ETT INTACT AND PATENT TO THE VENT. SHE IS SEDATED W/PROPOFOL, SEE [facility]. SHE HAS BEEN GIVEN PRN MEDS WELL PER MD ORDER. SHE HAS BEEN IN AFIB W/RATE NOT WELL CONTROLLED. DR AGUILA HAS BEEN NOTIFIED OF THIS I HAVE SPOKEN WITH HIM NUMEROUS TIMES. HER BP IS WNL. MEDS WERE GIVEN PER MD ORDER TO ATTEMPT TO LOWER HEART RATE BUT THEY WERE NOT COMPLETELY EFFECTIVE. DILLON CATH INTACT PATENT AND DRAINING YELLOW URINE TO GRAVITY. OG DRAINAGE HAS IMPROVED FROM A DARK RUST TO A GLASS FORMING ENGINEER COLOR, H&H REMAINS STABLE ON MORNING LABS. OXYGEN SAT HAS BEEN >95% W/NO EPISODES OF ACUTE DISTRESS OVERNIGHT.
--- NOTE | 2025-02-04 08:00 | NUR ---
ASSUMPTION OF CARE RECEIVED REPORT FROM [facility] NURSE. PT IS INTUBATED ADN SEDATED. PROP AT 40MCG. PT RESPONDS TO TACTILE STIMULI. PT HAS DIMINISHED LUNG SOUNDS T/O. PT ON VENT SETTINGS 16/275/5/35% WITH SPO2 >92%. PT HAS OG TUBE TO LIS. PT IN AFIB, HR IN 120-130S AND REACHES 150-160S BUT DOES NOT SUSTAIN. DR AWARE. MAP >65 WITH SBP IN 110-120S. DILLON CATH IN PLACE, PATENT AND DRAINING TO GRAVITY. CAP REFILL <[address] PT HAS TWO PIVS, WNL. NO NEEDS NOTED AT THIS TIME.
[2025-02-04] MEDS ORDERED: CefTRIAXone Sodium 1,000 MG in NS 100 ML IV SCH (09:00)
--- NOTE | 2025-02-04 09:09 | NUR ---
PALLIATIVE CARE NOTE: CONSULT RECEIVED FOR READMISSION. REVIEWED MEDICAL RECORD. PT WAS INTUBATED AND ADMITTED TO ICU. POLST ON FILE STATES CPR. PT CURRENTLY FULL CODE. WILL DISCUSS CONCERNS DURING MDR THIS MORNING.
[2025-02-04] MEDS ORDERED: Docusate Sodium Liquid 100 MG UDC PT PRN (10:30)
[2025-02-04] MEDS ORDERED: Magnesium Hydroxide Conc 10 ML UDC PT PRN (10:30)
[2025-02-04 13:49] LABS: Hematocrit 24.6 % (33.0-51.0); Hemoglobin 7.5 g/dL (11.5-16.0)
--- NOTE | 2025-02-04 18:30 | NUR ---
SHIFT SUMMARY PT INTUBATED AND SEDATED. RASS -3 TO +2 T/O SHIFT. PT AT TIMES IS ABLE TO OPEN EYES TO VERBAL STIMULI AND FOLLOW COMMANDS. PT INTUBATED, VENT SETTINGS AC/VC 16/275/5/35% WITH SPO2 >90%. PT HAD ONE EPISODE OF SPO2 IN LOW 80S WHEN PT WAS FIGHTING THE VENT. PT RECOVERED QUICKLY. PT IN AFIB, HR IN 110-160S. HR WILL SUSTAIN IN 140-150S, PRN MEDS GIVEN. DR AWARE OF TACHYCARDIA. MAP >65 FOR MAJORITY OF SHIFT. MAP DECREASED TO 60-64 AFTER PRN PAIN MEDS GIVEN, RECOVERED QUICKLY. PT HAS DILLON CATH IN PLACE, PATENT AND DRAINING TO GRAVITY. TUBE FEEDING INTITIATED, AT GOAL RATE OF 25ML/HR. PT HAS TWO PIVS, WNL. PER , SBT AND SAT TOMORROW. SCDS IN PLACE. NO NEEDS EVIDENT AT THIS TIME.
--- NOTE | 2025-02-04 22:07 | NUR ---
ASSUMPTION OF CARE ASSUMED CARE OF PT APPROX 1900. PT REMAINS INTUBATED AND SEDATED AT START OF SHIFT WITH PROPOFOL INFUSING AT 45 MCG AND RASS OF -2 TO -3 DEPENDING ON LEVEL OF STIMULATION. PT ATTEMPTS TO OPEN EYES TO NAME AND TOUCHING SHOULDER, BECOMES AGITATED WITH ORAL CARE AND REPOSITIONING. PT REMAINS IN AFIB ON MONITOR WITH RATES IN THE 120S-130S AND RISING TO THE 150S AT TIMES BEFORING COMING BACK DOWN. BP IS LABILE, MAP OCCASSIONALY DIPPING TO 63 AND UPON REMEASURING RECOVERS TO 65-75 RANGE WITH SYSTOLIC IN THE LOW 100S. SATS >93% ON VENTILATOR. SETTINGS A/C VC 16/275/5/35% FI02 AT START OF SHIFT -SEE FLOWSHEET. CALL LIGHT WITHIN REACH.
[2025-02-04] MEDS ORDERED: Diltiazem HCl 5 MG / ML 5ML Vial IV ONE (22:35)
[2025-02-05] VITALS (89 sets, daily range): BP systolic 74–131; BP diastolic 50–114
[2025-02-05 02:06] LABS: pH Blood Venous 7.64 (7.34-7.37)
[2025-02-05 02:36] LABS: BASOPHILS ABSOLUTE AUTO 0.01 K/mm3 (0.00-0.23); BASOPHILS PERCENT AUTO 0 % (0-2); EOSINOPHILS ABSOLUTE AUTO 0.00 K/mm3 (0.00-0.68); EOSINOPHILS PERCENT AUTO 0 % (0-6); Hematocrit 22.3 % (33.0-51.0); Hemoglobin 6.8 g/dL (11.5-16.0); IMMATURE GRAN ABSOLUTE AUTO 0.07 K/mm3 (0.00-0.10); IMMATURE GRAN PERCENT AUTO 1 % (0-1); LYMPHOCYTES ABSOLUTE AUTO 0.20 K/mm3 (0.84-5.20); LYMPHOCYTES PERCENT AUTO 3 % (21-46); MONOCYTES ABSOLUTE AUTO 0.36 K/mm3 (0.16-1.47); MONOCYTES PERCENT AUTO 6 % (4-13); Mean Corpuscular HGB Conc 30.5 g/dL (31.5-36.5); Mean Corpuscular Volume 102 fL (80-100); NEUTROPHILS ABSOLUTE AUTO 5.63 K/mm3 (1.96-9.15); NEUTROPHILS PERCENT AUTO 90 % (41-73); NRBC ABSOLUTE 0.02 K/mm3 (0.00-0.02); NRBC Auto 0.3 /100 WBC (0.0-0.2); Platelet Count 133 K/mm3 (150-400); RDW Coefficient Variation 14.9 % (11.7-14.2); RDW Standard Deviation 55.3 fL (35.1-46.3)
[2025-02-05 02:37] LABS: Alanine Aminotransfer (ALT/SGP 17.0 U/L (12-78); Albumin, Blood 2.5 g/dL (3.4-5.0); Albumin/Globulin Ratio 0.8 (0.8-1.8); Anion Gap 8.0 mmol/L (3-11); Aspartate Aminotrans (AST/SGOT 9.0 U/L (12-37); Bilirubin, Total 1.1 mg/dL (0.1-1.0); Blood Urea Nitrogen 45.0 mg/dL (8-24); CO2, Blood 38.0 mmol/L (21-32); Calcium, Blood 8.9 mg/dL (8.5-10.1); Chloride, Blood 95.0 mmol/L (98-108); Creatinine, Blood 1.41 mg/dL (0.40-1.00); Globulin, Blood 3.0 g/dL (2.2-4.0); Glucose, Blood 210.0 mg/dL (70-99); Magnesium, Blood 2.1 mg/dL (1.6-2.4); Phosphorus, Blood 4.0 mg/dL (2.5-4.9); Potassium, Blood 3.3 mmol/L (3.5-5.5); Sodium, Blood 138.0 mmol/L (136-145); Total Protein, Blood 5.5 g/dL (6.4-8.2)
--- NOTE | 2025-02-05 05:43 | NUR ---
SHIFT SUMMARY PT REMAINS INTUBATED AND SEDATED, RASS -2 WITH PROPOFOL INFUSING AT 40 MCG, PT EXPERIENCED A FEW EPISODES OF DESATTING T/O SHIFT, MOST RECENT WAS APPROX 0330 DESAT TO MID 80S, SUCTIONED AND INCREASED FI02 - SEE [facility]. CURRENT VENT SETTINGS A/C VC 16/275/5/45% FI02, SATS 96%. PT REMAINS IN AFIB WITH RATE IN THE 120S-150S, WAS GIVEN IV METOPROLOL AND IV CARDIZEM, BP REMAINS LABILE, MAP MAINTAINED >65 FOR MOST OF SHIFT WITH VERY BRIEF DIPS TO 63, SYSTOLICS IN THE 80S-90S. AM LABS SHOWED HBG OF 6.8 AND POTASSIUM 3.3, NOTIFIED PROVIDER AND ORDERS UPDATED AND POTASSIUM HUNG, PROVIDER ATTEMPTED CALL TO SPOUSE FOR BLOOD CONSENT WITH NO RESPONSE, WILL REACH OUT AGAIN THIS AM. TYPE AND SCREEN DRAWN, H&H REDRAW AT 0700 -SEE PROGRESS NOTE. TEMP DILLON REMAINS IN PLACE AND DRAINING TO GRAVITY, OGT IN PLACE WITH TF RUNNING AT 25 ML/HR WHICH IS THE GOAL RATE. CALL LIGHT WITHIN REACH.
[2025-02-05 07:29] LABS: Hematocrit 26.5 % (33.0-51.0); Hemoglobin 8.0 g/dL (11.5-16.0)
--- NOTE | 2025-02-05 08:00 | NUR ---
ASSUMPTION OF CARE RECEIVED REPORT FROM [facility] NURSE. PT INTUBATED AND SEDATED. PT ABLE TO NOD HER HEAD YES OR NO TO QUESTIONS AND FOLLOW COMMANDS. RASS SCORE 0 TO +1. PT INTUBATED, VENT SETTINGS ACVC 16/275/5/35% WITH SPO2 >90%. WHEEZING NOTED T/O LUNGS. HR IN 150-160S, MAP >65 WITH SBP IN 110-120S. PT IN AFIB. NO ABD DISTENTION OR PAIN WITH PALPITATION. DILLON CATH IN PLACE, PATENT AND DRAINING TO GRAVITY. PT HAS SCATTERED BRUISING T/O. BUE SOFT RESTRAINTS IN PLACE. NO NEEDS NOTED AT THIS TIME.
[2025-02-05] MEDS ORDERED: Protein Supplement 30 ML UD PT SCH (09:00)
[2025-02-05] MEDS ORDERED: Petrolatum/Mineral Oil/Lanolin 1 APPLIC/50 GM Tube TOP SCH (09:15)
--- NOTE | 2025-02-05 13:30 | NUR ---
ROUNDED ON PT. SHE REMAINS INTUBATED. DISCUSSED WITH ICU POWERTRAIN DESIGN ENGINEER
--- NOTE | 2025-02-05 14:10 | NUR ---
CHANGE IN ETT TUBE PLACEMENT XRAY WAS PERFORMED FOR PICC PLACEMENT, DR. RUSHING NOTED ETT TUBE PLACEMENT WAS TOO DEEP. PER DR. RUSHING, ETT TUBE WAS CHANGED FROM 24CM AT TEETH TO 22CM AT TEETH.
--- NOTE | 2025-02-05 18:15 | NUR ---
SHIFT SUMMARY PT IS INTUBATED AND SEDATED. PROP AT 40. PT VENT SETTINGS 16/300/5/40% FIO2. SPO2 >92%. WHEEZES NOTED T/O LUNG SOUNDS AT ASSUMPTION OF CARE, IMPROVED T/O SHIFT. PER DR. RUSHING, ETT TUBE PLACING CHANGED FROM 24 AT TEETH TO 22 AT TEETH. HR IN 120S-160S, MAP >65 BUT SBP 90-120S. A FEW EPISODES OF HYPOTENSION WITH SBP IN 80S. RESTARTED CARDIZEM Q6 PT. NO ABD PAIN NOTED. DILLON CATH IN PLACE, PATENT AND DRAINING TO GRAVITY. TUBE FEEDING AT 25ML/HR, GOAL RATE IS 25ML. DC'D LEFT HAND PIV. PLACED PICC IN MO. TMAX OF 99.5 T/O SHIFT. SCDS IN PLACE. NO NEEDS NOTED AT THIS TIME.
[2025-02-06] VITALS (82 sets, daily range): BP systolic 69–141; BP diastolic 50–108
[2025-02-06 05:07] LABS: BASOPHILS ABSOLUTE AUTO 0.01 K/mm3 (0.00-0.23); BASOPHILS PERCENT AUTO 0 % (0-2); EOSINOPHILS ABSOLUTE AUTO 0.00 K/mm3 (0.00-0.68); EOSINOPHILS PERCENT AUTO 0 % (0-6); Hematocrit 24.2 % (33.0-51.0); Hemoglobin 7.3 g/dL (11.5-16.0); IMMATURE GRAN ABSOLUTE AUTO 0.19 K/mm3 (0.00-0.10); IMMATURE GRAN PERCENT AUTO 2 % (0-1); LYMPHOCYTES ABSOLUTE AUTO 0.24 K/mm3 (0.84-5.20); LYMPHOCYTES PERCENT AUTO 3 % (21-46); MONOCYTES ABSOLUTE AUTO 0.34 K/mm3 (0.16-1.47); MONOCYTES PERCENT AUTO 4 % (4-13); Mean Corpuscular HGB Conc 30.2 g/dL (31.5-36.5); Mean Corpuscular Volume 102 fL (80-100); NEUTROPHILS ABSOLUTE AUTO 7.01 K/mm3 (1.96-9.15); NEUTROPHILS PERCENT AUTO 90 % (41-73); NRBC ABSOLUTE 0.09 K/mm3 (0.00-0.02); NRBC Auto 1.2 /100 WBC (0.0-0.2); Platelet Count 147 K/mm3 (150-400); RDW Coefficient Variation 15.1 % (11.7-14.2); RDW Standard Deviation 56.1 fL (35.1-46.3); pH Blood Venous 7.48 (7.34-7.37)
[2025-02-06 05:32] LABS: Alanine Aminotransfer (ALT/SGP 16.0 U/L (12-78); Albumin, Blood 2.8 g/dL (3.4-5.0); Albumin/Globulin Ratio 1.0 (0.8-1.8); Anion Gap 8.0 mmol/L (3-11); Aspartate Aminotrans (AST/SGOT 9.0 U/L (12-37); Bilirubin, Total 0.8 mg/dL (0.1-1.0); Blood Urea Nitrogen 56.0 mg/dL (8-24); CO2, Blood 39.0 mmol/L (21-32); Calcium, Blood 8.8 mg/dL (8.5-10.1); Chloride, Blood 95.0 mmol/L (98-108); Creatinine, Blood 1.27 mg/dL (0.40-1.00); Globulin, Blood 2.9 g/dL (2.2-4.0); Glucose, Blood 204.0 mg/dL (70-99); Magnesium, Blood 2.2 mg/dL (1.6-2.4); Phosphorus, Blood 4.1 mg/dL (2.5-4.9); Potassium, Blood 3.7 mmol/L (3.5-5.5); Sodium, Blood 138.0 mmol/L (136-145); Total Protein, Blood 5.7 g/dL (6.4-8.2)
--- NOTE | 2025-02-06 05:48 | NUR ---
SHIFT SUMMERY PT REMAINS INTUBATED VIA ETT. VENT SETTING HAVE REMAINED UNCHANGED OVERNIGHT. OXYGEN SAT >92%. PT HAS BEEN AFIB 130-160S DESPITE MEDICATIONS FOR RATE. BP HAS BEEN WNL. SHE IS OPENING HER EYES SPONTANEOUSLY AND SHAKING HER HEAD YES AND NO TO QUESTIONS. SHE IS PULLING AGAINST HER RESTRAINTS. TF INFUSING AT GOAL. DILLON CATH INTACT PATENT AND DRAINING TO GRAVITY. PT IS SEDATED W/PROPOFOL, SEE [facility]. PT HAS HAD NO ACUTE CHANGES.
--- NOTE | 2025-02-06 11:00 | NUR ---
EXTUBATION PT TOLERATED SAT/SBT STARTING AT 0800, EXTUBATED AT 1009 TO BIPAP. BIPAP SETTINGS 14///35% FIO2 WITH SPO2 >92%. PT TOLERATED WELL, Q15 VSS. PT A&OX4, BUT ANXIOUS AND ATTEMPTING TO PULL OF BIPAP, REDIRECTED FREQUENTLY. CALL SPOUSE TO UPDATE, SPOUSE DID NOT ANSWER.
[2025-02-06] MEDS ORDERED: FentaNYL Citrate 50 MCG/ML 2 ML Injection IV PRN (15:15)
--- NOTE | 2025-02-06 18:28 | NUR ---
SHIFT SUMMARY PT WAS INTUBATED AND SEDATED AT ASSUMPTION OF CARE. STARTED SAT/SBT AT 0800, PT WAS EXTUBATED AT 1009 TO BIPAP. BIPAP SETTINGS 14/7/35%, SPO2 >92%. LUNG SOUNDS DIMINISHED BILATERAL LOWER LOBES, MORE DIMINISHED IN THE RIGHT. PT IN AFIB TACHY, HR IN 130-160S THIS AM, IMPROVED THIS PM WITH DOSAGE CHANGE HR IN 110S-120S. MAP>65 T/O SHIFT SBP 90-120S. PT DENIES CHEST PAIN/PRESSURE. PT DENIES ABD PAIN, NO BM TODAY. DILLON CATH IN PLACE, PATENT AND DRAINING TO GRAVITY. PICC LINE IN JUAN CARLOS, WNL. PT A&OX4, PT ANXIOUS AND FRUSTRATED. PT WILL ATTEMPT TO GET OUT OF BED AND WILL TAKE HER BIPAP OFF REPEATEDLY. EDU PROVIDED. PT TOLERATES SMALL BREAKS WITH NC AT 2-4L. PT BECOMES MORE SOMNOLENT AFTER BREAKS ON NC. PT REQUESTED HER . NOTIFIED AND STAYED AT BEDSIDE FOR APPROX AN HOUR. PT HAS CALL LIGHT WITHIN REACH WITH NO NEEDS EXPRESSED AT THIS TIME.
[2025-02-07] VITALS (48 sets, daily range): BP systolic 86–126; BP diastolic 56–88
[2025-02-07 04:29] LABS: Hematocrit 23.2 % (33.0-51.0); Hemoglobin 7.0 g/dL (11.5-16.0); Mean Corpuscular HGB Conc 30.2 g/dL (31.5-36.5); Mean Corpuscular Volume 101 fL (80-100); NRBC ABSOLUTE 0.04 K/mm3 (0.00-0.02); NRBC Auto 0.5 /100 WBC (0.0-0.2); Platelet Count 136 K/mm3 (150-400); RDW Coefficient Variation 15.1 % (11.7-14.2); RDW Standard Deviation 56.4 fL (35.1-46.3)
[2025-02-07 04:45] LABS: Alanine Aminotransfer (ALT/SGP 16.0 U/L (12-78); Albumin, Blood 2.6 g/dL (3.4-5.0); Albumin/Globulin Ratio 0.9 (0.8-1.8); Anion Gap 9.0 mmol/L (3-11); Aspartate Aminotrans (AST/SGOT 11.0 U/L (12-37); Bilirubin, Total 0.8 mg/dL (0.1-1.0); Blood Urea Nitrogen 56.0 mg/dL (8-24); CO2, Blood 39.0 mmol/L (21-32); Calcium, Blood 8.7 mg/dL (8.5-10.1); Chloride, Blood 98.0 mmol/L (98-108); Creatinine, Blood 1.17 mg/dL (0.40-1.00); Globulin, Blood 2.8 g/dL (2.2-4.0); Glucose, Blood 137.0 mg/dL (70-99); Magnesium, Blood 2.4 mg/dL (1.6-2.4); Phosphorus, Blood 4.8 mg/dL (2.5-4.9); Potassium, Blood 3.6 mmol/L (3.5-5.5); Sodium, Blood 142.0 mmol/L (136-145); Total Protein, Blood 5.4 g/dL (6.4-8.2)
[2025-02-07 04:46] LABS: BAND PERCENT MAN 13 % (0-8); BASOPHILS ABSOLUTE MAN 0.00 K/mm3 (0.00-0.23); BASOPHILS PERCENT MAN 0 % (0-2); EOSINOPHILS ABSOLUTE MAN 0.07 K/mm3 (0.00-0.68); EOSINOPHILS PERCENT MAN 1 % (0-6); LYMPHOCYTES ABSOLUTE MAN 0.37 K/mm3 (0.84-5.20); LYMPHOCYTES PERCENT MAN 5 % (21-46); MONOCYTES ABSOLUTE MAN 0.52 K/mm3 (0.16-1.47); MONOCYTES PERCENT MAN 7 % (4-13); MYELOCYTE ABSOLUTE MAN 0.07 K/mm3 (0.00-0.00); MYELOCYTE PERCENT MAN 1 % (0-0); NEUTROPHILS ABSOLUTE MAN 6.31 K/mm3 (1.96-9.15); PLASMA CELL ABSOLUTE MAN 0.07 K/mm3 (0.00-0.00); PLASMA CELLS PERCENT MAN 1 % (0-0); SEG NEUTROPHILS PERCENT MAN 72 % (41-73)
--- NOTE | 2025-02-07 06:36 | NUR ---
SHIFT SUMMARY: NO ACUTE CHANGES OVERNIGHT. PT SLEPT MOST OF SHIFT. PT REMAINED A&OX3 WITH SHORT MOMENTS OF CONFUSION/EPISODES OF HALLUCINATIONS (SHE ENDORSED SEEING CATS OR HEARING RADIOS). PT AFEBRILE AND DENIED PAIN. PT WAS COOPERATIVE W/CARE AND WORE BIPAP MOST OF SHIFT W/ SHORT BREAKS TO TAKE PO MEDS. PT USING NC ON 3L O2 DURING THESE BREAKS. SATS MAINTAINED>90%. SBP SOFT 90-110S, MAPS>65. HR AFIB. DENIED CHEST PAIN. ABD MILDLY DISTENDED, PT DENIED ANY DISCOMFORT. BT ACTIVE X4. ABD SOFT TO PALPATION. TEMP WILMA DC'D THIS MORNING, PT TOLERATED WELL. WICKING SYSTEM AND ATTENDS IN PLACE. PT DENIED ANY DISCOMFORT. PICC REMAINS IN MO INFUSING NS TKO. THIS RN TO REPORT TO ONCOMING RN. CARE CONTINUES.
[2025-02-07] MEDS ORDERED: CefTRIAXone 1000 MG Vial ONE (08:12)
[2025-02-07] MEDS ORDERED: Potassium Chl 20MEQ/Water100ML 100 ML IV STA (09:30)
--- NOTE | 2025-02-07 11:30 | NUR ---
AM NOTE: THIS RN ASSUMED CARE OF PT AT APPROX 0700, BEDSIDE REPORT FROM BETO CLAUDIO. PT ALERT, ORIENTED X4 WHEN ASKED ORIENTATION QUESTIONS, THOUGH MAKES ODD STATEMENTS AT TIMES. PT ASKED RN IF "ANYONE COULD BE SPARED TO TAKE (HER) ON A CRUISE." PT ABLE TO ANSWER QUESTIONS APPROPRIATELY & IS AGREEABLE W/ CARE. VSS. HR 80-120'S, AFIB ON MONITOR. BP STABLE, MAP >65. PT DENIES CHEST PAIN/PRESSURE. SPO2 >90% ON 3L VIA NC, SOB W/ EXERTION. EXP WHEEZE T/O. AFEBRILE. COLLETTE REMOVED THIS AM, PT UP TO BSC FOR BM W/ 1P ASSIST. NO OTHER NEEDS AT THIS TIME, CALL LIGHT IN REACH.
[2025-02-07 12:34] LABS: Hematocrit 25.3 % (33.0-51.0); Hemoglobin 7.6 g/dL (11.5-16.0)
[2025-02-07] MEDS ORDERED: Benzocaine Oral Spray 0.5ML UD ONE (15:12)
--- NOTE | 2025-02-07 15:12 | NUR ---
EGD: PT TO DAY SURGERY FOR EGD W/ TETO RN AT THIS TIME.
--- NOTE | 2025-02-07 15:33 | NUR ---
History, Chart, Medications and Allergies reviewed before start of procedure. Pre-Op teaching done. Pt verbalizes understanding. Patient confirms NPO status and agrees with scheduled surgery.
--- NOTE | 2025-02-07 17:04 | NUR ---
02/07/[address] SEE ANESTHESIA RECORDS. SIMETHICONE USED DURING PROCEDURE.
--- NOTE | 2025-02-07 18:05 | NUR ---
FALL & END OF SHIFT: THIS RN AT BREAK. BREAK RN REPORTS PT USED CALL LIGHT THEN WAS WITNESSED STANDING UP, REACHING DOWN FOR HER GLASSES SHE DROPPED, AND FALLING ONTO HER BACKSIDE. PT DID NOT HIT HER HEAD. ABRASION TO R FOREARM & L ELBOW NOTED, PHOTOS TAKEN & ABRASIONS DRESSED. DR. SANTIAGO NOTIFIED. LIFT UTILIZED TO ASSIST PT BACK TO BED, BED ALARM IN PLACE, FALL RISK MARKER UTILIZED OUTSIDE OF ROOM. PT EDUCATED ON IMPORTANCE OF CALLING & WAITING FOR STAFF PRIOR TO STANDING UP. PT IS INDEPENDENT AT BASELINE. PT REMAINS ALERT, ORIENTED X4. COOPERATIVE W/ ALL CARE THIS AFTERNOON/EVENING. UTILIZES CALL LIGHT. VSS. HR 80-110'S, AFIB ON MONITOR. BP STABLE, MAP >65. SPO2 >90% ON 3L VIA NC. AFEBRILE. ABLE TO USE BSC TO VOID, INCONTINENT URINARY VOID W/ ATTENDS IN PLACE. EGD COMPLETED THIS AFTERNOON. TOLERATING PO INTAKE WELL. NO OTHER NEEDS AT THIS TIME, CALL LIGHT IN REACH. BED ALARM ON.
[2025-02-08] VITALS (15 sets, daily range): BP systolic 90–116; BP diastolic 61–88
[2025-02-08 04:45] LABS: BASOPHILS ABSOLUTE AUTO 0.02 K/mm3 (0.00-0.23); BASOPHILS PERCENT AUTO 0 % (0-2); EOSINOPHILS ABSOLUTE AUTO 0.00 K/mm3 (0.00-0.68); EOSINOPHILS PERCENT AUTO 0 % (0-6); Hematocrit 24.8 % (33.0-51.0); Hemoglobin 7.4 g/dL (11.5-16.0); IMMATURE GRAN ABSOLUTE AUTO 0.30 K/mm3 (0.00-0.10); IMMATURE GRAN PERCENT AUTO 4 % (0-1); LYMPHOCYTES ABSOLUTE AUTO 0.24 K/mm3 (0.84-5.20); LYMPHOCYTES PERCENT AUTO 3 % (21-46); MONOCYTES ABSOLUTE AUTO 0.22 K/mm3 (0.16-1.47); MONOCYTES PERCENT AUTO 3 % (4-13); Mean Corpuscular HGB Conc 29.8 g/dL (31.5-36.5); Mean Corpuscular Volume 103 fL (80-100); NEUTROPHILS ABSOLUTE AUTO 7.16 K/mm3 (1.96-9.15); NEUTROPHILS PERCENT AUTO 90 % (41-73); NRBC ABSOLUTE 0.03 K/mm3 (0.00-0.02); NRBC Auto 0.4 /100 WBC (0.0-0.2); Platelet Count 145 K/mm3 (150-400); RDW Coefficient Variation 14.5 % (11.7-14.2); RDW Standard Deviation 54.5 fL (35.1-46.3)
--- NOTE | 2025-02-08 06:28 | NUR ---
SHIFT SUMMARY: NO ACUTE CHANGES T/O THE NIGHT. PT REMAINS DROWSY. PT A&O X2, UNABLE TO STATE WHAT TOWN SHE IS IN OR WHAT BUILDING WE ARE IN. PT REMAINS ABLE TO COMMUNICATE NEEDS AND FOLLOWS COMMANDS. PT CONTINUES TO HAVE SHORT EPISODES OF CONFUSION INTERMITTENTLY T/O THE NIGHT. AFEBRILE. LUNGS CLEAR/DIM, PT USING BIPAP APPROPRIATELY T/O THE NIGHT WITH ONLY SHORT BREAKS. PT WEARING 2-4L 02 VIA NC WHEN TAKING BREAKS, SATS>95%. SBP STABLE, MAPS>65. HR 80S-100S, AFIB. DENIED CHEST PAIN OR SOB. ABD SOFT, NONTENDER, BT ACTIVE X4. PT USING BEDSIDE COMMODE TO W/SBA. NO ISSUES REPORTED. PICC REMAINS SALINE LOCKED. CARE CONTINUES.
[2025-02-08 06:29] LABS: Alanine Aminotransfer (ALT/SGP 18.0 U/L (12-78); Albumin, Blood 2.9 g/dL (3.4-5.0); Albumin/Globulin Ratio 1.0 (0.8-1.8); Anion Gap 5.0 mmol/L (3-11); Aspartate Aminotrans (AST/SGOT 12.0 U/L (12-37); Bilirubin, Total 0.8 mg/dL (0.1-1.0); Blood Urea Nitrogen 60.0 mg/dL (8-24); CO2, Blood 40.0 mmol/L (21-32); Calcium, Blood 8.9 mg/dL (8.5-10.1); Chloride, Blood 97.0 mmol/L (98-108); Creatinine, Blood 1.18 mg/dL (0.40-1.00); Globulin, Blood 2.8 g/dL (2.2-4.0); Glucose, Blood 158.0 mg/dL (70-99); Potassium, Blood 3.6 mmol/L (3.5-5.5); Sodium, Blood 138.0 mmol/L (136-145); Total Protein, Blood 5.7 g/dL (6.4-8.2)
--- NOTE | 2025-02-08 08:00 | NUR ---
Assumed Care @0700 PT AWAKE AT SHIFT CHANGE AND WATCHING TV. A&OX4 AND ABLE TO MAKE NEEDS KNOWN. SPO2 >90% ON 3L NC. AFEBRILE. HR 80'S- 90'S. SYSTOLIC BP 100-120'S. TOLERATING PO INTAKE WELL. PT AMBULATES WITH STANDBY ASSIST TO BEDSIDE COMMODE TO VOID. PICC LINE TO LUE, PATENT, DRESSING WNL. SEE SHIFT ASSESSMENT.
[2025-02-08 08:24] LABS: IMMATURE RETIC FRACTION 33.4 % (2.3-16.0); RETIC HGB EQUIVALENT 27.1 pg (28.20-36.60); RETICULOCYTE ABSOLUTE 0.1076 M/mm3 (0.0200-0.1100); RETICULOCYTE COUNT PERCENT 4.54 % (0.50-2.50)
[2025-02-08 12:17] LABS: Ferritin, Serum 40.0 ng/mL (8-252); Total Iron Binding Capacity 447.0 ug/dL (250-450)
[2025-02-08] MEDS ORDERED: METO50ER PO (15:25)
[2025-02-08] MEDS ORDERED: ROSUVASTATIN CA10 MG PO (15:26)
[2025-02-08] MEDS ORDERED: CEFP200 PO (15:27)
[2025-02-08] MEDS ORDERED: PANT20 PO (15:28)
[2025-02-08] MEDS ORDERED: Prednisone20 MG PO (15:28)
[2025-02-08] MEDS ORDERED: VISBIOME 112.51 EACH PO (15:30)
[2025-02-08] MEDS ORDERED: FERSU300 PO (15:30)
--- NOTE | 2025-02-08 16:48 | NUR ---
PATIENT DISCHARGE VSS, A&Ox4, MAINTAINED>90% ON 2-4L THROUGHOUT SHIFT. PT AMBULATED ~100 FEET IN HALLWAY. STOPPED [facility] THROUGH O2 DROPPED TO 80%, NO COMPLAINTS OR SIGNS OF SOB. INCREASED 02 FROM 2L-4L AND PT RECOVERED QUICKLY. AMBULATED BACK TO ROOM WITHOUT ISSUE. MEDS SENT TO [facility]. ALL PERSONAL BELONGINGS GATHERED AND SENT HOME WITH PATIENT. PT BROUGHT CURBSIDE VIA WHEELCHAIR TO BE PICKED UP BY . AMBULATED SELF FROM WHEELCHAIR INTO CAR.
== END 2025-02-08 16:30 | disposition home or self-care (01) | DRG 208 ==
LOC: ER 07:18 → ICUE 08:33
PROVIDERS: Emergency Medicine; Internal Medicine Critical Care Medicine; Student in an Organized Health Care Education/Training Program; ADMIT Internal Medicine
PROC: 0BH17EZ Insertion of Endotracheal Airway into Trachea, Via Natural or Artificial Opening (ICD-10-PCS; principal; 2025-02-03)
PROC: 5A1945Z Respiratory Ventilation, 24-96 Consecutive Hours (ICD-10-PCS; 2025-02-03)
PROC: 02H633Z Insertion of Infusion Device into Right Atrium, Percutaneous Approach (ICD-10-PCS; 2025-02-05)
PROC: B5181ZA Fluoroscopy of Superior Vena Cava using Low Osmolar Contrast, Guidance (ICD-10-PCS; 2025-02-05)
PROC: 5A09357 Assistance with Respiratory Ventilation, Less than 24 Consecutive Hours, Continuous Positive Airway Pressure (ICD-10-PCS; 2025-02-06)
PROC: 0D9670Z Drainage of Stomach with Drainage Device, Via Natural or Artificial Opening (ICD-10-PCS; 2025-02-06)
PROC: 0DJ08ZZ Inspection of Upper Intestinal Tract, Via Natural or Artificial Opening Endoscopic (ICD-10-PCS; 2025-02-07)
DX: J96.21 Acute and chronic respiratory failure with hypoxia (principal); G92.8 Other toxic encephalopathy; J15.69 Pneumonia due to other Gram-negative bacteria; J44.0 Chronic obstructive pulmonary disease with (acute) lower respiratory infection; I50.32 Chronic diastolic (congestive) heart failure; J44.1 Chronic obstructive pulmonary disease with (acute) exacerbation; J90 Pleural effusion, not elsewhere classified; E87.29 Other acidosis; N17.9 Acute kidney failure, unspecified; I13.0 Hypertensive heart and chronic kidney disease with heart failure and stage 1 through stage 4 chronic kidney disease, or unspecified chronic kidney disease; I48.20 Chronic atrial fibrillation, unspecified; C34.31 Malignant neoplasm of lower lobe, right bronchus or lung; E87.3 Alkalosis; D62 Acute posthemorrhagic anemia; K92.2 Gastrointestinal hemorrhage, unspecified; Z99.81 Dependence on supplemental oxygen; I25.10 Atherosclerotic heart disease of native coronary artery without angina pectoris; E78.5 Hyperlipidemia, unspecified; D63.1 Anemia in chronic kidney disease; F12.90 Cannabis use, unspecified, uncomplicated; F10.11 Alcohol abuse, in remission; J96.22 Acute and chronic respiratory failure with hypercapnia; K21.9 Gastro-esophageal reflux disease without esophagitis; K31.89 Other diseases of stomach and duodenum; K22.89 Other specified disease of esophagus; Y84.2 Radiological procedure and radiotherapy as the cause of abnormal reaction of the patient, or of later complication, without mention of misadventure at the time of the procedure; N18.30 Chronic kidney disease, stage 3 unspecified; R53.81 Other malaise; I25.2 Old myocardial infarction; Z79.899 Other long term (current) drug therapy; Z88.1 Allergy status to other antibiotic agents; Z91.198 Patient's noncompliance with other medical treatment and regimen for other reason; Z87.891 Personal history of nicotine dependence; Z87.09 Personal history of other diseases of the respiratory system; Z98.890 Other specified postprocedural states; Z79.01 Long term (current) use of anticoagulants; Z79.51 Long term (current) use of inhaled steroids; Z99.89 Dependence on other enabling machines and devices
CPT/HCPCS: 31500; 36415; 36569; 51702; 70450; 71045; 80053; 82330; 82607; 82728; 82746; 82803; 82947; 83540; 83550; 83605; 83735; 83880; 84100; 84439; 84443; 84484; 85014; 85018; 85025; 85045; 85520; 85610; 85730; 86850; 86900; 86901; 86923; 87040; 87070; 87205; 87637; 93005; 93010; 94002; 94003; 94640; 94644; 94660; 94664; 94762; 96365-59; 96375-59; 99291-25; A9270; C1751; J0330; J0612; J0696; J1644; J1938; J1956; J2060; J2470; J2704; J2919; J3010; J3475; J3480; J7030; J7040; J7050; J7120